=== PATIENT | female | born 1955 | race Caucasian/White ===

== ENCOUNTER → 2024-02-10 | Outpatient (CLI) | payer MEDICARE, OTHER, SELFPAY ==
--- NOTE | 2024-02-10 14:13 | RAD_ITS ---
STUDY: X-RAY - LEFT HAND REASON FOR EXAM: Female, 68 years old. RHEUMATOID ARTHRITIS TECHNIQUE: 3 views of the left hand. COMPARISON: None. FINDINGS: There is generalized osteopenia. There is mild radiocarpal arthrosis. Normal distal radioulnar joint. Normal visualized carpal bones. Normal carpal articulations There is severe degenerative arthrosis at the first carpometacarpal articulation of the thumb. Normal second through fifth carpometacarpal joints. Normal metacarpi. Normal metacarpophalangeal joint of the thumb. Normal interphalangeal joint of the thumb. Normal proximal and distal phalanges of the thumb. Normal metacarpophalangeal joints of the second through fifth fingers. Normal proximal interphalangeal joints of the second through fifth fingers. There is mild degenerative arthrosis of the second and third DIP joints. Normal phalanges of the second through fifth fingers. The soft tissue structures are unremarkable. RAD/Hand Min 3 Views IMPRESSION: Degenerative arthrosis at the radiocarpal joint, first CMC joint, as well as second and third DIP joints. Electronically Signed: Andrew Means MD at 14:32 EDT ,
--- NOTE | 2024-02-10 14:15 | RAD_ITS ---
STUDY: X-RAY - RIGHT HAND REASON FOR EXAM: Female, 68 years old. RHEUMATOID ARTHRITIS TECHNIQUE: 3 views of the right hand. COMPARISON: None. FINDINGS: There is degenerative arthrosis of the radiocarpal joint. Normal distal radioulnar joint. Normal visualized carpal bones. Normal carpal articulations There is degenerative arthrosis at the carpometacarpal articulation of the thumb. Normal second through fifth carpometacarpal joints. Normal metacarpi. Normal metacarpophalangeal joint of the thumb. Normal interphalangeal joint of the thumb. Normal proximal and distal phalanges of the thumb. Normal metacarpophalangeal joints of the second through fifth fingers. Normal proximal interphalangeal joints of the second through fifth fingers. There is minimal degenerative arthrosis of the second through fifth DIP joints. Normal phalanges of the second through fifth fingers. The soft tissue structures are unremarkable. RAD/Hand Min 3 Views IMPRESSION: Degenerative arthrosis of the radiocarpal joint, first CMC joint, and second through fifth DIP joints. Electronically Signed: Andrew Means MD at 14:37 EDT ,
[2024-02-10 18:08] LABS: Absolute Lymphocyte Count 2.66 X10^3/uL (0.83-4.51); Absolute Neutrophil Count 4.5 X10^3/uL (2.0-7.7); Basophil# 0.05 X10^3/uL; Basophil% 0.6 % (0-1); Eosinophil# 0.18 X10^3/uL; Eosinophils% 2.3 % (0-5); Hematocrit 40.7 % (37-47); Hemoglobin 13.1 g/dL (12.0-15.0); Lymphocyte # 2.66 X10^3/ul (0.83-4.51); Lymphocyte % 33.6 % (19-41); Mean Corp Hgb Conc 32.2 g/dL (32-36); Mean Corpuscular Hgb 29.6 pg (27.0-32.0); Mean Corpuscular Volume 91.9 fL (81-99); Mean Platelet Vol. 11.5 fl (6.2-12.0); Monocyte# 0.56 X10^3/uL; Monocyte% 7.1 % (0-10); NRBC Flagged by Analyzer 0 % (0-5); Neutrophil # 4.45 X10^3/uL (2.7-7.7); Neutrophil % 56.1 % (47-70); Platelet Count 237 K/mm3 (150-450); RBC Distribution Width CV 12.6 % (11.6-14.6); RBC Distribution Width SD 42.5 fl (35.1-43.9); Red Blood Count 4.43 M/mm3 (4.2-5.4); White Blood Count 7.9 K/mm3 (4.4-11.0)
[2024-02-10 18:43] LABS: ALB/GLOB Ratio 1.2 RATIO (0.9-2.4); AST(SGOT) 21 U/L (15-37); Alanine Aminotransfer ALT/SGPT 31 U/L (13-56); Albumin, Serum 3.8 g/dL (3.2-5.0); Alkaline Phosphatase 74 U/L (45-117); Anion Gap 7 (5-15); BUN 20 mg/dL (7-18); BUN/Creat Ratio 22.5 RATIO (10-20); CRP < 2.90 mg/L (0.0-3.0); Calcium,Total 9.2 mg/dL (8.5-10.1); Chloride 108 mmol/L (98-107); Creatinine, Serum 0.89 mg/dL (0.55-1.02); EST Glomerular Filtration Rate 67 mL/min (>60); Est Glom Filt Rate - Afr Amer 81 mL/min (>60); Globulin 3.3 g/dL (2.2-4.2); Glucose 104 mg/dL (74-106); Protein, Total 7.1 g/dL (6.4-8.2); Sodium Level 141 mmol/L (136-145)
[2024-02-10 18:57] LABS: Erythrocyte Sedimentation Rate 11 mm/hr (0-30)
[2024-02-10 19:09] LABS: Hepatitis B Surface Antibody Non-Reactive; Hepatitis B Surface Antigen Non-Reactive (Nonreactive); Hepatitis C Antibody Non-Reactive (Nonreactive)
[2024-02-12 11:09] LABS: ANTINUCLEAR ANTIBODIES DIRECT Negative (Negative)
[2024-02-12 14:11] LABS: CCP IgG Antibodies 3 units (0-19)
== END | disposition home or self-care (01) ==
PROVIDERS: PCP Physician Assistant; Referring Provider Internal Medicine Rheumatology; Visit Provider Internal Medicine Rheumatology
DX: M05.79 Rheumatoid arthritis with rheumatoid factor of multiple sites without organ or systems involvement (principal); M79.7 Fibromyalgia
CPT/HCPCS: 36415; 73130; 80053; 85025; 85652; 86038; 86140; 86200; 86431; 86706; 86803; 87340

== ENCOUNTER → 2025-08-16 | Outpatient (CLI) | payer MEDICARE, OTHER, SELFPAY ==
--- OUTSIDE RECORDS SUMMARY | 2025-08-16 19:50 | XMS RPT_ITS | CCD ---
Author Organization [facility] Care Team Providers Care Cyber Security Engineer Name Role Phone Letha Cates Unavailable Unavailable Letha Cates M Unavailable Unavailable [facility] Unavailable Unavailable Letha Cates M Unavailable Unavailable Letha Cates M Unavailable Unavailable Letha Cates M Unavailable Unavailable [facility] Unavailable Unavailable [facility] Unavailable Unavailable Garrett Webb Unavailable Unavailable [facility] Unavailable Unavailable WebbGarrett leon Unavailable Unavailable WebbGrarett leon Unavailable Unavailable [facility] Unavailable Unavailable WebbGarrett leon Unavailable Unavailable WebbGarrett leon Unavailable Unavailable WebbGarrett leon Unavailable Unavailable [facility] Unavailable Unavailable Stentz, Arnold Unavailable Unavailable Unavailable Free, Text Entry Unavailable Unavailable Stentz, Arnold Unavailable Rudy Godoy Unavailable Unavailable Ms. Rudy Godoy Attending Nuzhatvaisabel cosby Stentz, Arnold Primary Care Unavailable Stentz, Arnold Attending Unavailable Stentz, Arnold Referring Unavailable Stentz, Arnold Primary Care Unavailable Stentz, Mr. Arnold Referring Unavailable Stentz, Mr. Arnold Primary Care Unavailable Stentz, Mr. Arnold Attending Unavailable Stentz, Mr. Arnold Referring Unavailable Stentz, Mr. Arnold Primary Care Unavailable Stentz, Mr. Arnold Attending Unavailable Stentz, Mr. Arnold Referring Unavailable Stentz, Mr. Arnold Primary Care Unavailable Stentz, Mr. Arnold Attending Unavailable Stentz, Mr. Arnold Primary Care Unavailable Stentz, Mr. Arnold Attending Unavailable Stentz, Mr. Arnold Referring Unavailable Stentz PA-C, Arnold Primary Care Provider Stentz PA-C, Arnold Unavailable Stentz, Arnold Primary Care Unavailable Steph Castorena Referring Unavailable Steph Castorena Attending Unavailable STENTZ, ARNOLD Primary Care Unavailable STENTZ, ARNOLD Primary Care Unavailable STENTZ, ARNOLD Primary Care Unavailable STENTZ, ARNOLD Primary Care Unavailable STENTZ, ARNOLD Primary Care Unavailable Stentz PA-C, Arnold Primary Care Provider Stentz PA-C, Arnold Unavailable [phone] STENTZ, ARNOLD Referring Unavailable STENTZ, ARNOLD Primary Care Unavailable STENTZ, ARNOLD Primary Care Unavailable JONELLE VIERA Attending Unavailable STENTZ, ARNOLD Primary Care Unavailable JONELLE VIERA Attending Unavailable Stentz PA-C, Arnold Primary Care Provider Stentz PA-C, Arnold Unavailable STENTZ, ARNOLD Attending Unavailable STENTZ, ARNOLD Primary Care Unavailable STENTZ, ARNOLD Attending Unavailable STENTZ, ARNOLD Referring Unavailable STENTZ, ARNOLD Primary Care Unavailable Allergies Allergy Classification Reported Allergen(s) Allergy Type Date of Onset Reaction(s) Facility (20 sources) Cortisone; Translations: [cortisone] Drug Allergy 3 Hives [facility] (16 sources) DULoxetine; Translations: [DULOXETINE] Drug Allergy 0 Nausea/vomiting [facility] (17 sources) FLUoxetine; Translations: [FLUOXETINE] Drug Allergy 1 [facility] Work Phone: (8 sources) Pneumococcal vaccine; Translations: [PNEUMOCOCCAL VACCINE] Drug Allergy 8 [facility] Work Phone: (17 sources) Sertraline; Translations: [SERTRALINE] Drug Allergy 1 [facility] Work Phone: Medications Current Medications Medication Drug Class(es) Dates Sig (Normalized) Sig (Original) acyclovir 400 mg oral tablet (20 sources) Herpesvirus Nucleoside Analog DNA Polymerase Inhibitor, Herpes Simplex Virus Nucleoside Analog DNA Polymerase Inhibitor, Herpes Zoster Virus Nucleoside Analog DNA Polymerase Inhibitor Start: 04-01-2025 take 1 tablet by mouth twice daily acyclovir (Zovirax) 400 mg tablet Indications: Herpes simplex viral infection Take 1 tablet (400 mg) by mouth 2 times a day. 180 tablet 3 04/01/2025 Active Start: 02-27-2024 take 1 tablet by yohannes twice daily acyclovir (Zovirax) 400 mg tablet Indications: Herpes simplex viral infection Take 1 tablet (400 mg) by mouth 2 times a day. 180 tablet 3 02/27/2024 Active Start: 03-07-2023 End: 03-07-2023 take 1 tablet by mouth twice daily acyclovir (Zovirax) 400 mg tablet Indications: Herpes simplex viral infection Take 1 tablet (400 mg) by mouth 2 times a day. 180 tablet 3 03/07/2023 Active [id number] 200 actuat albuterol 0.09 mg/actuat metered dose inhaler (3 sources) beta2-Adrenergic Agonist Start: 10-17-2023 End: 10-16-2024 take 2 puff(s) by inhalation every six hours for wheezing albuterol 90 mcg/actuation inhaler Indications: Influenza B , Acute bronchitis, unspecified organism Inhale 2 puffs every 6 hours if needed for wheezing. 18 g 10/17/2023 03/09/2024 Discontinued (Med List Cleanup) amoxicillin 875 mg / clavulanate 125 mg oral tablet (2 sources) Penicillin-class Antibacterial Start: 09-14-2024 End: 09-24-2024 take 1 tablet by mouth twice daily amoxicillin-pot clavulanate (Augmentin) 875-125 mg tablet Indications: acute bacterial sinusitis Take 1 tablet by mouth 2 times a day for 10 days. 20 tablet 09/14/2024 09/24/2024 Active Start: 05-27-2023 End: 06-03-2023 take 1 tablet by mouth twice daily amoxicillin-pot clavulanate (Augmentin) 875-125 mg tablet Indications: Acute non-recurrent maxillary sinusitis Take 1 tablet (875 mg) by mouth 2 times a day for 7 days. 14 tablet 0 05/27/2023 06/03/2023 Active atorvastatin 20 mg oral tablet (4 sources) HMG-CoA Reductase Inhibitor Start: 12-11-2024 End: 12-11-2025 take 1 tablet by mouth once daily atorvastatin (Lipitor) 20 mg tablet Indications: Mixed hyperlipidemia Take 1 tablet (20 mg) by mouth once daily. 90 tablet 3 12/11/2024 12/11/2025 Active azithromycin 250 mg oral tablet (3 sources) Macrolide Antimicrobial Start: 10-17-2023 End: 10-22-2023 azithromycin (Zithromax Z-Matthew) 250 mg tablet Indications: Influenza B , Acute bronchitis, unspecified organism Take 2 tablets (500 mg) on Day 1, followed by 1 tablet (250 mg) once daily on Days 2 through 5. 6 tablet 0 10/17/2023 10/22/2023 Active Start: 08-14-2022 take 2 tablets by mo ut once, then take 1 tablet by mouth once daily azithromycin 250 mg oral tablet ; Take 2 tabs (500mg) x 1 days, then 1 tab (250mg) once daily x 4 days Quantity: 6 Refills: 0 Ordered: 14-Aug-2022 Rudy Godoy Start: 14-Aug-2022 Generic Substitution Allowed Comments: Do not take dairy products, antacids, or iron preparations within one hour of this medication.Finish all this medication unless otherwise directed by prescriber. Comment on above: Do not take dairy pr oducts, antacids, or iron preparations within one hour of this medication.Finish all this medication unless otherwise directed by prescriber. bacitracin zinc 0.5 unt/mg topical ointment (2 sources) Start: 2024 End: 2024 bacitracin 500 unit/gram ointment Indications: Dog bite, initial encounter Apply topically 2 times a day. 14 g 09/14/2024 12/11/2024 Discontinued (Med List Cleanup) brompheniramine maleate 0.4 mg/ml / dextromethorphan hydrobromide 2 mg/ml / pseudoephedrine hydrochloride 6 mg/ml oral solution (2 sources) alpha-Adrenergic Agonist, Uncompetitive A-vwoydm-Z-aspartate Receptor Antagonist, Sigma-1 Agonist Start: 2022 End: 2022 take 5 mL by mouth four times daily as needed for congestion brompheniramine-ps eudoeph-DM 2-30-10 mg/5 mL syrup Indications: Acute recurrent maxillary sinusitis Take 5 mL by mouth 4 times a day as needed for congestion for up to 10 days. 120 mL 0 06/20/2023 06/30/2023 Active Start: 12-17-2022 End: 12-27-2022 take 5 mL by mouth four times daily as needed for congestion qucqfdjkhagvlsg-viakxqada-PB 2-30-10 mg/ 5 mL syrup Indications: Acute recurrent maxillary sinusitis Take 5 mL by mouth 4 times a day as needed for congestion for up to 10 days. 120 mL 0 12/17/2022 12/27/2022 Active clindamycin 150 mg oral capsule (2 sources) Lincosamide Antibacterial Start: 07-09-2023 End: 07-19-2023 take 2 capsules by mouth four times daily clindamycin (Cleocin) 150 mg capsule Indications: Chronic maxillary sinusitis Take 2 capsules (300 mg) by mouth 4 times a day for 10 days. 80 capsule 0 07/09/2023 07/19/2023 Active diclofenac sodium 50 mg delayed release oral tablet (11 sources) Nonsteroidal Anti-inflammatory Drug Start: 03-09-2024 End: 03-09-2025 take 1 tablet by mouth twice daily diclofenac (Voltaren) 50 mg EC tablet Indications: Arthritis Take 1 tablet (50 mg) by mouth 2 times a day. Do not crush, chew, or split. 180 tablet 3 03/09/2024 03/09/2025 Active Start: 11-01-2022 End: 09-19-2024 take 1 tablet by mouth three times daily diclofenac (Voltaren) 50 mg EC tablet Indications: Arthritis Take 1 tablet (50 mg) by mouth 3 times a day. Do not crush, chew, or split. 270 tablet 1 09/20/2023 03/09/2024 Discontinued (Reorder) Start: 10-11-2022 take 1 tablet by yohannes three times daily Diclofenac Sodium 50 MG Oral Tablet Delayed Release TAKE 1 TABLET 3 times daily Quantity: 90 Refills: 1 Ordered: 11-Oct-2022 Arnold Hernandes PA-C Start : 11-Oct-2022 Active DULoxetine 60 mg delayed release oral capsule (5 sources) Serotonin and Norepinephrine Reuptake Inhibitor take 1 capsule by mouth once daily DULoxetine (Cymbalta) [address] capsule Take 1 capsule (60 mg) by mouth once daily. Do not crush or chew. Active take 1 capsule by mouth once latrell ly DULoxetine (Cymbalta) [address] capsule Take 1 capsule (30 mg) by mouth once daily. Do not crush or chew. Active erythromycin 0.005 mg/mg ophthalmic ointment (1 source) Macrolide, Macrolide Antimicrobial Start: 05-05-2025 End: 05-12-2025 erythromycin (Romycin) 5 mg/gram (0.5 %) ophthalmic ointment Indications: Left eye pain Apply to left eye 3 times a day for [address] a 1/2 inch ribbon of ointment into the lower eyelid. 3.5 g 05/05/2025 05/12/2025 Active 24 hr etodolac 500 mg extended release oral tablet (2 sources) Nonsteroidal Anti-inflammatory Drug Start: 03-07-2023 End: 03-06-2024 take 1 tablet by mouth once daily etodolac XL (Lodine XL) 500 mg 24 hr tablet Indications: Primary osteoarthritis involving multiple joints Take 1 tablet (500 mg) by mouth once daily. 90 tablet 3 03/25/2023 05/27/2023 Discontinued (Ineffective) fluticasone propionate 0.05 mg/actuat metered dose nasal spray (20 sources) Corticosteroid Start: 06-14-2025 take 1 spray(s) nasal route twice daily fluticasone (Flonase) 50 mcg/actuation nasal spray Indications: Seasonal allergies Administer 1 spray into each nostril 2 times a day. 16 g 3 06/14/2025 Active Start: 03-09-2024 End: 06-14-2025 take 1 spray(s) nasal route twice daily fluticasone (Flonase) 50 mcg/actuation nasal spray Indications: Seasonal allergies Administer 1 spray into each nostril 2 times a day. 16 g 3 03/09/2024 06/14/2025 Discontinued (Reorder) Start: 06-07-2022 End: 03-09-2024 take 1 spray(s) nasal route twice daily fluticasone (Flonase) 50 mcg/actuation nasal spray Administer 1 spray into affected nostril(s) 2 times a day. 06/07/2022 03/09/2024 Discontinued (Reorder) Start: 06-07-2022 take 1 spray(s) nasa l route twice daily EQL Fluticasone Propionate 50 MCG/ACT SUSP USE 1 SPRAY IN EACH NOSTRIL TWICE DAILY. Quantity: 3 Refills: 3 Ordered: 12-Jun-2022 Anna MONTANO Arnold Start : 07-Jun-2022 Active folic acid 1 mg oral tablet (7 sources) Start: 03-03-2024 take 1 tablet by mouth in the morning folic acid (Folvite) 1 mg tablet Take 2 tablets (2 mg) by mouth early in the morning.. 03/03/2024 Active hydroxychloroquine sulfate 200 mg oral tablet (1 source) Antimalarial, Antirheumatic Agent Start: 02-24-2025 take 1.5 tablets by mouth in the morning hydroxychloroquine (Plaquenil) 200 mg tablet Take 1.5 tablets (300 mg) by mouth early in the morning.. 02/24/2025 Active levoFLOXacin 500 mg oral tablet (2 sources) Quinolone Antimicrobial Start: 06-11-2023 End: 06-18-2023 take 1 tablet by mouth once daily levoFLOXacin (Levaquin) 500 mg tablet Indications: Acute recurrent maxillary sinusitis Take 1 tablet (500 mg) by mouth once daily for 7 days. 7 tablet 0 06/11/2023 06/18/2023 Active Start: 12-17-2022 End: 12-27-2022 take 1 tablet by mouth once daily levoFLOXacin (Levaquin) 500 mg tablet Indications: Acute recurrent maxillary sinusitis Take 1 tablet (500 mg) by mouth once daily for 10 days. 10 tablet 0 12/17/2022 12/27/2022 Active loratadine 10 mg oral tablet (20 sources) take 1 tablet by yohannes th once daily loratadine (Claritin) 10 mg tablet Take 1 tablet (10 mg) by mouth once daily. Active Loratadine 10 MG Oral Tablet Quantity: 0 Refills: 0 Ordered: 05-Mar-2022 DO Active methotrexate 2.5 mg oral tablet (9 sources) Folate Analog Metabolic Inhibitor Start: 03-03-2024 End: 12-11-2024 take 5 tablets by mouth every week methotrexate (Trexall) 2.5 mg tablet Take 5 tablets (12.5 mg total) by mouth 1 (one) time per week. 03/03/2024 12/11/2024 Discontinued (Med List Cleanup) methotrexate, PF , 7.5 mg/0.3 mL syringe Inject under the skin. Active montelukast 10 mg oral tablet (20 sources) Leukotriene Receptor Antagonist Start: 04-06-2025 End: 04-06-2026 take 1 tablet by mouth once daily at bedtime montelukast (Singulair) 10 mg tablet Indications: Seasonal allergies Take 1 tablet (10 mg) by mouth once daily at bedtime. 90 tablet 3 04/06/2025 04/06/2026 Active Start: 06-07-2022 End: 03-09-2025 take 1 tablet by mouth once daily at bedtime montelukast (Singulair) 10 mg tablet Indications: Seasonal allergies Take 1 tablet (10 mg) by mouth once daily at bedtime. 90 tablet 3 03/09/2024 03/09/2025 Active omeprazole 40 mg delayed release oral capsule (20 sources) Proton Pump Inhibitor Start: 09-09-2023 End: 08-31-2025 take 1 capsule by mouth once daily omeprazole (PriLOSEC) [address] capsule Indications: Gastroesophageal reflux disease, unspecified whether esophagitis present Take 1 capsule (40 mg) by mouth once daily. 90 capsule 3 08/31/2024 08/31/2025 Active Start: 03-07-2023 End: 03-06-2024 take 1 capsule by mouth once daily omeprazole (PriLOSEC) [address] capsule Indications: Gastroesophageal reflux disease, unspecified whether esophagitis present Take 1 capsule (20 mg) by mouth once daily. 90 capsule 3 03/07/2023 09/09/2023 Discontinued (Reorder) take 2 capsules by m outh once daily before breakfast Omeprazole 20 MG Oral Capsule Delayed Release TAKE 2 CAPSULES DAILY EVERY MORNING BEFORE BREAKFAST. Quantity: 180 Refills: 3 Ordered: 05-Apr-2022 Arnold Hernandes PA-C Active ondansetron 4 mg oral tablet (20 sources) Serotonin-3 Receptor Antagonist Start: 06-07-2022 End: 03-09-2025 take 1 tablet by mouth every six hours for nausea and nausea ondansetron (Zofran) 4 mg tablet Indications: Nausea Take 1 tablet (4 mg) by mouth every 6 hours. 40 tablet 3 03/09/2024 03/09/2025 Active pregabalin 300 mg oral capsule (20 sources) Start: 06-10-2025 End: 07-11-2025 take 1 capsule by mouth once daily in the evening pregabalin (Lyrica) 300 mg capsule Indications: Polyarthritis with positive rheumatoid factor (Multi) , Primary osteoarthritis involving multiple joints , Rheumatoid arthritis with positive rheumatoid factor, involving unspecified site (Multi) Take 1 capsule (300 mg) by mouth once daily. 30 capsule 06/11/2025 1:03 PM EDT 06/10/2025 07/11/2025 Active Start: 04-08-2025 End: 05-12-2025 take 1 capsule by mouth once daily in the evening pregabalin (Lyrica) 300 mg capsule Indications: Polyarthritis with positive rheumatoid factor (Multi) , Primary osteoarthritis involving multiple joints , Rheumatoid arthritis with positive rheumatoid factor, involving unspecified site (Multi) Take 1 capsule (300 mg) by mouth once daily. 30 capsule 04/12/2025 6:10 PM EDT 04/08/2025 05/12/2025 Active Start: 02-08-2025 take 1 capsule by mo [facility] once daily pregabalin (Lyrica) 225 mg capsule Indications: Controlled type 2 diabetes with neuropathy Take 1 capsule (225 mg) by mouth once daily. 30 capsule 02/08/2025 Active Start: 12-11-2024 End: 01-10-2025 take 1 capsule by mouth once daily pregabalin (Lyrica) 300 mg capsule Indications: Controlled type 2 diabetes with neuropathy Take 1 capsule (300 mg) by mouth once daily. 30 capsule 12/11/2024 01/10/2025 Active Start: 11-05-2024 End: 12-11-2024 take 1 capsule by mouth once daily pregabalin (Lyrica) 225 mg capsule Indications: Controlled type 2 diabetes with neuropathy Take 1 capsule (225 mg) by mouth once daily. 30 capsule 11/05/2024 12/11/2024 Discontinued (Reorder) Start: 09-11-2024 End: 10-11-2024 take 1 capsule by mouth once daily pregabalin (Lyrica) 225 mg capsule Indications: Controlled type 2 diabetes with neuropathy Take 1 capsule (225 mg) by mouth once daily. 30 capsule 09/11/2024 10/11/2024 Active Start: 06-11-2024 End: 07-11-2024 take 1 capsule by mouth once daily pregabalin (Lyrica) 225 mg capsule Indications: Controlled type 2 diabetes with neuropathy Take 1 capsule (225 mg) by mouth once daily. 30 capsule 06/11/2024 07/11/2024 Active Start: 03-09-2024 End: 04-08-2024 take 1 capsule by mouth once daily pregabalin (Lyrica) 225 mg capsule Indications: Controlled type 2 diabetes with neuropathy (Multi) Take 1 capsule (225 mg) by mouth once daily. 30 capsule 03/09/2024 04/08/2024 Active Start: 02-11-2024 End: 03-09-2024 take 1 capsule by mouth once daily pregabalin (Lyrica) 300 mg capsule Indications: Controlled type 2 diabetes with neuropathy (Multi) Take 1 capsule (300 mg) by mouth once daily. 30 capsule 02/11/2024 03/09/2024 Discontinued (Reorder) Start: 10-14-2023 End: 01-09-2024 take 1 capsule by mouth once daily pregabalin (Lyrica) 300 mg capsule Indications: Controlled type 2 diabetes with neuropathy (Multi) Take 1 capsule (300 mg) by mouth once daily. 30 capsule 12/10/2023 01/09/2024 Active Start: 08-15-2023 End: 10-09-2023 take 1 capsule by mouth once daily pregabalin (Lyrica) 300 mg capsule Indications: Controlled type 2 diabetes with neuropathy (CMS/HCC) Take 1 capsule (300 mg) by mouth once daily. 30 capsule 0 09/09/2023 10/09/2023 Active Start: 05-14-2023 End: 07-11-2023 take 1 capsule by mouth once daily pregabalin (Lyrica) 300 mg capsule Indications: Controlled type 2 diabetes with neuropathy (CMS/HCC) Take 1 capsule (300 mg) by mouth once daily. 30 capsule 0 06/11/2023 07/11/2023 Active Start: 02-15-2023 End: 03-17-2023 take 1 capsule by mouth once daily pregabalin (Lyrica) 300 mg capsule Indications: Controlled type 2 diabetes with neuropathy (CMS/HCC) Take 1 capsule (300 mg) by mouth once daily. 30 capsule 0 02/15/2023 03/17/2023 Active Start: 12-07-2022 End: 01-06-2023 take 1 capsule by mouth once daily pregabalin (Lyrica) 300 mg capsule Indications: Controlled type 2 diabetes with neuropathy (CMS/HCC) Take 1 capsule (300 mg) by mouth once daily. 30 capsule 0 12/07/2022 01/06/2023 Active take 1 capsule by [facility] once daily Pregabalin 300 MG Oral Capsule TAKE 1 CAPSULE Daily Quantity: 30 Refills: 0 Ordered: 08-Oct-2022 Stentchetna PA-C Arnold Active take 1 capsule by [facility] twice daily Pregabalin 300 MG Oral Capsule Take 1 capsule twice daily Quantity: 60 Refills: 0 Ordered: 05-Jun-2022 Stentchetna COSME-C, Arnold Active take [address] [facility] at bedtime Pregabalin 300 MG Oral Capsule TAKE 2 CAPSULE Bedtime Quantity: 60 Refills: 0 Ordered: 05-Apr-2022 Anna MONTANO Arnold Active propranolol hydrochloride 80 mg oral tablet (20 sources) beta-Adrenergic Kris Start: 06-11-2023 End: 06-14-2026 take 1 tablet by mouth once daily propranolol (Inderal) 80 mg tablet Indications: Migraine without status migrainosus, not intractable, unspecified migraine type Take 1 tablet (80 mg) by mouth once daily. 90 tablet 3 06/14/2025 06/14/2026 Active Start: 06-07-2022 take 1 capsule by [facility] once daily Propranolol HCl ER 80 MG Oral Capsule Extended Release 24 Hour TAKE 1 CAPSULE Daily Quantity: 90 Refills: 3 Ordered: 12-Jun-2022 Stentchetna PA-C Arnold Start : 07-Jun-2022 Active take 1 tablet by [facility] once daily Propranolol HCl - 80 MG Oral Tablet Take 1 tablet daily Quantity: 90 Refills: 3 Ordered: 05-Apr-2022 Stentchetna COSME-C Arnold Active rosuvastatin calcium 10 mg oral tablet (20 sources) HMG-CoA Reductase Inhibitor Start: 03-07-2023 End: 03-09-2025 take 1 tablet by mouth once daily at bedtime rosuvastatin (Crestor) 10 mg tablet Indications: Hyperlipidemia, unspecified hyperlipidemia type Take 1 tablet (10 mg) by mouth once daily at bedtime. 90 tablet 3 03/09/2024 12/11/2024 Discontinued (Med List Cleanup) semaglutide (OZEMPIC) 1 mg/dose (4 mg/3 mL) pen injector (2 sources) Start: 05-31-2024 End: 06-30-2024 inject 1 mg by subcutaneous injection every week semaglutide (OZEMPIC) 1 mg/dose (4 mg/3 mL) pen injector Indications: Controlled type 2 diabetes with neuropathy Inject 1 mg under the skin 1 (one) time per week. 3 mL 05/31/2024 06/30/2024 Active Start: 03-15-2024 End: 04-14-2024 inject 1 mg by subcutaneous injection every week semaglutide (OZEMPIC) 1 mg/dose (4 mg/3 mL) pen injector Indications: Controlled type 2 diabetes with neuropathy (Multi) Inject 1 mg under the skin 1 (one) time per week. 3 mL 03/15/2024 04/14/2024 Active semaglutide (Ozempic) 2 mg/d ose (8 mg/3 mL) pen injector (2 sources) Start: 06-30-2024 End: 12-11-2024 semaglutide (Ozempic) 2 mg/d ose (8 mg/3 mL) pen injector Indications: Controlled type 2 diabetes with neuropathy Inject 2 mg under the skin every 7 days. 9 mL 3 06/30/2024 12/11/2024 Discontinued (Side effects) Start: 06-30-2024 semaglutide (O zempic) 2 mg/dose (8 mg/3 mL) pen injector Indications: Controlled type 2 diabetes with neuropathy Inject 2 mg under the skin every 7 days. 9 mL 3 06/30/2024 Active semaglutide 0.25 mg or 0.5 mg (2 mg/3 mL) pen injector (2 sources) Start: 03-15-2024 inject 0.25 mg by subcutaneous injection every week, then inject 0.5 mg by subcutaneous injection every week semaglutide 0.25 mg or 0.5 mg (2 mg/3 mL) pen injector Indications: Controlled type 2 diabetes with neuropathy Inject 0.25 mg under the skin 1 (one) time per week for 30 days, THEN 0.5 mg 1 (one) time per week. 6 mL 03/15/2024 Active Start: 03-15-2024 End: 05-14-2024 inject 0.25 mg by subcutaneous injection every week, then inject 0.5 mg by subcutaneous injection every week semaglutide 0.25 mg or 0.5 mg (2 mg/3 mL) pen injector Indications: Controlled type 2 diabetes with neuropathy (Multi) Inject 0.25 mg under the skin 1 (one) time per week for 30 days, THEN 0.5 mg 1 (one) time per week. 6 mL 03/15/2024 05/14/2024 Active tetracaine hydrochloride 5 mg/ml ophthalmic solution (2 sources) [facility] Start: 05-05-2025 tetracaine (Altacaine) 0.5 % ophthalmic solution 1 drop tirzepatide (Mounjaro) 10 mg/0.5 mL pen injector (2 sources) Start: 05-10-2025 inject 10 mg by subcutaneous injection every week tirzepatide (Mounjaro) 10 mg/0.5 mL pen injector Indications: Controlled type 2 diabetes with neuropathy (Multi) Inject 10 mg under the skin 1 (one) time per week. 2 mL 1 05/10/2025 Active Start: 03-11-2025 inject 10 mg by subc utaneous injection every week tirzepatide (Mounjaro) 10 mg/0.5 mL pen injector Indications: Controlled type 2 diabetes with neuropathy Inject 10 mg under the skin 1 (one) time per week. 2 mL 1 03/11/2025 Active tirzepatide (Mounjaro) 5 mg/0.5 mL pen injector (2 sources) Start: 12-11-2024 End: 03-11-2025 inject 5 mg by subcutaneous injection every week tirzepatide (Mounjaro) 5 mg/0.5 mL pen injector Indications: Controlled type 2 diabetes with neuropathy Inject 5 mg under the skin 1 (one) time per week. 6 mL 12/11/2024 03/11/2025 Active Completed/Discontinued Medications Medication Drug Class(es) Dates Sig (Normalized) Sig (Original) celecoxib 100 mg oral capsule (15 sources) Nonsteroidal Anti-inflammatory Drug take 1 capsule by mouth once daily in the morning, then take 2 capsules by mouth once daily in the evening Celecoxib 100 MG Oral Capsule TAKE 1 CAPSULE EVERY MORNING, AND TAKE 2 CAPSULES EVERY EVENING. Quantity: 270 Refills: 3 Ordered: 02-Aug-2022 Arnold Hernandes PA-C Active take 2 capsules by mouth once da rosa isela Celecoxib 100 MG Oral Capsule TAKE 2 CAPSULE Daily Quantity: 180 Refills: 3 Ordered: 10-Apr-2022 Arnold Hernandes PA-C Active meloxicam 15 mg oral tablet (2 sources) Nonsteroidal Anti-inflammatory Drug Start: 10-01-2022 take 1 tablet by mouth once daily Meloxicam 15 MG Oral Tablet Take 1 tablet daily Quantity: 30 Refills: 2 Ordered: 01-Oct-2022 Arnold Hernandes PA-C Start : 01-Oct-2022 Active methylPREDNISolone (3 sources) Corticosteroid Start: 10-17-2023 End: 12-10-2023 methylPREDNISolone (Medrol Dospak) 4 mg tablets Indications: Influenza B , Acute bronchitis, unspecified organism Take as directed on package. 21 tablet 10/17/2023 12/10/2023 Discontinued (Med List Cleanup) Start: 10-17-2023 methylPREDNISo lone (Medrol Dospak) 4 mg tablets Indications: Influenza B , Acute bronchitis, unspecified organism Take as directed on package. 21 tablet 0 10/17/2023 Active Start: 06-11-2023 End: 06-18-2023 methylPREDNISolone (Medrol D ospak) 4 mg tablets Indications: Acute recurrent maxillary sinusitis Take as directed on package. 21 tablet 0 06/11/2023 06/18/2023 Active potassium 99 mg extended rel ease oral tablet (18 sources) Potassium 99 MG Oral Tablet Quantity: 0 Refills: 0 Ordered: 05-Mar-2022 DO Active Womens Daily Formula TABS (13 sources) Womens Daily For bernie TABS Quantity: 0 Refills: 0 Ordered: 05-Mar-2022 DO Active Problems Active Problems Problem Classification Problem Date Documented Da te Episodic/Chronic Abdominal pain (1 source) Epigastric pain; Translations: [Epigastric pain] 08-29-2023 Episodic Acute bronchitis (1 source) Acute bronchitis; Translations: [Acute bronchitis, unspecified] 10-17-2023 Episodic Diabetes mellitus with complications (20 sources) Diabetes mellitus; Translations: [Diabetes with neurological manifestations, type II or unspecified type, not stated as uncontrolled] Onset: 3 03-07-2023 Chronic Disorders of lipid metabolism (20 sources) Hyperlipidemia; Translations: [Other and unspecified hyperlipidemia] Onset: 3 03-07-2023 Chronic Esophageal disorders (20 sources) Gastroesophageal reflux disease; Translations: [Esophageal reflux] Onset: 3 03-07-2023 Chronic Headache; including migraine (20 sources) Migraine; Translations: [Migraine, unspecified, without mention of intractable migraine without mention of status migrainosus] Onset: 4 06-11-2024 Chronic Headache; including migraine (4 sources) Headache; including migraine; Translations: [Headache, unspecified] Onset: 2 08-14-2022 Comment on above: HEADACHE EAR PAIN Influenza (1 source) Influenza due to Influenza B virus; Translations: [Influenza due to other identified influenza virus with other respiratory manifestations] 10-17-2023 Episodic Malaise and fatigue (2 sources) Other malaise; Translations: [Other malaise] Onset: 2 Episodic Osteoarthritis (20 sources) Arthritis; Translations: [Arthropathy, unspecified, site unspecified] Onset: 3 03-07-2023 Chronic Other aftercare (18 sources) H/O: high risk medication; Translations: [Long-term (current) use of other medications] 09-09-2023 Episodic Other bone disease and musculoskeletal deformities (2 sources) Degenerative joint disease involving multiple joints; 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, multiple sites] Onset: 3 03-07-2023 Chronic Other connective tissue disease (18 sources) Cramp in lower limb; Translations: [Cramp of limb] Episodic Other connective tissue disease (1 source) Myalgia, unspecified site; Translations: [Myalgia, unspecified site] Onset: 2 Episodic Other eye disorders (1 source) Pain of left eye; Translations: [Ocular pain, left eye] 05-05-2025 Episodic Other eye disorders (2 sources) Ocular pain, left eye; Translations: [Ocular pain, left eye] Onset: 5 Episodic Other gastrointestinal disorders (1 source) Flatulence symptom ; Translations: [Flatulence] 08-29-2023 Episodic Other gastrointestinal disorders (1 source) Constipation; Translations: [Constipation, unspecified] 08-29-2023 Episodic Other non-traumatic joint disorders (4 sources) Joint pain; Translations: [Pain in joint, site unspecified] 12-10-2023 Episodic Other nutritional; endocrine; and metabolic disorders (16 sources) Obesity; Translations: [Obesity, unspecified] Chronic Other screening for suspected conditions (not mental disorders or infectious disease) (20 sources) Patient encounter status; Translations: [Other screening mammogram] Onset: 3 Episodic Other upper respiratory disease (20 sources) Seasonal allergy; Translations: [Allergic rhinitis, cause unspecified] Onset: 3 03-07-2023 Chronic Other upper respiratory disease (2 sources) Other seasonal allergic rhinitis; Translations: [Other seasonal allergic rhinitis] Onset: 3 Chronic Other upper respiratory infections (3 sources) Chronic maxillary sinusitis; Translations: [Chronic maxillary sinusitis] 06-28-2023 Chronic Other upper respiratory infections (8 sources) Acute pharyngitis; Translations: [Acute pharyngitis] Onset: 2 08-14-2022 Episodic Residual codes; unclassified (3 sources) Postmenopausal state; Translations: [Asymptomatic menopausal state] 09-09-2023 Episodic Rheumatoid arthritis and related disease (16 sources) Polyarthropathy; Translations: [Other rheumatoid arthritis with rheumatoid factor of unspecified site] Onset: 4 Resolved: 5 12-10-2023 Chronic Unclassified (1 source) 3 MONTHS 06-07-2022 Comment on above: 3 MONTHS Unclassified (1 source) ENCOUNTER FOR SCREENING MAMMOGRAM FOR BREAST CANCER - (Z12.31) 03-05-2022 Comment on above: ENCOUNTER FOR SCREEN ING MAMMOGRAM FOR BREAST CANCER - (Z12.31) Unclassified (1 source) Contact with and (suspected) exposure to COVID-19; Translations: [Contact with and (suspected) exposure to COVID-19] Onset: 2 Unclassified (2 sources) Patient encounter status 12-11-2024 Past or Other Problems Problem Classification Problem Date Documented Da te Episodic/Chronic E Codes: Natural/environment (3 sources) Dog bite - wound; Translations: [Bitten by dog, initial encounter] Onset: 09-14-2024 09-14-2024 Episodic Nausea and vomiting (20 sources) Nausea; Translations: [Nausea alone] Onset: 03-07-2023 03-07-2023 Episodic Other aftercare (4 sources) Other terminal operations supervisor (current) drug therapy; Translations: [Other assisted (current) drug therapy] Onset: 04-24-2024 Episodic Other connective tissue disease (2 sources) Fibromyalgia; Translations: [Fibromyalgia] Onset: 04-24-2024 Episodic Unclassified (20 sources) Onset: 12-17-2022 Resolved: 06-14-2025 12-17-2022 Viral infection (20 sources) Herpes simplex; Translations: [Herpes simplex without mention of complication] Onset: 03-07-2023 03-07-2023 Episodic Results Test Name Value Interpretation Reference Range Facility ALBUMIN, RANDOM URINE W/CREA TININEon 06-09-2025 ALBUMIN, URINE 0.4 mg/dL Normal See Note: [facility] Comment on above: Result Comment: Refe rence Range: Reference Range Not established Performed By: #### 7 600, 73756, 6517, 68362, 1759 #### [facility] [address], [address] [place] [address] Archivist Military History: George Coello MD ALBUMIN/CREATININE RATIO, RANDOM URINE 3 mg/g creat Normal <30 [facility] Comment on above: Result Comment: The ADA defines abnormalities in albumin excretion as follows: Albuminuria Category Result (mg/g creatinine) Normal to Mildly increased <30 Moderately increased 30-299 Severely increased > OR = 300 The ADA recommends that at least two of three specimens collected within a 3-6 month period be abnormal before considering a patient to be within a diagnostic category. Performed By: #### 7 600, 89995, 6517, 61183, 1759 #### [facility] [address], [address] [place] [address] Archivist Military History: George Coello MD Creatinine (U) [Mass/Vol] 117 mg/dL Normal 20-275 [facility] Comment on above: Performed By: #### 7 600, 48503, 6517, 02718, 1759 #### [facility] [address], [address] [place] [address] Archivist Military History: George Coello MD CBC (H/H, RBC, INDICES, WBC, PLT)on 06-09-2025 Erythrocyte distribution width (RBC) [Ratio] 12.9 % Normal 11.0-15.0 [facility] Comment on above: Performed By: #### 3 61, 19385, 175, 73782, 7600 #### [facility] of [address], [address] [place] [address] Archivist Military History: George Coello MD Hematocrit (Bld) [Volume fraction] 42.1 % Normal 35.0-45.0 [facility] Comment on above: Performed By: #### 3 61, 83562, 175, 89796, 7600 #### [facility] of [place] [address] Archivist Military History: George Coello MD Hemoglobin (Bld) [Mass/Vol] 14.0 g/dL Normal 11.7-15.5 [facility] Comment on above: Performed By: #### 3 61, , 175, 66015, 7600 #### [facility] of [address], [address] [place] [address] Archivist Military History: George Coello MD MCH (RBC) [Entitic mass] 32.6 pg Normal 27.0-33.0 [facility] Comment on above: Performed By: #### 3 61, 00405, 175, 24881, 7600 #### [facility] [place] [address] Archivist Military History: George Coello MD MCHC (RBC) [Mass/Vol] 33.3 g/dL Normal 32.0-36.[address] [facility] Comment on above: Result Comment: For adults, a slight decrease in the calculated MCHC value (in the range of 30 to 32 g/dL) is most likely not clinically significant; however, it should be interpreted with caution in correlation with other red cell parameters and the patient's clinical condition. Performed By: #### 3 61, 62653, 175, 34142, 7600 #### [facility] [place] [address] Archivist Military History: George Coello MD MCV (RBC) [Entitic vol] 97.9 fL Normal 80.0-100.0 [facility] Comment on above: Performed By: #### 3 6127, 48978, 1759, 19092, 7600 #### [facility] of [place] [address] Archivist Military History: George Coello MD Platelet mean volume (Bld) [Entitic vol] 10.4 fL Normal 7.5-12.5 [facility] Comment on above: Performed By: #### 3 61, 25957, 175, 68773, 7600 #### [facility] of [place] [address] Archivist Military History: George Coello MD Platelets (Bld) [#/Vol] 257 10*3/uL Normal 140-400 [facility] Comment on above: Performed By: #### 3 61, 96982, 175, 67825, 7600 #### [facility] of [place] [address] Archivist Military History: George Coello MD RBC (Bld) [#/Vol] 4.30 10*6/uL Normal 3.80-5.10 [facility] Comment on above: Performed By: #### 3 61, 43187, 175, 71076, 7600 #### [facility] of [place] [address] Archivist Military History: George Coello MD WBC (Bld) [#/Vol] 5.8 10*3/uL Normal 3.8-10.8 [facility] Comment on above: Performed By: #### 3 61, 23125, 1759, 55807, 7600 #### [facility] of [place] [address] Archivist Military History: George Coello MD COMPREHENSIVE METABOLIC PANE L W/ANION GAPon 06-09-2025 Albumin [Mass/Vol] 3.9 g/dL Normal 3.6-5.1 [facility] Comment on above: Performed By: #### 7 600, 52224, 6517, 43594, 1759 #### [facility] of [place] [address] Archivist Military History: George Coello MD ALP [Catalytic activity/Vol] 44 U/L Normal 37-153 [facility] Comment on above: Performed By: #### 7 600, 99003, 6517, 94771, 1759 #### [facility] of [place] [address] Archivist Military History: George Coello MD ALT [Catalytic activity/Vol] 19 U/L Normal 6-29 [facility] Comment on above: Performed By: #### 7 600, 69535, 6517, 51083, 175 #### [facility] [place] [address] Archivist Military History: George Coello MD AST [Catalytic activity/Vol] 22 U/L Normal 10-35 [facility] Comment on above: Performed By: #### 7 600, 65108, 6517, 27129, 175 #### [facility] [place] [address] Archivist Military History: George Coello MD Bilirubin [Mass/Vol] 0.6 mg/dL Normal 0.2-1.2 [facility] Comment on above: Performed By: #### 7 600, 23847, 6517, 54839, 175 #### [facility] of [place] [address] Archivist Military History: George Coello MD Calcium [Mass/Vol] 9.3 mg/dL Normal 8.6-10.4 [facility] Comment on above: Performed By: #### 7 600, 76069, 6517, 94472, 1759 #### [facility] of [place] [address] Archivist Military History: George Coello MD Chloride [Moles/Vol] 105 mmol/L Normal 98-110 [facility] Comment on above: Performed By: #### 7 600, 28908, 6517, 32076, 1759 #### [facility] [place] [address] Archivist Military History: George Coello MD CO2 [Moles/Vol] 32 mmol/L Normal 20-32 [facility] Comment on above: Performed By: #### 7 600, 48376, 6517, 72274, 1759 #### [facility] [place] [address] Archivist Military History: George Coello MD Creatinine [Mass/Vol] 0.69 mg/dL Normal 0.50-1.[address] [facility] Comment on above: Performed By: #### 7 600, 78950, 6517, 08459, 1759 #### [facility] [place] [address] Archivist Military History: George Coello MD ELECTROLYTE BALANCE 7 mmol/L (calc) Normal 7-17 [facility] Comment on above: Performed By: #### 7 600, 83324, 6517, 95120, 1759 #### [facility] [place] [address] Archivist Military History: George Coello MD GFR/1.73 sq M.predicted among non-blacks MDRD (S/P/Bld) [Vol rate/Area] 94 mL/min/{1.73_m2} Normal > OR = 60 [facility] Comment on above: Performed By: #### 7 600, 24488, 6517, 80863, 1759 #### [facility] of [address], [address] [place] [address] Archivist Military History: George Coello MD Glucose [Mass/Vol] 102 mg/dL High 65-99 [facility] Comment on above: Result Comment: Fasting reference interval For someone without known diabetes, a glucose value between 100 and 125 mg/dL is consistent with prediabetes and should be confirmed with a follow-up test. Performed By: #### 7 600, 45241, 6517, 55059, 1759 #### [facility] of [address], [address] [place] [address] Archivist Military History: George Coello MD Potassium [Moles/Vol] 4.1 mmol/L Normal 3.5-5.[address] [facility] Comment on above: Performed By: #### 7 600, 28735, 6517, 02231, 1759 #### [facility] of [address], [address] [place] [address] Archivist Military History: George Coello MD Protein [Mass/Vol] 5.8 g/dL Low 6.1-8.1 [facility] Comment on above: Performed By: #### 7 600, 27634, 6517, 25794, 1759 #### [facility] of [address], [address] [place] [address] Archivist Military History: George Coello MD Sodium [Moles/Vol] 144 mmol/L Normal 135-146 [facility] Comment on above: Performed By: #### 7 600, 64945, 6517, 15170, 1759 #### [facility] [address], [address] [place] [address] Archivist Military History: George Coello MD Urea nitrogen [Mass/Vol] 15 mg/dL Normal 7-25 [facility] Comment on above: Performed By: #### 7 600, 39314, 6517, 17612, 1759 #### [facility] of [place] [address] Archivist Military History: George Coello MD HEMOGLOBIN A1c WITH eAGon eAG (mmol/L) 6.0 mmol/L Normal [facility] Comment on above: Performed By: #### 3 6127, 33047, 1759, 61076, 7600 #### [facility] of [address], [address] [place] [address] Archivist Military History: George Coello MD HbA1c (Bld) [Mass fraction] 5.4 % Normal <5.7 [facility] Comment on above: Result Comment: For the purpose of screening for the presence of diabetes: <5.7% Consistent with the absence of diabetes 5.7-6.4% Consistent with increased risk for diabetes (prediabetes) > or =6.5% Consistent with diabetes This assay result is consistent with a decreased risk of diabetes. Currently, no consensus exists regarding use of hemoglobin A1c for diagnosis of diabetes in children. According to [place] Diabetes Association (ADA) guidelines, hemoglobin A1c <7.0% represents optimal control in non- diabetic patients. Different metrics may apply to specific patient populations. Standards of Medical Care in Diabetes(ADA). Performed By: #### 3 6127, 70156, 1759, 90130, 7600 #### [facility] [address], [address] [place] [address] Archivist Military History: George Coello MD Magnesium [Mass/Vol] 108 mg/dL Normal [facility] Comment on above: Performed By: #### 3 6127, 73246, 1759, 09506, 7600 #### [facility] [address], [address] [place] [address] Archivist Military History: George Coello MD LIPID PANEL, [place] [address] Cholesterol [Mass/Vol] 152 mg/dL Normal <200 [facility] Comment on above: Order Comment: FASTI NG:YES FASTING: YES Performed By: #### 7 600, 60603, 6517, 91102, 1759 #### [facility] [address], [address] [place] [address] Archivist Military History: George Coello MD Cholesterol in HDL [Mass/Vol] 49 mg/dL Low > OR = 50 [facility] Comment on above: Order Comment: FASTI NG:YES FASTING: YES Performed By: #### 7 600, 01307, 6517, 18113, 1759 #### [facility] [place] [address] Archivist Military History: George Coello MD Cholesterol in LDL [Mass/Vol] 81 mg/dL Normal [facility] Comment on above: Order Comment: FASTI NG:YES FASTING: YES Result Comment: Refe rence range: <100 Desirable range <100 mg/dL for primary prevention; <70 mg/dL for patients with CHD or diabetic patients with > or = 2 CHD risk factors. LDL-C is now calculated using the Patito calculation, which is a validated novel method providing better accuracy than the Friedewald equation in the estimation of LDL-C. Luciano DAVIS et al. ISABEL. 2013;310(19): 4671-6207 (http://education.FasterPants.Slanissue/faq/EGG797) Performed By: #### 7 600, 37262, 6517, 70766, 1759 #### [facility] [address], [address] [place] [address] Archivist Military History: George Coello MD Cholesterol.total/Elsie sterol in HDL [Mass ratio] 3.1 {ratio} Normal <5.0 [facility] Comment on above: Order Comment: FASTI NG:YES FASTING: YES Performed By: #### 7 600, 87633, 6517, 35352, 1759 #### [facility] [address], [address] [place] [address] Archivist Military History: George Coello MD NON HDL CHOLESTEROL 103 mg/dL (calc) Normal <130 [facility] Comment on above: Order Comment: FASTI NG:YES FASTING: YES Result Comment: For patients with diabetes plus 1 major ASCVD risk factor, treating to a non-HDL-C goal of <100 mg/dL (LDL-C of <70 mg/dL) is considered a therapeutic option. Performed By: #### 7 600, 83638, 6517, 76683, 1759 #### [facility] [address], [address] [place] [address] Archivist Military History: George Coello MD Triglyceride [Mass/Vol] 123 mg/dL Normal <150 [facility] Comment on above: Order Comment: FASTI NG:YES FASTING: YES Performed By: #### 7 600, 74509, 6517, 09388, 1759 #### [facility] [address], [address] [place] [address] Archivist Military History: George Coello MD CBC (INCLUDES DIFF/PLT)on Basophils (Bld) [#/Vol] 0.03 10*3/uL Normal 0-200 [facility] Comment on above: Performed By: #### 1 0231, 6399 #### [facility] of [place] [address] Archivist Military History: George Coello MD Basophils/100 WBC (Bld) 0.4 % Normal [facility] Comment on above: Performed By: #### 1 0231, 6399 #### [facility] of [place] [address] Archivist Military History: George Coello MD Eosinophils (Bld) [#/Vol] 0.192 10*3/uL Normal 15-500 [facility] Comment on above: Performed By: #### 1 023, 6399 #### [facility] of [place] [address] Archivist Military History: George Coello MD Eosinophils/100 WBC (Bld) 2.6 % Normal [facility] Comment on above: Performed By: #### 1 023, 6399 #### [facility] [place] [address] Archivist Military History: George Coello MD Erythrocyte distribution width (RBC) [Ratio] 13.1 % Normal 11.0-15.0 [facility] Comment on above: Performed By: #### 1 0231, 6399 #### [facility] of [place] [address] Archivist Military History: George Coello MD Hematocrit (Bld) [Volume fraction] 44.0 % Normal 35.0-45.0 [facility] Comment on above: Performed By: #### 1 0231, 6399 #### [facility] [place] [address] Archivist Military History: George Coello MD Hemoglobin (Bld) [Mass/Vol] 14.4 g/dL Normal 11.7-15.5 [facility] Comment on above: Performed By: #### 1 0231, 6399 #### [facility] of [address], [address] [place] [address] Archivist Military History: George Coello MD Lymphocytes (Bld) [#/Vol] 2.398 10*3/uL Normal 850-3900 [facility] Comment on above: Performed By: #### 1 230, 6399 #### [facility] of [address], [address] [place] [address] Archivist Military History: George Coello MD Lymphocytes/100 WBC (Bld) 32.4 % Normal [facility] Comment on above: Performed By: #### 1 023, 6399 #### [facility] of [address], [address] [place] [address] Archivist Military History: George Coello MD MCH (RBC) [Entitic mass] 32.4 pg Normal 27.0-33.0 [facility] Comment on above: Performed By: #### 1 230, 6399 #### [facility] of [address], [address] [place] [address] Archivist Military History: George Coello MD MCHC (RBC) [Mass/Vol] 32.7 g/dL Normal 32.0-36.[address] [facility] Comment on above: Result Comment: For adults, a slight decrease in the calculated MCHC value (in the range of 30 to 32 g/dL) is most likely not clinically significant; however, it should be interpreted with caution in correlation with other red cell parameters and the patient's clinical condition. Performed By: #### 1 023, 6399 #### [facility] of [address], [address] [place] [address] Archivist Military History: George Coello MD MCV (RBC) [Entitic vol] 99.1 fL Normal 80.0-100.0 [facility] Comment on above: Performed By: #### 1 023, 6399 #### [facility] of [address], [address] [place] [address] Archivist Military History: George Coello MD Monocytes (Bld) [#/Vol] 0.57 10*3/uL Normal 200-950 [facility] Comment on above: Performed By: #### 1 0231, 6399 #### [facility] of [place] [address] Archivist Military History: George Coello MD Monocytes/100 WBC (Bld) 7.7 % Normal [facility] Comment on above: Performed By: #### 1 0231, 6399 #### [facility] [place] [address] Archivist Military History: George Coello MD Neutrophils (Bld) [#/Vol] 4.211 10*3/uL Normal 5153-0042 [facility] Comment on above: Performed By: #### 1 0231, 6399 #### [facility] [place] [address] Archivist Military History: George Coello MD Neutrophils/100 WBC (Bld) 56.9 % Normal [facility] Comment on above: Performed By: #### 1 0231, 6399 #### [facility] [place] [address] Archivist Military History: George Coello MD Platelet mean volume (Bld) [Entitic vol] 11.1 fL Normal 7.5-12.5 [facility] Comment on above: Performed By: #### 1 023, 6399 #### [facility] [place] [address] Archivist Military History: George Coello MD Platelets (Bld) [#/Vol] 292 10*3/uL Normal 140-400 [facility] Comment on above: Performed By: #### 1 0231, 6399 #### [facility] [place] [address] Archivist Military History: George Coello MD RBC (Bld) [#/Vol] 4.44 10*6/uL Normal 3.80-5.10 [facility] Comment on above: Performed By: #### 1 0231, 6399 #### [facility] of [address], [address] [place] [address] Archivist Military History: George Coello MD WBC (Bld) [#/Vol] 7.4 10*3/uL Normal 3.8-10.8 [facility] Comment on above: Performed By: #### 1 0231, 6399 #### [facility] of [address], [address] [place] [address] Archivist Military History: George Coello MD [facility] METABOLIC PANE [facility] 05-13-2025 Albumin [Mass/Vol] 4.3 g/dL Normal 3.6-5.1 [facility] Comment on above: Performed By: #### 1 0231, 6399 #### [facility] of [address], [address] [place] [address] Archivist Military History: George Coello MD Albumin/Globulin [Mass ratio] 2.5 {ratio} Normal 1.0-2.5 [facility] Comment on above: Performed By: #### 1 0231, 6399 #### [facility] of [address], [address] [place] [address] Archivist Military History: George Coello MD ALP [Catalytic activity/Vol] 48 U/L Normal 37-153 [facility] Comment on above: Performed By: #### 1 0231, 6399 #### [facility] of [address], [address] [place] [address] Archivist Military History: George Coello MD ALT [Catalytic activity/Vol] 13 U/L Normal 6-29 [facility] Comment on above: Performed By: #### 1 0231, 6399 #### [facility] of [address], [address] [place] [address] Archivist Military History: George Coello MD AST [Catalytic activity/Vol] 16 U/L Normal 10-35 [facility] Comment on above: Performed By: #### 1 0231, 6399 #### [facility] of [address], [address] [place] [address] Archivist Military History: George Coello MD Bilirubin [Mass/Vol] 0.5 mg/dL Normal 0.2-1.2 [facility] Comment on above: Performed By: #### 1 0231, 6399 #### [facility] [place] [address] Archivist Military History: George Coello MD BUN/CREATININE RATIO SEE NOTE: Normal 6-22 [facility] Comment on above: Result Comment: Not Reported: BUN and Creatinine are within reference range. Performed By: #### 1 0231, 6399 #### [facility] [address], [address] [place] [address] Archivist Military History: George Coello MD Calcium [Mass/Vol] 9.5 mg/dL Normal 8.6-10.4 [facility] Comment on above: Performed By: #### 1 0231, 6399 #### [facility] [place] [address] Archivist Military History: George Coello MD Chloride [Moles/Vol] 106 mmol/L Normal 98-110 [facility] Comment on above: Performed By: #### 1 0231, 6399 #### [facility] [place] [address] Archivist Military History: George Coello MD CO2 [Moles/Vol] 29 mmol/L Normal 20-32 [facility] Comment on above: Performed By: #### 1 0231, 6399 #### [facility] [place] [address] Archivist Military History: George Coello MD Creatinine [Mass/Vol] 0.71 mg/dL Normal 0.50-1.[address] [facility] Comment on above: Performed By: #### 1 0231, 6399 #### [facility] [place] [address] Archivist Military History: George Coello MD GFR/1.73 sq M.predicted among non-blacks MDRD (S/P/Bld) [Vol rate/Area] 93 mL/min/{1.73_m2} Normal > OR = 60 [facility] Comment on above: Performed By: #### 1 0231, 6399 #### [facility] of [place] [address] Archivist Military History: George Coello MD Globulin (S) [Mass/Vol] 1.7 g/dL Low 1.9-3.7 [facility] Comment on above: Performed By: #### 1 0231, 6399 #### [facility] of [address], [address] [place] [address] Archivist Military History: George Coello MD Glucose [Mass/Vol] 86 mg/dL Normal 65-99 [facility] Comment on above: Result Comment: Fasting reference interval Performed By: #### 1 0231, 6399 #### [facility] of [place] [address] Archivist Military History: George Coello MD Potassium [Moles/Vol] 4.6 mmol/L Normal 3.5-5.[address] [facility] Comment on above: Performed By: #### 1 0231, 6399 #### [facility] of [place] [address] Archivist Military History: George Coello MD Protein [Mass/Vol] 6.0 g/dL Low 6.1-8.1 [facility] Comment on above: Performed By: #### 1 0231, 6399 #### [facility] of [place] [address] Archivist Military History: George Coello MD Sodium [Moles/Vol] 143 mmol/L Normal 135-146 [facility] Comment on above: Performed By: #### 1 0231, 6399 #### [facility] of [place] [address] Archivist Military History: George Coello MD Urea nitrogen [Mass/Vol] 14 mg/dL Normal 7-25 [facility] Comment on above: Performed By: #### 1 0231, 6399 #### [facility] of [address] [place] [address] Archivist Military History: George Coello MD CBC (INCLUDES DIFF/PLT)on Basophils (Bld) [#/Vol] 0.036 10*3/uL Normal 0-200 [facility] Comment on above: Performed By: #### 3 6127, 19290, 1759, 45289, 7600 #### [facility] of [address], [address] [place] [address] Archivist Military History: George Coello MD Basophils/100 WBC (Bld) 0.4 % Normal [facility] Comment on above: Performed By: #### 3 6127, 35840, 1759, 08374, 7600 #### [facility] of [place] [address] Archivist Military History: George Coello MD Eosinophils (Bld) [#/Vol] 0.146 10*3/uL Normal 15-500 [facility] Comment on above: Performed By: #### 3 6127, 67739, 1759, 54531, 7600 #### [facility] of [address], [address] [place] [address] Archivist Military History: George Coello MD Eosinophils/100 WBC (Bld) 1.6 % Normal [facility] Comment on above: Performed By: #### 3 6127, 80161, 1759, 76830, 7600 #### [facility] of [place] [address] Archivist Military History: George Coello MD Erythrocyte distribution width (RBC) [Ratio] 13.3 % Normal 11.0-15.0 [facility] Comment on above: Performed By: #### 3 6127, 89664, 1759, 91134, 7600 #### [facility] of [place] [address] Archivist Military History: George Coello MD Hematocrit (Bld) [Volume fraction] 44.9 % Normal 35.0-45.0 [facility] Comment on above: Performed By: #### 3 61, 61269, 175, 23772, 7600 #### [facility] [place] [address] Archivist Military History: George Coello MD Hemoglobin (Bld) [Mass/Vol] 14.2 g/dL Normal 11.7-15.5 [facility] Comment on above: Performed By: #### 3 61, 79465, 175, 02121, 7600 #### [facility] of [place] [address] Archivist Military History: George Coello MD Lymphocytes (Bld) [#/Vol] 2.557 10*3/uL Normal 850-3900 [facility] Comment on above: Performed By: #### 3 61, 47160, 175, 93689, 7600 #### [facility] of [place] [address] Archivist Military History: George Coello MD Lymphocytes/100 WBC (Bld) 28.1 % Normal [facility] Comment on above: Performed By: #### 3 61, 85214, 175, 98286, 7600 #### [facility] of [place] [address] Archivist Military History: George Coello MD MCH (RBC) [Entitic mass] 31.3 pg Normal 27.0-33.0 [facility] Comment on above: Performed By: #### 3 61, 08110, 175, 14669, 7600 #### [facility] of [place] [address] Archivist Military History: George Coello MD MCHC (RBC) [Mass/Vol] 31.6 g/dL Low 32.0-36.[address] [facility] Comment on above: Result Comment: For adults, a slight decrease in the calculated MCHC value (in the range of 30 to 32 g/dL) is most likely not clinically significant; however, it should be interpreted with caution in correlation with other red cell parameters and the patient's clinical condition. Performed By: #### 3 61, 92782, 175, 51199, 7600 #### [facility] of [place] [address] Archivist Military History: George Coello MD MCV (RBC) [Entitic vol] 98.9 fL Normal 80.0-100.0 [facility] Comment on above: Performed By: #### 3 6127, 82816, 175, 25328, 7600 #### [facility] of [place] [address] Archivist Military History: George Coello MD Monocytes (Bld) [#/Vol] 0.655 10*3/uL Normal 200-950 [facility] Comment on above: Performed By: #### 3 6127, 96257, 175, 61954, 7600 #### [facility] of [place] [address] Archivist Military History: George Coello MD Monocytes/100 WBC (Bld) 7.2 % Normal [facility] Comment on above: Performed By: #### 3 6127, 49834, 175, 45579, 7600 #### [facility] of [place] [address] Archivist Military History: George Coello MD Neutrophils (Bld) [#/Vol] 5.706 10*3/uL Normal 6054-5699 [facility] Comment on above: Performed By: #### 3 6127, 55954, 175, 53436, 7600 #### [facility] of [place] [address] Archivist Military History: George Coello MD Neutrophils/100 WBC (Bld) 62.7 % Normal [facility] Comment on above: Performed By: #### 3 6127, 53737, 175, 91049, 7600 #### [facility] of [place] [address] Archivist Military History: George Coello MD Platelet mean volume (Bld) [Entitic vol] 10.6 fL Normal 7.5-12.5 [facility] Comment on above: Performed By: #### 3 6127, 88855, 1759, 29267, 7600 #### [facility] of [place] [address] Archivist Military History: George Coello MD Platelets (Bld) [#/Vol] 287 10*3/uL Normal 140-400 [facility] Comment on above: Performed By: #### 3 6127, 93893, 1759, 76386, 7600 #### [facility] of [address], [address] [place] [address] Archivist Military History: George Coello MD RBC (Bld) [#/Vol] 4.54 10*6/uL Normal 3.80-5.10 [facility] Comment on above: Performed By: #### 3 6127, 15236, 1759, 73625, 7600 #### [facility] of [place] [address] Archivist Military History: George Coello MD WBC (Bld) [#/Vol] 9.1 10*3/uL Normal 3.8-10.8 [facility] Comment on above: Performed By: #### 3 6127, 04003, 175, 13308, 7600 #### [facility] [place] [address] Archivist Military History: George Coello MD [facility] 02-19-2025 Albumin [Mass/Vol] 4.2 g/dL Normal 3.6-5.1 [facility] Comment on above: Performed By: #### 3 6127, 28786, 1759, 85878, 7600 #### [facility] of [place] [address] Archivist Military History: George Coello MD Albumin/Globulin [Mass ratio] 2.1 {ratio} Normal 1.0-2.5 [facility] Comment on above: Performed By: #### 3 6127, 86904, 1759, 02444, 7600 #### [facility] of [address], [address] [place] [address] Archivist Military History: George Coello MD ALP [Catalytic activity/Vol] 60 U/L Normal 37-153 [facility] Comment on above: Performed By: #### 3 6127, 28757, 175, 24012, 7600 #### [facility] of [address], [address] [place] [address] Archivist Military History: George Coello MD ALT [Catalytic activity/Vol] 15 U/L Normal 6-29 [facility] Comment on above: Performed By: #### 3 6127, 70311, 175, 46578, 7600 #### [facility] of [address], [address] [place] [address] Archivist Military History: George Coello MD AST [Catalytic activity/Vol] 17 U/L Normal 10-35 [facility] Comment on above: Performed By: #### 3 6127, 36819, 175, 93363, 7600 #### [facility] of [address], [address] [place] [address] Archivist Military History: George Coello MD Bilirubin [Mass/Vol] 0.7 mg/dL Normal 0.2-1.2 [facility] Comment on above: Performed By: #### 3 6127, 39942, 175, 84607, 7600 #### [facility] of [place] [address] Archivist Military History: George Coello MD BUN/CREATININE RATIO SEE NOTE: Normal 6-22 [facility] Comment on above: Result Comment: Not Reported: BUN and Creatinine are within reference range. Performed By: #### 3 6127, 91789, 175, 21254, 7600 #### [facility] of [address], [address] [place] [address] Archivist Military History: George Coello MD Calcium [Mass/Vol] 9.8 mg/dL Normal 8.6-10.4 [facility] Comment on above: Performed By: #### 3 6127, 51769, 1759, 67749, 7600 #### [facility] of [address], [address] [place] [address] Archivist Military History: George Coello MD Chloride [Moles/Vol] 105 mmol/L Normal 98-110 [facility] Comment on above: Performed By: #### 3 61, 41908, 175, 20568, 7600 #### [facility] of [address], [address] [place] [address] Archivist Military History: George Coello MD CO2 [Moles/Vol] 31 mmol/L Normal 20-32 [facility] Comment on above: Performed By: #### 3 61, , 1758, 07598, 7600 #### [facility] of [place] [address] Archivist Military History: Geogre Coello MD Creatinine [Mass/Vol] 0.74 mg/dL Normal 0.50-1.[address] [facility] Comment on above: Performed By: #### 3 61, 16463, 175, 21719, 7600 #### [facility] of [place] [address] Archivist Military History: George Coello MD GFR/1.73 sq M.predicted among non-blacks MDRD (S/P/Bld) [Vol rate/Area] 88 mL/min/{1.73_m2} Normal > OR = 60 [facility] Comment on above: Performed By: #### 3 61, 55881, 175, 28413, 7600 #### [facility] of [address], [address] [place] [address] Archivist Military History: George Coello MD Globulin (S) [Mass/Vol] 2.0 g/dL Normal 1.9-3.7 [facility] Comment on above: Performed By: #### 3 61, 52332, 175, 78413, 7600 #### [facility] of [place] [address] Archivist Military History: George Coello MD Glucose [Mass/Vol] 76 mg/dL Normal 65-99 [facility] Comment on above: Result Comment: Fasting reference interval Performed By: #### 3 6127, 08292, 1759, 69804, 7600 #### [facility] [address], [address] [place] [address] Archivist Military History: George Coello MD Potassium [Moles/Vol] 4.3 mmol/L Normal 3.5-5.[address] [facility] Comment on above: Performed By: #### 3 61, 58982, 175, 66103, 7600 #### [facility] [place] [address] Archivist Military History: George Coello MD Protein [Mass/Vol] 6.2 g/dL Normal 6.1-8.1 [facility] Comment on above: Performed By: #### 3 61, 69405, 175, 32688, 7600 #### [facility] [address], [address] [place] [address] Archivist Military History: George Coello MD Sodium [Moles/Vol] 143 mmol/L Normal 135-146 [facility] Comment on above: Performed By: #### 3 61, 09606, 1759, 31018, 7600 #### [facility] [place] [address] Archivist Military History: George Coello MD Urea nitrogen [Mass/Vol] 15 mg/dL Normal 7-25 [facility] Comment on above: Performed By: #### 3 6127, 78446, 1759, 16540, 7600 #### [facility] of [place] [address] Archivist Military History: George Coello MD BI MAMMO BILATERAL SCREENING TOMOSYNTHESISon 12-14-2024 BI MAMMO BILATERAL SCREENING TOMOSYNTHESIS Interpreted By: Miguelangel Rivas, STUDY: BI MAMMO BILATERAL SCREENING TOMOSYNTHESIS; 12/14/2024 3:07 pm ACCESSION NUMBER(S): [id number] ORDERING CLINICIAN: ARNOLD HERNANDES INDICATION: Screening. COMPARISON: Digital mammograms dated 09/12/2023 FINDINGS: CC and MLO 2D digital mammograms and digital breast tomosynthesis images were obtained of the bilateral breasts. 3-D volume images were reconstructed in 4 views at an independent workstation as 1 mm slices through the breasts in both the CC and MLO projections. Density: The breasts are almost entirely fatty. No discrete mass or focal asymmetry is identified. No suspicious microcalcifications or foci of architectural distortion are seen. There has been no significant change. This study was interpreted with CAD. IMPRESSION: No mammographic evidence of malignancy. BI-RADS CATEGORY: BI-RADS Category: 1 Negative. Recommendation: Annual Screening. Recommended Date: 1 Year. Laterality: Bilateral. MACRO: None Signed by: Miguelangel Rivas 12/15/2024 10:05 AM Dictation workstation: [id number] [facility] DRUG MONITOR, BENZO, QN, URI NEon 12-13-2024 Alphahydroxyalprazolam Negative Normal <25 [facility] Comment on above: Performed By: #### 3 6127, 37869, 1759, 75592, 7600 #### [facility] [place] [address] [place] [address] Archivist Military History: George Coello MD Alphahydroxymidazolam Negative Normal <[address] [facility] Comment on above: Performed By: #### 3 6127, 78844, 1759, 43826, 7600 #### [facility] [place] [address] [place] [address] Archivist Military History: George Coello MD Alphahydroxytriazolam Negative Normal <[address] [facility] Comment on above: Performed By: #### 3 6127, 41005, 1759, 52648, 7600 #### [facility] [place] [address] [place] [address] Archivist Military History: George Coello MD Aminoclonazepam Negative Normal <25 [facility] Comment on above: Performed By: #### 3 6127, 21599, 1759, 83292, 7600 #### [facility] of [address], [address] [place] [address] Archivist Military History: George Coello MD Benzodiazepines Comments Normal [facility] Comment on above: Result Comment: See LDT Notes Performed By: #### 3 6127, 66354, 1759, 72406, 7600 #### [facility] of [place] [address] Archivist Military History: George Coello MD Hydroxyethylflurazepam Negative Normal <50 [facility] Comment on above: Performed By: #### 3 6127, 88862, 1759, 70981, 7600 #### [facility] of [place] [address] Archivist Military History: George Coello MD Lorazepam Negative Normal <50 [facility] Comment on above: Performed By: #### 3 6127, 48881, 175, 47229, 7600 #### [facility] of [place] [address] Archivist Military History: George Coello MD Nordiazepam Negative Normal <50 [facility] Comment on above: Performed By: #### 3 6127, 72273, 1759, 44005, 7600 #### [facility] of [place] [address] Archivist Military History: George Coello MD Oxazepam Negative Normal <50 [facility] Comment on above: Performed By: #### 3 6127, 24243, 1759, 87063, 7600 #### [facility] of [place] [address] Archivist Military History: George Coello MD Temazepam Negative Normal <50 [facility] Comment on above: Performed By: #### 3 6127, 91175, 1759, 96052, 7600 #### [facility] of [place] [address] Archivist Military History: George Coello MD DRUG MONITOR, COCAINE METAB, W/CONF, URINEon 12-13-2024 Cocaine Metabolite Negative Normal <150 [facility] Comment on above: Performed By: #### 3 6127, 47485, 1759, 60972, 7600 #### [facility] of [place] [address] Archivist Military History: George Coello MD DRUG MONITOR, FENTANYL, QN, URINEon 12-13-2024 Fentanyl Negative Normal <0.5 [facility] Comment on above: Performed By: #### 3 6127, 98664, 1759, 07420, 7600 #### [facility] of [place] [address] Archivist Military History: George Coello MD Fentanyl Comments Normal [facility] Comment on above: Result Comment: See LDT Notes Performed By: #### 3 6127, 01039, 1759, 24665, 7600 #### [facility] of [place] [address] Archivist Military History: George Coello MD Norfentanyl Negative Normal <0.5 [facility] Comment on above: Performed By: #### 3 6127, 71186, 1759, 89263, 7600 #### [facility] [place] [address] Archivist Military History: George Coello MD DRUG MONITOR, HEROIN METAB, QN, URINEon 12-13-2024 6 Acetylmorphine Negative Normal <10 [facility] Comment on above: Performed By: #### 3 6127, 02919, 1759, 18545, 7600 #### [facility] of [place] [address] Archivist Military History: George Coello MD Heroin Metab Comments Normal [facility] Comment on above: Result Comment: See LDT Notes Performed By: #### 3 6127, 31331, 1759, 83436, 7600 #### [facility] of [place] [address] Archivist Military History: George Coello MD DRUG MONITOR, MARIJUANA META B, W/CONF, URINEon 12-13-2024 Marijuana Metabolite Negative Normal <20 [facility] Comment on above: Performed By: #### 3 6127, 11222, 1759, 42865, 7600 #### [facility] of [address], [address] [place] [address] Archivist Military History: George Coello MD DRUG MONITOR, METHADONE META B, QN, URINEon 12-13-2024 EDDP Negative Normal <100 [facility] Comment on above: Performed By: #### 3 6127, 06747, 1759, 43097, 7600 #### [facility] of [address], [address] [place] [address] Archivist Military History: George Coello MD Methadone Negative Normal <100 [facility] Comment on above: Performed By: #### 3 6127, 62716, 1759, 37433, 7600 #### [facility] of [address], [address] [place] [address] Archivist Military History: George Coello MD Methadone Comments Normal [facility] Comment on above: Result Comment: See LDT Notes Performed By: #### 3 6127, 88223, 1759, 79602, 7600 #### [facility] of [place] [address] Archivist Military History: George Coello MD DRUG MONITOR, OPIATES EXPAND ED, QN, URINEon 12-13-2024 Codeine Negative Normal <50 [facility] Comment on above: Performed By: #### 3 6127, 60223, 1759, 77238, 7600 #### [facility] of [address], [address] [place] [address] Archivist Military History: George Coello MD Hydrocodone Negative Normal <50 [facility] Comment on above: Performed By: #### 3 6127, 74709, 1759, 45224, 7600 #### [facility] of [address], [address] [place] [address] Archivist Military History: George Coello MD Hydromorphone Negative Normal <50 [facility] Comment on above: Performed By: #### 3 6127, 68059, 1759, 57629, 7600 #### [facility] of [place] [address] [place] , [address] [place] [address] Archivist Military History: George Coello MD Morphine Negative Normal <50 [facility] Comment on above: Performed By: #### 3 6127, 06195, 1759, 02221, 7600 #### [facility] of [place] [address] [place] , [address] [place] [address] Archivist Military History: George Coello MD Norhydrocodone Negative Normal <50 [facility] Comment on above: Performed By: #### 3 6127, 46851, 1759, 45048, 7600 #### [facility] of [place] [address] [place] , [address] [place] [address] Archivist Military History: George Coello MD Noroxycodone Negative Normal <50 [facility] Comment on above: Performed By: #### 3 6127, 20738, 1759, 31276, 7600 #### [facility] of [address] , [address] [place] [address] Archivist Military History: George Coello MD Opiates Comments Normal [facility] Comment on above: Result Comment: See LDT Notes Performed By: #### 3 6127, 92819, 1759, 01543, 7600 #### [facility] of [place] [address] [place] , [address] [place] [address] Archivist Military History: George Coello MD Oxycodone Negative Normal <50 [facility] Comment on above: Performed By: #### 3 6127, 34797, 1759, 62177, 7600 #### [facility] of [place] [address] [place] , [address] [place] [address] Archivist Military History: George Coello MD Oxycodone Comments Normal [facility] Comment on above: Result Comment: See LDT Notes Performed By: #### 3 6127, 42286, 1759, 71085, 7600 #### [facility] of [place] [address] [place] , [address] [place] [address] Archivist Military History: George Coello MD Oxymorphone Negative Normal <50 [facility] Comment on above: Performed By: #### 3 6127, 26748, 1759, 75357, 7600 #### [facility] of [address], [address] [place] [address] Archivist Military History: George Coello MD DRUG MONITOR, PCP, W/CONF, U RINEon 12-13-2024 Phencyclidine Negative Normal <25 [facility] Comment on above: Performed By: #### 3 6127, 57181, 1759, 96904, 7600 #### [facility] of [address], [address] [place] [address] Archivist Military History: George Coello MD DRUG MONITOR, TRAMADOL, QN, URINEon 12-13-2024 Desmethyltramadol Negative Normal <100 [facility] Comment on above: Performed By: #### 3 6127, 02891, 1759, 95451, 7600 #### [facility] of [address], [address] [place] [address] Archivist Military History: George Coello MD Tramadol Negative Normal <100 [facility] Comment on above: Performed By: #### 3 6127, 02657, 1759, 49037, 7600 #### [facility] of [address], [address] [place] [address] Archivist Military History: George Coello MD Tramadol Comments Normal [facility] Comment on above: Result Comment: See LDT Notes Performed By: #### 3 6127, 86206, 1759, 36120, 7600 #### [facility] of [address], [address] [place] [address] Archivist Military History: George Coello MD DRUG MONITOR, ZOLPIDEM, QN, URINEon 12-13-2024 Zolpidem Negative Normal <5 [facility] Comment on above: Performed By: #### 3 6127, 18398, 1759, 51311, 7600 #### [facility] of [address], [address] [place] [address] Archivist Military History: George Coello MD Zolpidem Comments Normal [facility] Comment on above: Result Comment: See LDT Notes Performed By: #### 3 6127, 40189, 1759, 78646, 7600 #### [facility] of [address], [address] [place] [address] Archivist Military History: George Coello MD Zolpidem Metabolite Negative Normal <5 [facility] Comment on above: Performed By: #### 3 6127, 73563, 1759, 74171, 7600 #### [facility] of [address], [address] [place] [address] Archivist Military History: George Coello MD DRUG MONITOR,AMPHETAMINE, W/ CONF, URINEon 12-13-2024 Amphetamines Negative Normal <500 [facility] Comment on above: Performed By: #### 3 6127, 65513, 1759, 56481, 7600 #### [facility] of [address], [address] [place] [address] Archivist Military History: George Coello MD DRUG MONITOR,BARBITURATE, W/ CONF, URINEon 12-13-2024 Barbiturates Negative Normal <300 [facility] Comment on above: Performed By: #### 3 6127, 89382, 1759, 36935, 7600 #### [facility] of [address], [address] [place] [address] Archivist Military History: George Coello MD DRUG MONITORING TEMPLATEon 0 12-13-2024 Notes and Comments Normal [facility] Comment on above: Result Comment: This drug testing is for medical treatment only. Analysis was performed as non-forensic testing and these results should be used only by healthcare providers to render diagnosis or treatment, or to monitor progress of medical conditions. LDT Notes: Confirmation tests were developed and their analytical performance characteristics have been determined by [employer]. It has not been cleared or approved by the FDA. This assay has been validated pursuant to the CLIA regulations and is used for clinical purposes. Healthcare Providers needing Interpretation assistance, please contact us at [phone] ( ) M-F, 8am to 10pm EST Performed By: #### 3 61, 73636, 175, 87438, 7600 #### [facility] of [address], [address] [place] [address] Archivist Military History: George Coello MD SPECIMEN VALIDITY TEST PANEL on 12-13-2024 Creatinine [Mass/Vol] 105.2 mg/dL Normal > or = 20.0 [facility] Comment on above: Performed By: #### 3 61, 21019, 175, 47191, 7600 #### [facility] of [place] [address] Archivist Military History: George Coello MD Oxidant Negative Normal <200 [facility] Comment on above: Performed By: #### 3 61, 37078, 1758, 77951, 7600 #### [facility] [place] [address] Archivist Military History: George Coello MD pH (Bld) 5.2 [pH] Normal 4.5-9.0 [facility] Comment on above: Performed By: #### 3 61, 97106, 175, 03876, 7600 #### [facility] [place] [address] Archivist Military History: George Coello MD CBC (H/H, RBC, INDICES, WBC, PLT)on 12-08-2024 Erythrocyte distribution width (RBC) [Ratio] 13.2 % Normal 11.0-15.0 [facility] Comment on above: Performed By: #### 3 61, 99318, 175, 10329, 7600 #### [facility] of [place] [address] Archivist Military History: George Coello MD Hematocrit (Bld) [Volume fraction] 42.3 % Normal 35.0-45.0 [facility] Comment on above: Performed By: #### 3 61, 62382, 175, 10537, 7600 #### [facility] [place] [address] Archivist Military History: George Coello MD Hemoglobin (Bld) [Mass/Vol] 13.9 g/dL Normal 11.7-15.5 [facility] Comment on above: Performed By: #### 3 6126, 46600, 175, 58989, 7600 #### [facility] [place] [address] Archivist Military History: George Coello MD MCH (RBC) [Entitic mass] 31.7 pg Normal 27.0-33.0 [facility] Comment on above: Performed By: #### 3 61, 62553, 175, 64014, 7600 #### [facility] [place] [address] Archivist Military History: George Coello MD MCHC (RBC) [Mass/Vol] 32.9 g/dL Normal 32.0-36.[address] [facility] Comment on above: Result Comment: For adults, a slight decrease in the calculated MCHC value (in the range of 30 to 32 g/dL) is most likely not clinically significant; however, it should be interpreted with caution in correlation with other red cell parameters and the patient's clinical condition. Performed By: #### 3 61, 81593, 175, 48693, 7600 #### [facility] [place] [address] Archivist Military History: George Coello MD MCV (RBC) [Entitic vol] 96.6 fL Normal 80.0-100.0 [facility] Comment on above: Performed By: #### 3 61, 90438, 175, 61682, 7600 #### [facility] [place] [address] Archivist Military History: George Coello MD Platelet mean volume (Bld) [Entitic vol] 10.2 fL Normal 7.5-12.5 [facility] Comment on above: Performed By: #### 3 6126, 70208, 1759, 51611, 7600 #### [facility] of [place] [address] Archivist Military History: George Coello MD Platelets (Bld) [#/Vol] 254 10*3/uL Normal 140-400 [facility] Comment on above: Performed By: #### 3 6127, 98864, 1759, 76174, 7600 #### [facility] of [place] [address] Archivist Military History: George Coello MD RBC (Bld) [#/Vol] 4.38 10*6/uL Normal 3.80-5.10 [facility] Comment on above: Performed By: #### 3 6127, 99730, 1759, 58165, 7600 #### [facility] of [place] [address] Archivist Military History: George Coello MD WBC (Bld) [#/Vol] 8.3 10*3/uL Normal 3.8-10.8 [facility] Comment on above: Performed By: #### 3 6127, 23008, 1759, 95377, 7600 #### [facility] of [place] [address] Archivist Military History: George Coello MD COMPREHENSIVE METABOLIC PANE L W/ANION GAPon 12-08-2024 Albumin [Mass/Vol] 4.0 g/dL Normal 3.6-5.1 [facility] Comment on above: Performed By: #### 3 6127, 45749, 1759, 12846, 7600 #### [facility] of [place] [address] Archivist Military History: George Coello MD ALP [Catalytic activity/Vol] 53 U/L Normal 37-153 [facility] Comment on above: Performed By: #### 3 6127, 76886, 1759, 94481, 7600 #### [facility] of [place] [address] Archivist Military History: George Coello MD ALT [Catalytic activity/Vol] 12 U/L Normal 6-29 [facility] Comment on above: Performed By: #### 3 6127, 88939, 175, 14693, 7600 #### [facility] of [address], [address] [place] [address] Archivist Military History: George Coello MD AST [Catalytic activity/Vol] 12 U/L Normal 10-35 [facility] Comment on above: Performed By: #### 3 6127, 27202, 175, 45055, 7600 #### [facility] of [address], [address] [place] [address] Archivist Military History: George Coello MD Bilirubin [Mass/Vol] 0.6 mg/dL Normal 0.2-1.2 [facility] Comment on above: Performed By: #### 3 61, , 1758, , 7600 #### [facility] of [place] [address] Archivist Military History: George Coello MD Calcium [Mass/Vol] 9.4 mg/dL Normal 8.6-10.4 [facility] Comment on above: Performed By: #### 3 61, 27946, 175, 61862, 7600 #### [facility] of [place] [address] Archivist Military History: George Coello MD Chloride [Moles/Vol] 105 mmol/L Normal 98-110 [facility] Comment on above: Performed By: #### 3 61, 01130, 175, 07444, 7600 #### [facility] of [place] [address] Archivist Military History: George Coello MD CO2 [Moles/Vol] 35 mmol/L High 20-32 [facility] Comment on above: Performed By: #### 3 61, 60347, 175, 58948, 7600 #### [facility] of [address], [address] [place] [address] Archivist Military History: George Coello MD Creatinine [Mass/Vol] 0.65 mg/dL Normal 0.50-1.[address] [facility] Comment on above: Performed By: #### 3 61, 36609, 175, 97962, 7600 #### [facility] [address], [address] [place] [address] Archivist Military History: George Coello MD ELECTROLYTE BALANCE 4 mmol/L (calc) Low 7-17 [facility] Comment on above: Performed By: #### 3 61, 78234, 175, 41734, 7600 #### [facility] [address], [address] [place] [address] Archivist Military History: George Coello MD GFR/1.73 sq M.predicted among non-blacks MDRD (S/P/Bld) [Vol rate/Area] 96 mL/min/{1.73_m2} Normal > OR = 60 [facility] Comment on above: Performed By: #### 3 61, 11099, 175, 38618, 7600 #### [facility] [address], [address] [place] [address] Archivist Military History: George Coello MD Glucose [Mass/Vol] 113 mg/dL High 65-99 [facility] Comment on above: Result Comment: Fasting reference interval For someone without known diabetes, a glucose value between 100 and 125 mg/dL is consistent with prediabetes and should be confirmed with a follow-up test. Performed By: #### 3 61, 56159, 175, 82867, 7600 #### [facility] [address], [address] [place] [address] Archivist Military History: George Coello MD Potassium [Moles/Vol] 4.3 mmol/L Normal 3.5-5.[address] [facility] Comment on above: Performed By: #### 3 61, 15050, 175, 58686, 7600 #### [facility] [address], [address] [place] [address] Archivist Military History: George Coello MD Protein [Mass/Vol] 5.7 g/dL Low 6.1-8.1 [facility] Comment on above: Performed By: #### 3 6127, 65120, 175, 57569, 7600 #### [facility] [place] [address] Archivist Military History: George Coello MD Sodium [Moles/Vol] 144 mmol/L Normal 135-146 [facility] Comment on above: Performed By: #### 3 6127, 77364, 175, 52172, 7600 #### [facility] [place] [address] Archivist Military History: George Coello MD Urea nitrogen [Mass/Vol] 15 mg/dL Normal 7-25 [facility] Comment on above: Performed By: #### 3 61, 89810, 175, 25034, 7600 #### [facility] [place] [address] Archivist Military History: George Coello MD HEMOGLOBIN A1c WITH eAGon eAG (mmol/L) 7.0 mmol/L Normal [facility] Comment on above: Performed By: #### 3 6127, 88244, 175, 00675, 7600 #### [facility] [place] [address] Archivist Military History: George Coello MD HbA1c (Bld) [Mass fraction] 6.0 % High <5.7 [facility] Comment on above: Result Comment: For someone without known diabetes, a hemoglobin A1c value between 5.7% and 6.4% is consistent with prediabetes and should be confirmed with a follow-up test. For someone with known diabetes, a value <7% indicates that their diabetes is well controlled. A1c targets should be individualized based on duration of diabetes, age, comorbid conditions, and other considerations. This assay result is consistent with an increased risk of diabetes. Currently, no consensus exists regarding use of hemoglobin A1c for diagnosis of diabetes for children. Performed By: #### 3 61, 92713, 1759, 79328, 7600 #### [facility] [address], [address] [place] [address] Archivist Military History: George Coello MD Magnesium [Mass/Vol] 126 mg/dL Normal [facility] Comment on above: Performed By: #### 3 6127, 31340, 1759, 23533, 7600 #### [facility] [address], [address] [place] [address] Archivist Military History: George Coello MD LIPID PANEL, [facility] 11-18 Cholesterol [Mass/Vol] 179 mg/dL Normal <200 [facility] Comment on above: Order Comment: FASTI NG:YES FASTING: YES Performed By: #### 3 6127, 82489, 175, 55180, 7600 #### [facility] [address], [address] [place] [address] Archivist Military History: George Coello MD Cholesterol in HDL [Mass/Vol] 43 mg/dL Low > OR = 50 [facility] Comment on above: Order Comment: FASTI NG:YES FASTING: YES Performed By: #### 3 6127, 71877, 1759, 35668, 7600 #### [facility] [place] [address] Archivist Military History: George Coello MD Cholesterol in LDL [Mass/Vol] 108 mg/dL High [facility] Comment on above: Order Comment: FASTI NG:YES FASTING: YES Result Comment: Refe rence range: <100 Desirable range <100 mg/dL for primary prevention; <70 mg/dL for patients with CHD or diabetic patients with > or = 2 CHD risk factors. LDL-C is now calculated using the Patito calculation, which is a validated novel method providing better accuracy than the Friedewald equation in the estimation of LDL-C. Luciano DAVIS et al. ISABEL. 2013;310(19): 2015-3408 (http://education.FasterPants.Slanissue/faq/EHR140) Performed By: #### 3 6127, 80625, 1759, 44109, 7600 #### [facility] [place] [address] Archivist Military History: George Coello MD Cholesterol.total/Elsie sterol in HDL [Mass ratio] 4.2 {ratio} Normal <5.0 [facility] Comment on above: Order Comment: FASTI NG:YES FASTING: YES Performed By: #### 3 6127, 70019, 1759, 46023, 7600 #### [facility] [place] [address] Archivist Military History: George Coello MD NON HDL CHOLESTEROL 136 mg/dL (calc) High <130 [facility] Comment on above: Order Comment: FASTI NG:YES FASTING: YES Result Comment: For patients with diabetes plus 1 major ASCVD risk factor, treating to a non-HDL-C goal of <100 mg/dL (LDL-C of <70 mg/dL) is considered a therapeutic option. Performed By: #### 3 6127, 89080, 175, 40855, 7600 #### [facility] [place] [address] Archivist Military History: George Coello MD Triglyceride [Mass/Vol] 162 mg/dL High <150 [facility] Comment on above: Order Comment: FASTI NG:YES FASTING: YES Performed By: #### 3 6127, 36842, 175, 65874, 7600 #### [facility] [place] [address] Archivist Military History: George Coello MD TSH W/REFLEX TO FT4on 2024 TSH W/REFLEX TO FT4 0.54 mIU/L Normal 0.40-4.50 [facility] Comment on above: Performed By: #### 3 6127, 91281, 175, 87258, 7600 #### [facility] [place] [address] Archivist Military History: George Coello MD CBC (INCLUDES DIFF/PLT)on Basophils (Bld) [#/Vol] 0.017 10*3/uL Normal 0-200 [facility] Comment on above: Performed By: #### 3 6127, 28394, 1759, 92006, 7600 #### [facility] of [place] [address] Archivist Military History: George Coello MD Basophils/100 WBC (Bld) 0.2 % Normal [facility] Comment on above: Performed By: #### 3 6127, 60467, 175, 39206, 7600 #### [facility] of [address], [address] [place] [address] Archivist Military History: Geroge Coello MD Eosinophils (Bld) [#/Vol] 0.108 10*3/uL Normal 15-500 [facility] Comment on above: Performed By: #### 3 61, 29084, 175, 58640, 7600 #### [facility] [place] [address] Archivist Military History: George Coello MD Eosinophils/100 WBC (Bld) 1.3 % Normal [facility] Comment on above: Performed By: #### 3 61, 36825, 175, 00670, 7600 #### [facility] [place] [address] Archivist Military History: George Coello MD Erythrocyte distribution width (RBC) [Ratio] 13.2 % Normal 11.0-15.0 [facility] Comment on above: Performed By: #### 3 61, 38390, 175, 47304, 7600 #### [facility] of [place] [address] Archivist Military History: George Coello MD Hematocrit (Bld) [Volume fraction] 42.8 % Normal 35.0-45.0 [facility] Comment on above: Performed By: #### 3 61, 12073, 175, 05240, 7600 #### [facility] [place] [address] Archivist Military History: George Coello MD Hemoglobin (Bld) [Mass/Vol] 14.2 g/dL Normal 11.7-15.5 [facility] Comment on above: Performed By: #### 3 61, 61854, 175, 64165, 7600 #### [facility] of [place] [address] Archivist Military History: George Coello MD Lymphocytes (Bld) [#/Vol] 2.307 10*3/uL Normal 850-3900 [facility] Comment on above: Performed By: #### 3 61, 61869, 175, 02781, 7600 #### [facility] of [place] [address] Archivist Military History: George Coello MD Lymphocytes/100 WBC (Bld) 27.8 % Normal [facility] Comment on above: Performed By: #### 3 61, , 1758, 22097, 7600 #### [facility] [place] [address] Archivist Military History: George Coello MD MCH (RBC) [Entitic mass] 32.1 pg Normal 27.0-33.0 [facility] Comment on above: Performed By: #### 3 61, 77844, 1758, 98735, 7600 #### [facility] [place] [address] Archivist Military History: George Coello MD MCHC (RBC) [Mass/Vol] 33.2 g/dL Normal 32.0-36.[address] [facility] Comment on above: Result Comment: For adults, a slight decrease in the calculated MCHC value (in the range of 30 to 32 g/dL) is most likely not clinically significant; however, it should be interpreted with caution in correlation with other red cell parameters and the patient's clinical condition. Performed By: #### 3 61, 97265, 175, 02836, 7600 #### [facility] [place] [address] Archivist Military History: George Coello MD MCV (RBC) [Entitic vol] 96.8 fL Normal 80.0-100.0 [facility] Comment on above: Performed By: #### 3 6127, 94733, 1759, 40225, 7600 #### [facility] of [address], [address] [place] [address] Archivist Military History: George Coello MD Monocytes (Bld) [#/Vol] 0.647 10*3/uL Normal 200-950 [facility] Comment on above: Performed By: #### 3 6127, 06067, 1759, 76891, 7600 #### [facility] of [address], [address] [place] [address] Archivist Military History: George Coello MD Monocytes/100 WBC (Bld) 7.8 % Normal [facility] Comment on above: Performed By: #### 3 6127, 85777, 175, 29770, 7600 #### [facility] of [address], [address] [place] [address] Archivist Military History: George Coello MD Neutrophils (Bld) [#/Vol] 5.221 10*3/uL Normal 0956-5013 [facility] Comment on above: Performed By: #### 3 6127, 64282, 175, 39211, 7600 #### [facility] [place] [address] Archivist Military History: George Coello MD Neutrophils/100 WBC (Bld) 62.9 % Normal [facility] Comment on above: Performed By: #### 3 6127, 29804, 1759, 72202, 7600 #### [facility] of [address], [address] [place] [address] Archivist Military History: George Coello MD Platelet mean volume (Bld) [Entitic vol] 10.8 fL Normal 7.5-12.5 [facility] Comment on above: Performed By: #### 3 6127, 77777, 1759, 36906, 7600 #### [facility] of [address], [address] [place], [place] [address] Archivist Military History: George Coello MD Platelets (Bld) [#/Vol] 265 10*3/uL Normal 140-400 [facility] Comment on above: Performed By: #### 3 6127, 97949, 1759, 89677, 7600 #### [facility] [place] [address] Archivist Military History: George Colelo MD RBC (Bld) [#/Vol] 4.42 10*6/uL Normal 3.80-5.10 [facility] Comment on above: Performed By: #### 3 6127, 10255, 1759, 55368, 7600 #### [facility] [place] [address] Archivist Military History: George Coello MD WBC (Bld) [#/Vol] 8.3 10*3/uL Normal 3.8-10.8 [facility] Comment on above: Performed By: #### 3 61, 66132, 1759, 51024, 7600 #### [facility] [place] [address] Archivist Military History: George Coello MD [facility] METABOLIC PANE [facility] 11-28-2024 Albumin [Mass/Vol] 4.3 g/dL Normal 3.6-5.1 [facility] Comment on above: Performed By: #### 3 61, 66314, 175, 56556, 7600 #### [facility] [place] [address] Archivist Military History: George Coello MD Albumin/Globulin [Mass ratio] 2.3 {ratio} Normal 1.0-2.5 [facility] Comment on above: Performed By: #### 3 6127, 68388, 1759, 60167, 7600 #### [facility] [place] [address] Archivist Military History: George Coello MD ALP [Catalytic activity/Vol] 57 U/L Normal 37-153 [facility] Comment on above: Performed By: #### 3 6127, 67483, 175, 12468, 7600 #### [facility] [place] [address] Archivist Military History: George Coello MD ALT [Catalytic activity/Vol] 16 U/L Normal 6-29 [facility] Comment on above: Performed By: #### 3 6127, 29234, 175, 03232, 7600 #### [facility] of [address], [address] [place] [address] Archivist Military History: George Coello MD AST [Catalytic activity/Vol] 17 U/L Normal 10-35 [facility] Comment on above: Performed By: #### 3 6127, 74512, 1758, , 7600 #### [facility] [place] [address] Archivist Military History: George Coello MD Bilirubin [Mass/Vol] 0.5 mg/dL Normal 0.2-1.2 [facility] Comment on above: Performed By: #### 3 6127, 83410, 1758, 12067, 7600 #### [facility] [place] [address] Archivist Military History: George Coello MD BUN/CREATININE RATIO SEE NOTE: Normal 6-22 [facility] Comment on above: Result Comment: Not Reported: BUN and Creatinine are within reference range. Performed By: #### 3 6127, 61704, 175, 43635, 7600 #### [facility] of [address], [address] [place] [address] Archivist Military History: George Coello MD Calcium [Mass/Vol] 9.6 mg/dL Normal 8.6-10.4 [facility] Comment on above: Performed By: #### 3 6127, 58623, 175, 31350, 7600 #### [facility] [place] [address] Archivist Military History: George Coello MD Chloride [Moles/Vol] 105 mmol/L Normal 98-110 [facility] Comment on above: Performed By: #### 3 6127, 15117, 175, 02335, 7600 #### [facility] [place] [address] Archivist Military History: George Coello MD CO2 [Moles/Vol] 31 mmol/L Normal 20-32 [facility] Comment on above: Performed By: #### 3 6127, 70124, 175, 38966, 7600 #### [facility] [place] [address] Archivist Military History: George Coello MD Creatinine [Mass/Vol] 0.73 mg/dL Normal 0.50-1.[address] [facility] Comment on above: Performed By: #### 3 61, 52140, 175, 55297, 7600 #### [facility] [place] [address] Archivist Military History: George Coello MD GFR/1.73 sq M.predicted among non-blacks MDRD (S/P/Bld) [Vol rate/Area] 90 mL/min/{1.73_m2} Normal > OR = 60 [facility] Comment on above: Performed By: #### 3 61, 02363, 175, 24147, 7600 #### [facility] [place] [address] Archivist Military History: George Coello MD Globulin (S) [Mass/Vol] 1.9 g/dL Normal 1.9-3.7 [facility] Comment on above: Performed By: #### 3 61, 87237, 175, 20348, 7600 #### [facility] [place] [address] Archivist Military History: George Coello MD Glucose [Mass/Vol] 79 mg/dL Normal 65-99 [facility] Comment on above: Result Comment: Fasting reference interval Performed By: #### 3 61, 91653, 175, 33300, 7600 #### [facility] of [address], [address] [place] [address] Archivist Military History: George Coello MD Potassium [Moles/Vol] 4.1 mmol/L Normal 3.5-5.[address] [facility] Comment on above: Performed By: #### 3 6127, 74826, 1759, 71918, 7600 #### [facility] of [address], [address] [place] [address] Archivist Military History: George Coello MD Protein [Mass/Vol] 6.2 g/dL Normal 6.1-8.1 [facility] Comment on above: Performed By: #### 3 6127, 02015, 1759, 21281, 7600 #### [facility] of [address], [address] [place] [address] Archivist Military History: George Coello MD Sodium [Moles/Vol] 144 mmol/L Normal 135-146 [facility] Comment on above: Performed By: #### 3 6127, 56148, 1759, 18269, 7600 #### [facility] of [address], [address] [place] [address] Archivist Military History: George Coello MD Urea nitrogen [Mass/Vol] 15 mg/dL Normal 7-25 [facility] Comment on above: Performed By: #### 3 6127, 81872, 1759, 79166, 7600 #### [facility] [place] [address] Archivist Military History: George Coello MD CBC W Auto Differential pane l (Bld)on 08-25-2024 Basophils (Bld) [#/Vol] 0.03 x10*3/uL Normal 0.00-0.10 [facility] Comment on above: Performed By: #### 5 7021-8 #### HURST MIKE ([id number]) [facility] ([facility]) [address] [place] [address] Basophils/100 WBC (Bld) 0.4 % Normal 0.0-2.0 [facility] Comment on above: Performed By: #### 5 7021-8 #### ARIS MCKEON ([id number]) [facility] ([facility]) [address] [place] [address] 37316 Eosinophils (Bld) [#/Vol] 0.19 x10*3/uL Normal 0.00-0.70 [facility] Comment on above: Performed By: #### 7021-8 #### ARIS MCKEON ([id number]) [facility] ([facility]) [address] [place] [address] 26386 Eosinophils/100 WBC (Bld) 2.4 % Normal 0.0-6.0 [facility] Comment on above: Performed By: #### 70-8 #### ARIS MCKEON ([id number]) [facility] ([facility]) [address] [place] [address] 95117 Erythrocyte distribution width (RBC) [Ratio] 13.6 % Normal 11.5-14.5 [facility] Comment on above: Performed By: #### 7021-8 #### ARIS MCKEON ([id number]) [facility] ([facility]) [address] [place] [address] 18425 Hematocrit (Bld) [Volume fraction] 41.8 % Normal 36.0-46.0 [facility] Comment on above: Performed By: #### 5 7021-8 #### ARIS MCKEON ([id number]) [facility] ([facility]) [address] [place] [address] 51900 Hemoglobin (Bld) [Mass/Vol] 13.6 g/dL Normal 12.0-16.0 [facility] Comment on above: Performed By: #### 5 7021-8 #### ARIS MCKEON ([id number]) [facility] ([facility]) [address] [place] [address] 04338 Immature granulocytes (Bld) [#/Vol] 0.02 x10*3/uL Normal 0.00-0.70 [facility] Comment on above: Performed By: #### 5 7021-8 #### ARIS MCKEON ([id number]) [facility] ([facility]) [address] [place] [address] 31263 Immature granulocytes/100 WBC (Bld) 0.3 % Normal 0.0-0.9 [facility] Comment on above: Result Comment: Daily ture Granulocyte Count (IG) includes promyelocytes, myelocytes and metamyelocytes but does not include bands. Percent differential counts (%) should be interpreted in the context of the absolute cell counts (cells/UL). Performed By: #### 5 7021-8 #### ARIS MCKEON ([id number]) [facility] ([facility]) [address] [place] [address] 11314 Lymphocytes (Bld) [#/Vol] 2.23 x10*3/uL Normal 1.20-4.80 [facility] Comment on above: Performed By: #### 5 7021-8 #### ARIS MCKEON ([id number]) [facility] ([facility]) [address] [place] [address] 11767 Lymphocytes/100 WBC (Bld) 28.1 % Normal 13.0-44.0 [facility] Comment on above: Performed By: #### 5 7021-8 #### ARIS MCKEON ([id number]) [facility] ([facility]) [address] [place] [address] 32692 MCH (RBC) [Entitic mass] 31.9 pg Normal 26.0-34.0 [facility] Comment on above: Performed By: #### 5 7021-8 #### ARIS MCKEON ([id number]) [facility] ([facility]) [address] [place] [address] 97131 MCHC (RBC) [Mass/Vol] 32.5 g/dL Normal 32.0-36.0 [facility] Comment on above: Performed By: #### 5 7021-8 #### ARIS MCKEON ([id number]) [facility] ([facility]) [address] [place] [address] 50412 MCV (RBC) [Entitic vol] 98 fL Normal 80-100 [facility] Comment on above: Performed By: #### 5 7021-8 #### ARIS MCKEON ([id number]) [facility] ([facility]) [facility] [place] [address] Monocytes (Bld) [#/Vol] 0.41 x10*3/uL Normal 0.10-1.00 [facility] Comment on above: Performed By: #### 5 7021-8 #### ARIS MCKEON ([id number]) [facility] ([facility]) [address] [place] [address] 46902 Monocytes/100 WBC (Bld) 5.2 % Normal 2.0-10.0 [facility] Comment on above: Performed By: #### 5 7021-8 #### ARIS MCKEON ([id number]) [facility] ([facility]) [address] [place] [address] 38289 Neutrophils (Bld) [#/Vol] 5.06 x10*3/uL Normal 1.20-7.70 [facility] Comment on above: Result Comment: Perc ent differential counts (%) should be interpreted in the context of the absolute cell counts (cells/uL). Performed By: #### 5 7021-8 #### ARIS MCKEON ([id number]) [facility] ([facility]) [address] [place] [address] 44233 Neutrophils/100 WBC (Bld) 63.6 % Normal 40.0-80.0 [facility] Comment on above: Performed By: #### 5 7021-8 #### ARIS MCKEON ([id number]) [facility] ([facility]) [address] [place] [address] 72248 Nucleated RBC/100 WBC (Bld) [Ratio] 0.0 /100 WBCs Normal 0.0-0.0 [facility] Comment on above: Performed By: #### 5 7021-8 #### ARIS MCKEON ([id number]) [facility] ([facility]) [address] [place] [address] 73417 Platelets (Bld) [#/Vol] 261 x10*3/uL Normal 150-450 [facility] Comment on above: Performed By: #### 5 7021-8 #### ARIS MCKEON ([id number]) [facility] ([facility]) [address] [place] [address] 64177 RBC (Bld) [#/Vol] 4.27 x10*6/uL Normal 4.00-5.20 [facility] Comment on above: Performed By: #### 5 7021-8 #### ARIS MCKEON ([id number]) [facility] ([facility]) [address] [place] [address] WBC (Bld) [#/Vol] 7.9 x10*3/uL Normal 4.4-11.3 [facility] Comment on above: Performed By: #### 5 7021-8 #### ARIS MCKEON ([id number]) [facility] ([facility]) [address] [place] [address] Comprehensive metabolic 2000 panelon 08-25-2024 Albumin BCP dye [Mass/Vol] 4.2 g/dL Normal 3.4-5.0 [facility] Comment on above: Performed By: #### 2 4323-8 #### ARIS MCKEON ([id number]) [facility] ([facility]) [address] [place] [address] 64826 ALP [Catalytic activity/Vol] 49 U/L Normal 33-136 [facility] Comment on above: Performed By: #### 2 4323-8 #### ARIS MCKEON ([id number]) [facility] ([facility]) [address] [place] [address] 68806 ALT With P-5'-P [Catalytic activity/Vol] 15 U/L Normal 7-45 [facility] Comment on above: Result Comment: Mae ents treated with Sulfasalazine may generate falsely decreased results for ALT. Performed By: #### 2 4323-8 #### ARIS MCKEON ([id number]) [facility] ([facility]) [address] [place] [address] 93579 Anion gap [Moles/Vol] 10 mmol/L Normal 10-20 [facility] Comment on above: Performed By: #### 2 4323-8 #### ARIS MCKEON ([id number]) [facility] ([facility]) [address] [place] [address] AST With P-5'-P [Catalytic activity/Vol] 18 U/L Normal 9-39 [facility] Comment on above: Performed By: #### 2 432-8 #### ARIS MCKEON ([id number]) [facility] ([facility]) [address] [place] [address] Bilirubin [Mass/Vol] 0.7 mg/dL Normal 0.0-1.2 [facility] Comment on above: Performed By: #### 2 4322-8 #### ARIS MCKEON ([id number]) [facility] ([facility]) [address] [place] [address] 55513 Calcium [Mass/Vol] 9.4 mg/dL Normal 8.6-10.3 [facility] Comment on above: Performed By: #### 2 4322-8 #### ARIS MCKEON ([id number]) [facility] ([facility]) [address] [place] [address] 02937 Chloride [Moles/Vol] 108 mmol/L High 98-107 [facility] Comment on above: Performed By: #### 2 4322-8 #### ARIS MCKEON ([id number]) [facility] ([facility]) [address] [place] [address] 51209 CO2 [Moles/Vol] 28 mmol/L Normal 21-32 [facility] Comment on above: Performed By: #### 2 3-8 #### ARIS MCKEON ([id number]) [facility] ([facility]) [address] [place] [address] 48421 Creatinine [Mass/Vol] 0.66 mg/dL Normal 0.50-1.05 [facility] Comment on above: Performed By: #### 2 4322-8 #### ARIS MCKEON ([id number]) [facility] ([facility]) [address] [place] [address] 43618 GFR/1.73 sq M.predicted MDRD (S/P/Bld) [Vol rate/Area] mL/min/{1.73_m2} Normal >60 [facility] Comment on above: Result Comment: Calc ulations of estimated GFR are performed using the 2020 CKD-EPI Study Refit equation without the race variable for the IDMS-Traceable creatinine methods. https://jasn.asnjournals.org/content/early/ASN.2020 817215 Performed By: #### 2 4323-8 #### ARIS MCKEON ([id number]) [facility] ([facility]) [address] [place] [address] 82709 Glucose [Mass/Vol] 123 mg/dL High 74-99 [facility] Comment on above: Performed By: #### 2 4323-8 #### ARIS MCKEON ([id number]) [facility] ([facility]) [address] [place] [address] 18815 Potassium [Moles/Vol] 4.0 mmol/L Normal 3.5-5.3 [facility] Comment on above: Performed By: #### 2 4323-8 #### ARIS MCKEON ([id number]) [facility] ([facility]) [address] [place] [address] 77896 Protein [Mass/Vol] 5.7 g/dL Low 6.4-8.2 [facility] Comment on above: Performed By: #### 2 4323-8 #### ARIS MCKEON ([id number]) [facility] ([facility]) [address] [place] [address] 94866 Sodium [Moles/Vol] 142 mmol/L Normal 136-145 [facility] Comment on above: Performed By: #### 2 4323-8 #### ARIS MCKEON ([id number]) [facility] ([facility]) [address] [place] [address] 03358 Urea nitrogen [Mass/Vol] 11 mg/dL Normal 6-23 [facility] Comment on above: Performed By: #### 2 4323-8 #### ARIS MCKEON ([id number]) [facility] ([facility]) [address] [place] [address] 32918 CBC W Auto Differential pane l (Bld)on 06-18-2024 Basophils (Bld) [#/Vol] 0.04 x10*3/uL Normal 0.00-0.10 [facility] Comment on above: Performed By: #### 5 7021-8 #### ARIS MCKEON ([id number]) [facility] ([facility]) [address] [place] [address] 28679 Basophils/100 WBC (Bld) 0.5 % Normal 0.0-2.0 [facility] Comment on above: Performed By: #### 5 7021-8 #### ARIS MCKEON ([id number]) [facility] ([facility]) [address] [place] [address] 49944 Eosinophils (Bld) [#/Vol] 0.28 x10*3/uL Normal 0.00-0.70 [facility] Comment on above: Performed By: #### 5 7021-8 #### ARIS MCKEON ([id number]) [facility] ([facility]) [address] [place] [address] 81273 Eosinophils/100 WBC (Bld) 3.7 % Normal 0.0-6.0 [facility] Comment on above: Performed By: #### 5 7021-8 #### ARIS MCKEON ([id number]) [facility] ([facility]) [address] [place] [address] 55942 Erythrocyte distribution width (RBC) [Ratio] 14.1 % Normal 11.5-14.5 [facility] Comment on above: Performed By: #### 5 7021-8 #### ARIS MCKEON ([id number]) [facility] ([facility]) [address] [place] [address] 38210 Hematocrit (Bld) [Volume fraction] 41.5 % Normal 36.0-46.0 [facility] Comment on above: Performed By: #### 5 7021-8 #### ARIS MCKEON ([id number]) [facility] ([facility]) [address] [place] [address] 60573 Hemoglobin (Bld) [Mass/Vol] 13.2 g/dL Normal 12.0-16.0 [facility] Comment on above: Performed By: #### 5 7021-8 #### ARIS MCKEON ([id number]) [facility] ([facility]) [address] [place] [address] 89263 Immature granulocytes (Bld) [#/Vol] 0.02 x10*3/uL Normal 0.00-0.70 [facility] Comment on above: Performed By: #### 5 7021-8 #### ARIS MCKEON ([id number]) [facility] ([facility]) [address] [place] [address] 74779 Immature granulocytes/100 WBC (Bld) 0.3 % Normal 0.0-0.9 [facility] Comment on above: Result Comment: Daily ture Granulocyte Count (IG) includes promyelocytes, myelocytes and metamyelocytes but does not include bands. Percent differential counts (%) should be interpreted in the context of the absolute cell counts (cells/UL). Performed By: #### 5 7021-8 #### ARIS MCKEON ([id number]) [facility] ([facility]) [address] [place] [address] 14427 Lymphocytes (Bld) [#/Vol] 2.12 x10*3/uL Normal 1.20-4.80 [facility] Comment on above: Performed By: #### 5 7021-8 #### ARIS MCKEON ([id number]) [facility] ([facility]) [address] [place] [address] 62221 Lymphocytes/100 WBC (Bld) 28.2 % Normal 13.0-44.0 [facility] Comment on above: Performed By: #### 5 7021-8 #### ARIS MCKEON ([id number]) [facility] ([facility]) [address] [place] [address] 76008 MCH (RBC) [Entitic mass] 31.3 pg Normal 26.0-34.0 [facility] Comment on above: Performed By: #### 5 7021-8 #### ARIS MCKEON ([id number]) [facility] ([facility]) [address] [place] [address] 93011 MCHC (RBC) [Mass/Vol] 31.8 g/dL Low 32.0-36.0 [facility] Comment on above: Performed By: #### 5 7021-8 #### ARIS MCKEON ([id number]) [facility] ([facility]) [address] [place] [address] 19583 MCV (RBC) [Entitic vol] 98 fL Normal 80-100 U [facility] Comment on above: Performed By: #### 5 7021-8 #### ARIS MCKEON ([id number]) [facility] ([facility]) [address] [place] [address] 69772 Monocytes (Bld) [#/Vol] 0.64 x10*3/uL Normal 0.10-1.00 [facility] Comment on above: Performed By: #### 5 7021-8 #### ARIS MCKEON ([id number]) [facility] ([facility]) [address] [place] [address] 21579 Monocytes/100 WBC (Bld) 8.5 % Normal 2.0-10.0 [facility] Comment on above: Performed By: #### 5 7021-8 #### ARIS MCKEON ([id number]) [facility] ([facility]) [address] [place] [address] 46524 Neutrophils (Bld) [#/Vol] 4.42 x10*3/uL Normal 1.20-7.70 [facility] Comment on above: Result Comment: Perc ent differential counts (%) should be interpreted in the context of the absolute cell counts (cells/uL). Performed By: #### 5 7021-8 #### ARIS MCKEON ([id number]) [facility] ([facility]) [address] [place] [address] 83965 Neutrophils/100 WBC (Bld) 58.8 % Normal 40.0-80.0 [facility] Comment on above: Performed By: #### 5 7021-8 #### ARIS MCKEON ([id number]) [facility] ([facility]) [address] [place] [address] 05151 Nucleated RBC/100 WBC (Bld) [Ratio] 0.0 /100 WBCs Normal 0.0-0.0 [facility] Comment on above: Performed By: #### 5 7021-8 #### ARIS MCKEON ([id number]) [facility] ([facility]) [address] [place] [address] 93056 Platelets (Bld) [#/Vol] 251 x10*3/uL Normal 150-450 [facility] Comment on above: Performed By: #### 5 7021-8 #### ARIS MCKEON ([id number]) [facility] ([facility]) [address] [place] [address] RBC (Bld) [#/Vol] 4.22 x10*6/uL Normal 4.00-5.20 [facility] Comment on above: Performed By: #### 5 7021-8 #### ARIS MCKEON ([id number]) [facility] ([facility]) [address] [place] [address] WBC (Bld) [#/Vol] 7.5 x10*3/uL Normal 4.4-11.3 [facility] Comment on above: Performed By: #### 5 7021-8 #### ARIS MCKEON ([id number]) [facility] ([facility]) [address] [place] [address] Comprehensive metabolic 2000 panelon 06-18-2024 Albumin BCP dye [Mass/Vol] 4.2 g/dL Normal 3.4-5.0 [facility] Comment on above: Performed By: #### 2 4323-8 #### ARIS MCKEON ([id number]) [facility] ([facility]) [address] [place], [place] [id number] ALP [Catalytic activity/Vol] 56 U/L Normal 33-136 [facility] Comment on above: Performed By: #### 2 4323-8 #### ARIS MCKEON ([id number]) [facility] ([facility]) [address] [place] [address] ALT With P-5'-P [Catalytic activity/Vol] 15 U/L Normal 7-45 [facility] Comment on above: Result Comment: Mae ents treated with Sulfasalazine may generate falsely decreased results for ALT. Performed By: #### 2 4323-8 #### ARIS MCKEON ([id number]) [facility] ([facility]) [facility] [place] [address] Anion gap [Moles/Vol] 11 mmol/L Normal 10-20 [facility] Comment on above: Performed By: #### 2 4323-8 #### ARIS MCKEON ([id number]) [facility] ([facility]) [address] [place] [address] 55361 AST With P-5'-P [Catalytic activity/Vol] 15 U/L Normal 9-39 [facility] Comment on above: Performed By: #### 2 4323-8 #### ARIS MCKEON ([id number]) [facility] ([facility]) [address] [place] [address] 84902 Bilirubin [Mass/Vol] 0.7 mg/dL Normal 0.0-1.2 [facility] Comment on above: Performed By: #### 2 432-8 #### ARIS MCKEON ([id number]) [facility] ([facility]) [address] [place] [address] 53518 Calcium [Mass/Vol] 9.9 mg/dL Normal 8.6-10.3 [facility] Comment on above: Performed By: #### 2 432-8 #### ARIS MCKEON ([id number]) [facility] ([facility]) [address] [place] [address] 27726 Chloride [Moles/Vol] 105 mmol/L Normal 98-107 [facility] Comment on above: Performed By: #### 2 4323-8 #### ARIS MCKEON ([id number]) [facility] ([facility]) [address] [place] [address] 22768 CO2 [Moles/Vol] 31 mmol/L Normal 21-32 [facility] Comment on above: Performed By: #### 2 4323-8 #### ARIS MCKEON ([id number]) [facility] ([facility]) [address] [place] [address] 66869 Creatinine [Mass/Vol] 0.82 mg/dL Normal 0.50-1.05 [facility] Comment on above: Performed By: #### 2 4323-8 #### ARIS MCKEON ([id number]) [facility] ([facility]) [address] [place] [address] 84348 Glomerular filtration rate/1.73 sq M.predicted 79 mL/min/1.73m*2 Normal >60 [facility] Comment on above: Result Comment: Calc ulations of estimated GFR are performed using the 2020 CKD-EPI Study Refit equation without the race variable for the IDMS-Traceable creatinine methods. https://jasn.asnjournals.org/content/early/ASN.2020 675118 Performed By: #### 2 4322-8 #### ARIS MCKEON ([id number]) [facility] ([facility]) [address] [place] [address] 40138 Glucose [Mass/Vol] 108 mg/dL High 74-99 [facility] Comment on above: Performed By: #### 2 4322-8 #### ARIS MCKEON ([id number]) [facility] ([facility]) [address] [place] [address] 51539 Potassium [Moles/Vol] 4.8 mmol/L Normal 3.5-5.3 [facility] Comment on above: Performed By: #### 2 3-8 #### ARIS MCKEON ([id number]) [facility] ([facility]) [address] [place] [address] 16462 Protein [Mass/Vol] 5.8 g/dL Low 6.4-8.2 [facility] Comment on above: Performed By: #### 2 4323-8 #### ARIS MCKEON ([id number]) [facility] ([facility]) [address] [place] [address] 96907 Sodium [Moles/Vol] 142 mmol/L Normal 136-145 [facility] Comment on above: Performed By: #### 2 4323-8 #### ARIS MCKEON ([id number]) [facility] ([facility]) [address] [place] [address] Urea nitrogen [Mass/Vol] 17 mg/dL Normal 6-23 [facility] Comment on above: Performed By: #### 2 4323-8 #### ARIS MCKEON ([id number]) [facility] ([facility]) [facility] [place] [address] HbA1c (Bld) [Mass fraction]o n 05-29-2024 Average glucose Estimated from glycated hemoglobin (Bld) [Mass/Vol] 143 mg/dL Normal Not Established [facility] Comment on above: Order Comment: Diagn osis of Diabetes-Adults Non-Diabetic: < or = 5.6% Increased risk for developing diabetes: 5.7-6.4% Diagnostic of diabetes: > or = 6.5% Performed By: #### 4 548-4 #### KHUSHI Vincent ([id number]) [facility] ([facility]) [address] [place] [address] Hemoglobin A1c/Hemoglobin.to adilia 05-29-2024 HbA1c (Bld) [Mass fraction] 6.6 % High See comment [facility] Comment on above: Order Comment: Diagn osis of Diabetes-Adults Non-Diabetic: < or = 5.6% Increased risk for developing diabetes: 5.7-6.4% Diagnostic of diabetes: > or = 6.5% Performed By: #### 4 548-4 #### KHUSHI Vincent ([id number]) [facility] ([facility]) [address] [place] [address] CBC W Auto Differential pane l (Bld)on 04-24-2024 Basophils (Bld) [#/Vol] 0.04 x10*3/uL Normal 0.00-0.10 [facility] Comment on above: Performed By: #### 5 7021-8 #### ARIS MCKEON ([id number]) [facility] ([facility]) [address] [place] [address] 84514 Basophils/100 WBC (Bld) 0.5 % [facility] on above: Performed By: #### 5 7021-8 #### ARIS MCKEON ([id number]) [facility] ([facility]) [address] [place] [address] 53164 Eosinophils (Bld) [#/Vol] 0.27 x10*3/uL Normal 0.00-0.70 [facility] Comment on above: Performed By: #### 5 7021-8 #### ARIS MCKEON ([id number]) [facility] ([facility]) [address] [place] [address] 22033 Eosinophils/100 WBC (Bld) 3.4 % Normal 0.0-6.0 [facility] Comment on above: Performed By: #### 7021-8 #### ARIS MCKEON ([id number]) [facility] ([facility]) [address] [place] [address] 32437 Erythrocyte distribution width (RBC) [Ratio] 14.4 % Normal 11.5-14.5 [facility] Comment on above: Performed By: #### 5 7021-8 #### ARIS MCKEON ([id number]) [facility] ([facility]) [address] [place] [address] 85834 Hematocrit (Bld) [Volume fraction] 40.6 % Normal 36.0-46.0 [facility] Comment on above: Performed By: #### 5 7021-8 #### ARIS MCKEON ([id number]) [facility] ([facility]) [address] [place] [address] 71385 Hemoglobin (Bld) [Mass/Vol] 12.6 g/dL Normal 12.0-16.0 [facility] Comment on above: Performed By: #### 5 7021-8 #### ARIS MCKEON ([id number]) [facility] ([facility]) [address] [place] [address] 85121 Immature granulocytes (Bld) [#/Vol] 0.03 x10*3/uL Normal 0.00-0.70 [facility] Comment on above: Performed By: #### 5 7021-8 #### ARIS MCKEON ([id number]) [facility] ([facility]) [address] [place] [address] 33453 Immature granulocytes/100 WBC (Bld) 0.4 % Normal 0.0-0.9 [facility] Comment on above: Result Comment: Daily ture Granulocyte Count (IG) includes promyelocytes, myelocytes and metamyelocytes but does not include bands. Percent differential counts (%) should be interpreted in the context of the absolute cell counts (cells/UL). Performed By: #### 5 7021-8 #### ARIS MCKEON ([id number]) [facility] ([facility]) [address] [place] [address] Lymphocytes (Bld) [#/Vol] 2.77 x10*3/uL Normal 1.20-4.80 [facility] Comment on above: Performed By: #### 5 7021-8 #### ARIS MCKEON ([id number]) [facility] ([facility]) [address] [place] [address] Lymphocytes/100 WBC (Bld) 34.6 % Normal 13.0-44.0 [facility] Comment on above: Performed By: #### 5 7021-8 #### ARIS MCKEON ([id number]) [facility] ([facility]) [address] [place] [address] [id number] MCH (RBC) [Entitic mass] 30.1 pg Normal 26.0-34.0 [facility] Comment on above: Performed By: #### 5 7021-8 #### ARIS MCKEON ([id number]) [facility] ([facility]) [address] [place] [address] [id number] MCHC (RBC) [Mass/Vol] 31.0 g/dL Low 32.0-36.0 [facility] Comment on above: Performed By: #### 5 7021-8 #### ARIS MCKEON ([id number]) [facility] ([facility]) [address] [place] [address] [phone] MCV (RBC) [Entitic vol] 97 fL Normal 80-100 [facility] Comment on above: Performed By: #### 5 7021-8 #### ARIS MCKEON ([id number]) [facility] ([facility]) [address] [place] [address] [id number] Monocytes (Bld) [#/Vol] 0.58 x10*3/uL Normal 0.10-1.00 [facility] Comment on above: Performed By: #### 5 7021-8 #### ARIS MCKEON ([id number]) [facility] ([facility]) [address] [place] [address] 18428 Monocytes/100 WBC (Bld) 7.2 % Normal 2.0-10.0 [facility] Comment on above: Performed By: #### 5 7021-8 #### ARIS MCKEON ([id number]) [facility] ([facility]) [address] [place] [address] 41613 Neutrophils (Bld) [#/Vol] 4.32 x10*3/uL Normal 1.20-7.70 [facility] Comment on above: Result Comment: Perc ent differential counts (%) should be interpreted in the context of the absolute cell counts (cells/uL). Performed By: #### 5 7021-8 #### ARIS MCKEON ([id number]) [facility] ([facility]) [address] [place] [address] 85482 Neutrophils/100 WBC (Bld) 53.9 % Normal 40.0-80.0 [facility] Comment on above: Performed By: #### 5 7021-8 #### ARIS MCKEON ([id number]) [facility] ([facility]) [address] [place] [address] 07589 Nucleated RBC/100 WBC (Bld) [Ratio] 0.0 /100 WBCs Normal 0.0-0.0 [facility] Comment on above: Performed By: #### 5 7021-8 #### ARIS MCKEON ([id number]) [facility] ([facility]) [address] [place] [address] 14450 Platelets (Bld) [#/Vol] 250 x10*3/uL Normal 150-450 [facility] Comment on above: Performed By: #### 5 7021-8 #### ARIS MCKEON ([id number]) [facility] ([facility]) [address] [place] [address] 20951 RBC (Bld) [#/Vol] 4.18 x10*6/uL Normal 4.00-5.20 [facility] Comment on above: Performed By: #### 5 7021-8 #### ARIS MCKEON ([id number]) [facility] ([facility]) [address] [place] [address] WBC (Bld) [#/Vol] 8.0 x10*3/uL Normal 4.4-11.3 [facility] Comment on above: Performed By: #### 5 7021-8 #### ARIS MCKEON ([id number]) [facility] ([facility]) [address] [place] [address] Comprehensive metabolic 2000 panelon 04-24-2024 Albumin BCP dye [Mass/Vol] 4.1 g/dL Normal 3.4-5.0 [facility] Comment on above: Performed By: #### 2 4323-8 #### ARIS MCKEON ([id number]) [facility] ([facility]) [address] [place] [address] ALP [Catalytic activity/Vol] 59 U/L Normal 33-136 [facility] Comment on above: Performed By: #### 2 4323-8 #### ARIS MCKEON ([id number]) [facility] ([facility]) [address] [place] [address] ALT With P-5'-P [Catalytic activity/Vol] 19 U/L Normal 7-45 [facility] Comment on above: Result Comment: Mae ents treated with Sulfasalazine may generate falsely decreased results for ALT. Performed By: #### 2 4323-8 #### ARIS MCKEON ([id number]) [facility] ([facility]) [address] [place] [address] 66696 Anion gap [Moles/Vol] 11 mmol/L Normal 10-20 [facility] Comment on above: Performed By: #### 2 4323-8 #### ARIS MCKEON ([id number]) [facility] ([facility]) [address] [place] [address] AST With P-5'-P [Catalytic activity/Vol] 13 U/L Normal 9-39 [facility] Comment on above: Performed By: #### 2 4323-8 #### ARIS MCKEON ([id number]) [facility] ([facility]) [address] [place] [address] Bilirubin [Mass/Vol] 0.5 mg/dL Normal 0.0-1.2 [facility] Comment on above: Performed By: #### 2 4323-8 #### ARIS MCKEON ([id number]) [facility] ([facility]) [address] [place] [address] 79293 Calcium [Mass/Vol] 9.0 mg/dL Normal 8.6-10.3 [facility] Comment on above: Performed By: #### 2 4323-8 #### ARIS MCKEON ([id number]) [facility] ([facility]) [address] [place] [address] 84438 Chloride [Moles/Vol] 107 mmol/L Normal 98-107 [facility] Comment on above: Performed By: #### 2 4323-8 #### ARIS MCKEON ([id number]) [facility] ([facility]) [address] [place] [address] 69569 CO2 [Moles/Vol] 29 mmol/L Normal 21-32 [facility] Comment on above: Performed By: #### 2 4323-8 #### ARIS MCKEON ([id number]) [facility] ([facility]) [address] [place] [address] 56199 Creatinine [Mass/Vol] 0.86 mg/dL Normal 0.50-1.05 [facility] Comment on above: Performed By: #### 2 4323-8 #### ARIS MCKEON ([id number]) [facility] ([facility]) [address] [place] [address] 05011 Glomerular filtration rate/1.73 sq M.predicted 74 mL/min/1.73m*2 Normal >60 [facility] Comment on above: Result Comment: Calc ulations of estimated GFR are performed using the 2020 CKD-EPI Study Refit equation without the race variable for the IDMS-Traceable creatinine methods. https://jasn.asnjournals.org/content/ASN 050164 Performed By: #### 2 4323-8 #### ARIS MCKEON ([id number]) [facility] ([facility]) [address] [place] [address] 69138 Glucose [Mass/Vol] 149 mg/dL High 74-99 [facility] Comment on above: Performed By: #### 2 4323-8 #### ARIS MCKEON ([id number]) [facility] ([facility]) [address] [place] [address] 75036 Potassium [Moles/Vol] 4.4 mmol/L Normal 3.5-5.3 [facility] Comment on above: Performed By: #### 2 4323-8 #### ARIS MCKEON ([id number]) [facility] ([facility]) [address] [place] [address] 14073 Protein [Mass/Vol] 5.8 g/dL Low 6.4-8.2 [facility] Comment on above: Performed By: #### 2 4323-8 #### ARIS MCKEON ([id number]) [facility] ([facility]) [address] [place] [address] 96212 Sodium [Moles/Vol] 143 mmol/L Normal 136-145 [facility] Comment on above: Performed By: #### 2 4323-8 #### ARIS MCKEON ([id number]) [facility] ([facility]) [address] [place] [address] 23662 Urea nitrogen [Mass/Vol] 16 mg/dL Normal 6-23 [facility] Comment on above: Result Comment: Ted ected result: Previously reported as 6 mg/dL (reference range: 6-23 mg/dL) on 04/24/2024 at 1430 EDT. Performed By: #### 2 4323-8 #### ARIS MCKEON ([id number]) [facility] ([facility]) [address] [place] [address] 42501 Comprehensive metabolic 2000 panelon 02-24-2024 Albumin BCP dye [Mass/Vol] 4.1 g/dL Normal 3.4-5.0 [facility] Comment on above: Performed By: #### 2 4323-8 #### ARIS MCKEON ([id number]) [facility] ([facility]) [address] [place] [address] ALP [Catalytic activity/Vol] 61 U/L Normal 33-136 [facility] Comment on above: Performed By: #### 2 4323-8 #### ARIS MCKEON ([id number]) [facility] ([facility]) [address] [place] [address] ALT With P-5'-P [Catalytic activity/Vol] 17 U/L Normal 7-45 [facility] Comment on above: Result Comment: Mae ents treated with Sulfasalazine may generate falsely decreased results for ALT. Performed By: #### 2 4323-8 #### ARIS MCKEON ([id number]) [facility] ([facility]) [address] [place] [address] Anion gap [Moles/Vol] 10 mmol/L Normal 10-20 [facility] Comment on above: Performed By: #### 2 4323-8 #### ARIS MCKEON ([id number]) [facility] ([facility]) [address] [place] [address] AST With P-5'-P [Catalytic activity/Vol] 13 U/L Normal 9-39 [facility] Comment on above: Performed By: #### 2 4323-8 #### ARIS MCKEON ([id number]) [facility] ([facility]) [address] [place] [address] Bilirubin [Mass/Vol] 0.6 mg/dL Normal 0.0-1.2 [facility] Comment on above: Performed By: #### 2 4323-8 #### ARIS MCKEON ([id number]) [facility] ([facility]) [address] [place] [address] Calcium [Mass/Vol] 9.2 mg/dL Normal 8.6-10.3 [facility] Comment on above: Performed By: #### 2 4323-8 #### ARIS MCKEON ([id number]) [facility] ([facility]) [facility] [place] [address] Chloride [Moles/Vol] 107 mmol/L Normal 98-107 [facility] Comment on above: Performed By: #### 2 4323-8 #### ARIS MCKEON ([id number]) [facility] ([facility]) [address] [place] [address] 71429 CO2 [Moles/Vol] 31 mmol/L Normal 21-32 [facility] Comment on above: Performed By: #### 2 4323-8 #### ARIS MCKEON ([id number]) [facility] ([facility]) [address] [place] [address] 69473 Creatinine [Mass/Vol] 0.72 mg/dL Normal 0.50-1.05 [facility] Comment on above: Performed By: #### 2 4323-8 #### ARIS MCKEON ([id number]) [facility] ([facility]) [address] [place] [address] 21569 GFR/1.73 sq M.predicted MDRD (S/P/Bld) [Vol rate/Area] mL/min/{1.73_m2} Normal >60 [facility] Comment on above: Result Comment: Calc ulations of estimated GFR are performed using the 2020 CKD-EPI Study Refit equation without the race variable for the IDMS-Traceable creatinine methods. https://jasn.asnjournals.org/content/early//ASN.2020 420617 Performed By: #### 2 4323-8 #### ARIS MCKEON ([id number]) [facility] ([facility]) [address] [place] [address] 16858 Glucose [Mass/Vol] 144 mg/dL High 74-99 [facility] Comment on above: Performed By: #### 2 4323-8 #### ARIS MCKEON ([id number]) [facility] ([facility]) [address] [place] [address] 15909 Potassium [Moles/Vol] 4.5 mmol/L Normal 3.5-5.3 [facility] Comment on above: Performed By: #### 2 4323-8 #### ARIS MCKEON ([id number]) [facility] ([facility]) [address] [place] [address] 45408 Protein [Mass/Vol] 5.7 g/dL Low 6.4-8.2 [facility] Comment on above: Performed By: #### 2 4323-8 #### ARIS MCKEON ([id number]) [facility] ([facility]) [address] [place] [address] 13597 Sodium [Moles/Vol] 143 mmol/L Normal 136-145 [facility] Comment on above: Performed By: #### 2 4323-8 #### ARIS MCKEON ([id number]) [facility] ([facility]) [address] [place] [address] 96129 Urea nitrogen [Mass/Vol] 22 mg/dL Normal 6-23 [facility] Comment on above: Performed By: #### 2 4323-8 #### ARIS MCKEON ([id number]) [facility] ([facility]) [address] [place] [address] 69699 HbA1c (Bld) [Mass fraction]o n 02-24-2024 Average glucose Estimated from glycated hemoglobin (Bld) [Mass/Vol] 163 mg/dL Normal Not Established [facility] Comment on above: Order Comment: Diagn osis of Diabetes-Adults Non-Diabetic: < or = 5.6% Increased risk for developing diabetes: 5.7-6.4% Diagnostic of diabetes: > or = 6.5% Performed By: #### 4 548-4 #### ARIS MCKEON ([id number]) [facility] ([facility]) [address] [place] [address] 62957 Hemoglobin A1c/Hemoglobin.to adilia 02-24-2024 HbA1c (Bld) [Mass fraction] 7.3 % High see below [facility] Comment on above: Order Comment: Diagn osis of Diabetes-Adults Non-Diabetic: < or = 5.6% Increased risk for developing diabetes: 5.7-6.4% Diagnostic of diabetes: > or = 6.5% Performed By: #### 4 548-4 #### ARIS MCKEON ([id number]) [facility] ([facility]) [address] [place] [address] ANTINUCLEAR ANTIBODIES DIREC Ton 02-12-2024 LES,DIRECT Negative Normal Negative [facility] Comment on above: Result Comment: Perf ormed at: [address] [id number] Cage Operator: Edson Weiner PhD, Phone: [phone] Performed By: #### L 4600.0100, L500.4050, L100.0100, L3890.6200, L3100.5475, L3890.6300, L101.9900, L3890.6100, L505.7010, L501.6710 ####[facility] [address] [place], [address] CCP IgG Antibodieson 024 CCP IgG Ab. 3 units Normal 0-19 [facility] Comment on above: Result Comment: Nega tive <20 Weak positive 20 - 39 Moderate positive 40 - 59 Strong positive >59 Performed at: [address] [id number] Cage Operator: Edson Weiner PhD, Phone: [phone] Performed By: #### L 4600.0100, L500.4050, L100.0100, L3890.6200, L3100.5475, L3890.6300, L101.9900, L3890.6100, L505.7010, L501.6710 ####[facility] [address] [place], [address] CBC W/Diff, Automatedon 01-18 Absolute Lymph 2.66 X10 3/uL Normal 0.83-4.51 [facility] Comment on above: Performed By: #### L 4600.0100, L500.4050, L100.0100, L3890.6200, L3100.5475, L3890.6300, L101.9900, L3890.6100, L505.7010, L501.6710 #### [facility] [address] [place], [address] Absolute Neut 4.5 X10 3/uL Normal 2.0-7.7 [facility] Comment on above: Performed By: #### L 4600.0100, L500.4050, L100.0100, L3890.6200, L3100.5475, L3890.6300, L101.9900, L3890.6100, L505.7010, L501.6710 #### [facility] [address] [facility] [place], [address] Basophils/100 WBC (Bld) 0.6 % Normal 0-1 [facility] Comment on above: Performed By: #### L 4600.0100, L500.4050, L100.0100, L3890.6200, L3100.5475, L3890.6300, L101.9900, L3890.6100, L505.7010, L501.6710 #### [facility] [address] [facility] [place], [address] Eosinophils/100 WBC (Bld) 2.3 % Normal 0-5 [facility] Comment on above: Performed By: #### L 4600.0100, L500.4050, L100.0100, L3890.6200, L3100.5475, L3890.6300, L101.9900, L3890.6100, L505.7010, L501.6710 #### [facility] [address] [facility], [address] Erythrocyte distribution width (RBC) [Ratio] 12.6 % Normal 11.6-14.6 [facility] Comment on above: Performed By: #### L 4600.0100, L500.4050, L100.0100, L3890.6200, L3100.5475, L3890.6300, L101.9900, L3890.6100, L505.7010, L501.6710 #### [facility] [address] [place], [address] Hematocrit (Bld) [Volume fraction] 40.7 % Normal 37-47 [facility] Comment on above: Performed By: #### L 4600.0100, L500.4050, L100.0100, L3890.6200, L3100.5475, L3890.6300, L101.9900, L3890.6100, L505.7010, L501.6710 #### [facility] [address] [facility], [address] ( Hemoglobin (Bld) [Mass/Vol] 13.1 g/dL Normal 12.0-15.0 [facility] Comment on above: Performed By: #### L 4600.0100, L500.4050, L100.0100, L3890.6200, L3100.5475, L3890.6300, L101.9900, L3890.6100, L505.7010, L501.6710 #### [facility] [address] [place], [address] ( IG% 0.300 Normal 0.0-0.9 [facility] Comment on above: Result Comment: IG% - Immature Granulocytes (promyelocytes, myelocytes and metamyelocytes) > 1% indicates that a LEFT SHIFT is Present. Performed By: #### L 4600.0100, L500.4050, L100.0100, L3890.6200, L3100.5475, L3890.6300, L101.9900, L3890.6100, L505.7010, L501.6710 #### [facility] [address] [place], [address] Lymphocytes/100 WBC (Bld) 33.6 % Normal 19-41 [facility] Comment on above: Performed By: #### L 4600.0100, L500.4050, L100.0100, L3890.6200, L3100.5475, L3890.6300, L101.9900, L3890.6100, L505.7010, L501.6710 #### [facility] [address] [place], [address] (773) MCH (RBC) [Entitic mass] 29.6 pg Normal 27.0-32.0 [facility] Comment on above: Performed By: #### L 4600.0100, L500.4050, L100.0100, L3890.6200, L3100.5475, L3890.6300, L101.9900, L3890.6100, L505.7010, L501.6710 #### [facility] [address] [place], [address] MCHC (RBC) [Mass/Vol] 32.2 g/dL Normal 32-36 [facility] Comment on above: Performed By: #### L 4600.0100, L500.4050, L100.0100, L3890.6200, L3100.5475, L3890.6300, L101.9900, L3890.6100, L505.7010, L501.6710 #### [facility] [address] [place], [address] MCV (RBC) [Entitic vol] 91.9 fL Normal 81-99 [facility] Comment on above: Performed By: #### L 4600.0100, L500.4050, L100.0100, L3890.6200, L3100.5475, L3890.6300, L101.9900, L3890.6100, L505.7010, L501.6710 #### [facility] [address] [place], [address] (134) Monocytes/100 WBC (Bld) 7.1 % Normal 0-10 [facility] Comment on above: Performed By: #### L 4600.0100, L500.4050, L100.0100, L3890.6200, L3100.5475, L3890.6300, L101.9900, L3890.6100, L505.7010, L501.6710 #### [facility] [address] [place], [place], [phone] (616) Neutrophils/100 WBC (Bld) 56.1 % Normal 47-70 [facility] Comment on above: Performed By: #### L 4600.0100, L500.4050, L100.0100, L3890.6200, L3100.5475, L3890.6300, L101.9900, L3890.6100, L505.7010, L501.6710 #### [facility] [address] [facility] [place], [place], [phone] Nucleated RBC (Bld) [#/Vol] 0 10*3/uL Normal 0-5 [facility] Comment on above: Performed By: #### L 4600.0100, L500.4050, L100.0100, L3890.6200, L3100.5475, L3890.6300, L101.9900, L3890.6100, L505.7010, L501.6710 #### [facility] [address] [facility] [place], [place], [phone] Platelet mean volume (Bld) [Entitic vol] 11.5 fL Normal 6.2-12.0 [facility] Comment on above: Performed By: #### L 4600.0100, L500.4050, L100.0100, L3890.6200, L3100.5475, L3890.6300, L101.9900, L3890.6100, L505.7010, L501.6710 #### [facility] [address] [place], [address] Platelets (Bld) [#/Vol] 237 10*3/uL Normal 150-450 [facility] Comment on above: Performed By: #### L 4600.0100, L500.4050, L100.0100, L3890.6200, L3100.5475, L3890.6300, L101.9900, L3890.6100, L505.7010, L501.6710 #### [facility] [address] [place], [address] RBC (Bld) [#/Vol] 4.43 10*6/uL Normal 4.2-5.4 [facility] Comment on above: Performed By: #### L 4600.0100, L500.4050, L100.0100, L3890.6200, L3100.5475, L3890.6300, L101.9900, L3890.6100, L505.7010, L501.6710 #### [facility] [address] [place], [address] RDW SD 42.5 fl Normal 35.1-43.9 [facility] Comment on above: Performed By: #### L 4600.0100, L500.4050, L100.0100, L3890.6200, L3100.5475, L3890.6300, L101.9900, L3890.6100, L505.7010, L501.6710 #### [facility] [address] [place], [address] WBC (Bld) [#/Vol] 7.9 10*3/uL Normal 4.4-11.0 [facility] Comment on above: Performed By: #### L 4600.0100, L500.4050, L100.0100, L3890.6200, L3100.5475, L3890.6300, L101.9900, L3890.6100, L505.7010, L501.6710 #### [facility] [address] [place], [address] CRPon 02-10-2024 C-REACTIVE PROT < 2.90 Normal 0.0-3.0 [facility] Comment on above: Result Comment: C-Re active Protein (CRP) provides useful information for the diagnosis, therapy and monitoring of inflammatory processes and associated diseases. For the evaluation of Relative Risk for Cardiovascular Disease, a High Sensitivity CRP (HSCRP) should be ordered. Performed By: #### L 4600.0100, L500.4050, L100.0100, L3890.6200, L3100.5475, L3890.6300, L101.9900, L3890.6100, L505.7010, L501.6710 #### [facility] [address] [place], [address] Comprehensive Metabolic Prof ilon 02-10-2024 Albumin [Mass/Vol] 3.8 g/dL Normal 3.2-5.0 [facility] Comment on above: Performed By: #### L 4600.0100, L500.4050, L100.0100, L3890.6200, L3100.5475, L3890.6300, L101.9900, L3890.6100, L505.7010, L501.6710 #### [facility] [address] [place], [address] Albumin/Globulin [Mass ratio] 1.2 {ratio} Normal 0.9-2.4 [facility] Comment on above: Performed By: #### L 4600.0100, L500.4050, L100.0100, L3890.6200, L3100.5475, L3890.6300, L101.9900, L3890.6100, L505.7010, L501.6710 #### [facility] [address] [place], [address] ALK P 74 U/L Normal 45-117 [facility] Comment on above: Performed By: #### L 4600.0100, L500.4050, L100.0100, L3890.6200, L3100.5475, L3890.6300, L101.9900, L3890.6100, L505.7010, L501.6710 #### [facility] [address] [place], [address] ALT [Catalytic activity/Vol] 31 U/L Normal 13-56 [facility] Comment on above: Performed By: #### L 4600.0100, L500.4050, L100.0100, L3890.6200, L3100.5475, L3890.6300, L101.9900, L3890.6100, L505.7010, L501.6710 #### [facility] [address] [place], [place], [id number] AST [Catalytic activity/Vol] 21 U/L Normal 15-37 [facility] Comment on above: Performed By: #### L 4600.0100, L500.4050, L100.0100, L3890.6200, L3100.5475, L3890.6300, L101.9900, L3890.6100, L505.7010, L501.6710 #### [facility] [address] [place], [place], [id number] Bilirubin [Mass/Vol] 0.40 mg/dL Normal 0.20-1.00 [facility] Comment on above: Result Comment: For patients on eltrombopag therapy, use of Dimension [place] TBIL is not recommended. Performed By: #### L 4600.0100, L500.4050, L100.0100, L3890.6200, L3100.5475, L3890.6300, L101.9900, L3890.6100, L505.7010, L501.6710 #### [facility] [address] [place], [address] BUN/CRE 22.5 RATIO High 10-20 [facility] Comment on above: Performed By: #### L 4600.0100, L500.4050, L100.0100, L3890.6200, L3100.5475, L3890.6300, L101.9900, L3890.6100, L505.7010, L501.6710 #### [facility] [address] [place], [address] CA,Total 9.2 mg/dL Normal 8.5-10.1 [facility] Comment on above: Performed By: #### L 4600.0100, L500.4050, L100.0100, L3890.6200, L3100.5475, L3890.6300, L101.9900, L3890.6100, L505.7010, L501.6710 #### [facility] [address] [facility] [place], [address] Chloride [Moles/Vol] 108 mmol/L High 98-107 [facility] Comment on above: Performed By: #### L 4600.0100, L500.4050, L100.0100, L3890.6200, L3100.5475, L3890.6300, L101.9900, L3890.6100, L505.7010, L501.6710 #### [facility] [address] [place], [address] CO2 [Moles/Vol] 26.0 mmol/L Normal 21.0-32.0 [facility] Comment on above: Performed By: #### L 4600.0100, L500.4050, L100.0100, L3890.6200, L3100.5475, L3890.6300, L101.9900, L3890.6100, L505.7010, L501.6710 #### [facility] [address] [place], [place], [id number] Creatinine [Mass/Vol] 0.89 mg/dL Normal 0.55-1.02 [facility] Comment on above: Result Comment: The validity of the calculated GFR GFRAA in patients over 70 years has not been determined. Clinical correlation is essential. Performed By: #### L 4600.0100, L500.4050, L100.0100, L3890.6200, L3100.5475, L3890.6300, L101.9900, L3890.6100, L505.7010, L501.6710 #### [facility] [address] [place], [address] EST GFR - AA 81 mL/min Normal >60 [facility] Comment on above: Result Comment: Afri can Citizen Of [place] GFR Calc Performed By: #### L 4600.0100, L500.4050, L100.0100, L3890.6200, L3100.5475, L3890.6300, L101.9900, L3890.6100, L505.7010, L501.6710 #### [facility] [address] [place], [address] GAP 7 Normal 5-15 [facility] Comment on above: Performed By: #### L 4600.0100, L500.4050, L100.0100, L3890.6200, L3100.5475, L3890.6300, L101.9900, L3890.6100, L505.7010, L501.6710 #### [facility] [address] [place], [address] GFR/1.73 sq M.predicted among non-blacks MDRD (S/P/Bld) [Vol rate/Area] 67 mL/min/{1.73_m2} Normal >60 [facility] Comment on above: Result Comment: Non- GFR Calc Performed By: #### L 4600.0100, L500.4050, L100.0100, L3890.6200, L3100.5475, L3890.6300, L101.9900, L3890.6100, L505.7010, L501.6710 #### [facility] [address] [place], [address] Globulin (S) [Mass/Vol] 3.3 g/dL Normal 2.2-4.2 [facility] Comment on above: Performed By: #### L 4600.0100, L500.4050, L100.0100, L3890.6200, L3100.5475, L3890.6300, L101.9900, L3890.6100, L505.7010, L501.6710 #### [facility] [address] [place], [place], [phone] ([phone]) Glucose [Mass/Vol] 104 mg/dL Normal 74-106 [facility] Comment on above: Result Comment: Fast ing Glucose result from 100 to 125 mg/dL suggests IMPAIRED HOMEOSTASIS per A.D.A. criteria. Performed By: #### L 4600.0100, L500.4050, L100.0100, L3890.6200, L3100.5475, L3890.6300, L101.9900, L3890.6100, L505.7010, L501.6710 #### [facility] [address] [place], [place], [id number] ([phone]) Potassium [Moles/Vol] 4.0 mmol/L Normal 3.5-5.1 [facility] Comment on above: Performed By: #### L 4600.0100, L500.4050, L100.0100, L3890.6200, L3100.5475, L3890.6300, L101.9900, L3890.6100, L505.7010, L501.6710 #### [facility] [address] [place], [place], [id number] (331) Sodium [Moles/Vol] 141 mmol/L Normal 136-145 [facility] Comment on above: Performed By: #### L 4600.0100, L500.4050, L100.0100, L3890.6200, L3100.5475, L3890.6300, L101.9900, L3890.6100, L505.7010, L501.6710 #### [facility] [address] [place], [address] T PROT 7.1 g/dL Normal 6.4-8.2 [facility] Comment on above: Performed By: #### L 4600.0100, L500.4050, L100.0100, L3890.6200, L3100.5475, L3890.6300, L101.9900, L3890.6100, L505.7010, L501.6710 #### [facility] [address] [place], [place], [id number] Urea nitrogen [Mass/Vol] 20 mg/dL High 7-18 [facility] Comment on above: Performed By: #### L 4600.0100, L500.4050, L100.0100, L3890.6200, L3100.5475, L3890.6300, L101.9900, L3890.6100, L505.7010, L501.6710 #### [facility] [address] [place], [place], [address] Erythrocyte Sed Rateon 02-09 SED RATE 11 mm/hr Normal 0-30 [facility] Comment on above: Performed By: #### L 4600.0100, L500.4050, L100.0100, L3890.6200, L3100.5475, L3890.6300, L101.9900, L3890.6100, L505.7010, L501.6710 #### [facility] [address] [place], [address] Hand Min 3 Viewson 4 Hand Min 3 Views [facility] Imaging Services [address] [place], [place] [address] Hand Min 3 Views MR#: [id number] Acct: [id number] Name: FREDI PAREKH Rep #: [id number] : 1955 F 68 From: Andrew Means MD PCP: CARMELINA Boyce Status: REG CLI Study: Hand Min 3 Views Date of Exam: 02/10/24 Exam# [id number] Ordering Dr: [place] [id number] STUDY: X-RAY - RIGHT HAND REASON FOR EXAM: Female, 68 years old. RHEUMATOID ARTHRITIS TECHNIQUE: 3 views of the right hand. COMPARISON: None. FINDINGS: There is degenerative arthrosis of the radiocarpal joint. Normal distal radioulnar joint. Normal visualized carpal bones. Normal carpal articulations There is degenerative arthrosis at the carpometacarpal articulation of the thumb. Normal second through fifth carpometacarpal joints. Normal metacarpi. Normal metacarpophalangeal joint of the thumb. Normal interphalangeal joint of the thumb. Normal proximal and distal phalanges of the thumb. Normal metacarpophalangeal joints of the second through fifth fingers. Normal proximal interphalangeal joints of the second through fifth fingers. There is minimal degenerative arthrosis of the second through fifth DIP joints. Normal phalanges of the second through fifth fingers. The soft tissue structures are unremarkable. RAD/Hand Min 3 Views IMPRESSION: Degenerative arthrosis of the radiocarpal joint, first CMC joint, and second through fifth DIP joints. Electronically Signed: Andrew Means MD at 14:37 EDT Reading Location ID and State: [facility] / [place] , Service support , CC: Dr. Steph Castorena MD; CARMELINA Boyce Tenter: Signed Normal [facility] Hand Min 3 Views [facility] Imaging Services [address] [place], [place] [address] Hand Min 3 Views MR#: [id number] Acct: [id number] Name: FREDI PAREKH Rep #: [id number] : 1955 F 68 From: Andrew Means MD PCP: CARMELINA Boyce Status: REG CLI Study: Hand Min 3 Views Date of Exam: 02/10/24 Exam# [id number] Ordering Dr: [place] [id number] STUDY: X-RAY - LEFT HAND REASON FOR EXAM: Female, 68 years old. RHEUMATOID ARTHRITIS TECHNIQUE: 3 views of the left hand. COMPARISON: None. FINDINGS: There is generalized osteopenia. There is mild radiocarpal arthrosis. Normal distal radioulnar joint. Normal visualized carpal bones. Normal carpal articulations There is severe degenerative arthrosis at the first carpometacarpal articulation of the thumb. Normal second through fifth carpometacarpal joints. Normal metacarpi. Normal metacarpophalangeal joint of the thumb. Normal interphalangeal joint of the thumb. Normal proximal and distal phalanges of the thumb. Normal metacarpophalangeal joints of the second through fifth fingers. Normal proximal interphalangeal joints of the second through fifth fingers. There is mild degenerative arthrosis of the second and third DIP joints. Normal phalanges of the second through fifth fingers. The soft tissue structures are unremarkable. RAD/Hand Min 3 Views IMPRESSION: Degenerative arthrosis at the radiocarpal joint, first CMC joint, as well as second and third DIP joints. Electronically Signed: Andrew Means MD at 14:32 EDT Reading Location ID and State: [facility] / [place] , Service support , CC: Dr. Steph Castorena MD; CARMELINA Boyce Tenter: Signed Normal [facility] Hepatitis B Surface Antibody on 02-10-2024 HEP B Surf Ab Non-Reactive Normal [facility] Comment on above: Result Comment: Non Reactive: Inconsistent with immunity less than <10 mIU/mL Reactive: Consistent with immunity greater than or equal to 10 mIU/mL Performed By: #### L 4600.0100, L500.4050, L100.0100, L3890.6200, L3100.5475, L3890.6300, L101.9900, L3890.6100, L505.7010, L501.6710 #### [facility] [address] [place], [address] Hepatitis B Surface Antigeno n 02-10-2024 HEP B Surf Ag Non-Reactive Normal Nonreactive [facility] Comment on above: Performed By: #### L 4600.0100, L500.4050, L100.0100, L3890.6200, L3100.5475, L3890.6300, L101.9900, L3890.6100, L505.7010, L501.6710 #### [facility] [address] [place], [address] Hepatitis C Antibodyon 02-09 Hepatitis C AB Non-Reactive Normal Nonreactive [facility] Comment on above: Result Comment: Non Reactive: < 0.8 Equivocal: >/= 0.8 to < 1.0 Reactive: >/= 1.0 The CDC requires that a reactive/equivocal HCV antibody result be sent out for confirmation. HCV Quant by PCR testing. Performed By: #### L 4600.0100, L500.4050, L100.0100, L3890.6200, L3100.5475, L3890.6300, L101.9900, L3890.6100, L505.7010, L501.6710 #### [facility] [address] [place], [address] Rheumatoid Factoron 02-10-20 24 RHEUMATOID FAC 65.0 IU/mL High <15 [facility] Comment on above: Performed By: #### L 4600.0100, L500.4050, L100.0100, L3890.6200, L3100.5475, L3890.6300, L101.9900, L3890.6100, L505.7010, L501.6710 #### [facility] [address] [place], [address] No Panel Informationon [facility] Work Phone: POCT BD Veritor Triplex Agon 10-17-2023 Interpretation and review of laboratory results Abnormal [facility] Work Phone: POC Triplex Flu A-Ag Presumptive negativ e for Triplex FLU A (no antigen detected) Presumptive negative for Triplex FLU A (no antigen detected) [facility] Work Phone: POC Triplex Flu B-Ag Positive Abnormal Presump tive negative for Triplex FLU B (no antigen detected) [facility] Work Phone: SARS-CoV-2 (COVID-19) RNA ALEXIS+probe Ql (Unsp spec) Presumptive negative for Triplex SARS-CoV-2 (no antigen detected) Presumptive negative for Triplex SARS-CoV-2 (no antigen detected) [facility] Work Phone: POCT Group A Streptococcus, PCR manually resultedon 10-17-2023 S. pyogenes DNA ALEXIS+probe Ql (Throat) Not detected Not Detected [facility] Work Phone: DBT Breast - bilateralon No mammographic evidence of malignancy. BI-RADS CATEGORY: BI-RADS Category: 1 Negative. Recommendation: Routine Screening Mammogram in 1 Year. Recommended Date: 1 Year. Laterality: Bilateral. MACRO: None Signed by: Miguelangel Rivas 09/13/2023 9:16 AM Dictation workstation: [id number] [facility] Interpreted By: Miguelangel Rivas, STUDY: BI MAMMO BILATERAL SCREENING TOMOSYNTHESIS; 09/12/2023 2:01 pm ACCESSION NUMBER(S): [id number] ORDERING CLINICIAN: ARNOLD HERNANDES INDICATION: Screening. COMPARISON: Digital mammogram dated 03/23/2021 FINDINGS: CC and MLO 2D digital mammograms and digital breast tomosynthesis images were obtained of the bilateral breasts. 3-D volume images were reconstructed in 4 views at an independent workstation as 1 mm slices through the breasts in both the CC and MLO projections. Density: The breast tissue is almost entirely fatty. No discrete mass or focal asymmetry is identified. No suspicious microcalcifications or foci of architectural distortion are seen. There has been no significant change. This study was interpreted with CAD. [facility] Miguelangel Rivas MD - 09/13/2023 Interpreted By: Miguelangel Rivas, STUDY: BI MAMMO BILATERAL SCREENING TOMOSYNTHESIS; 09/12/2023 2:01 pm ACCESSION NUMBER(S): [id number] ORDERING CLINICIAN: ARNOLD HERNANDES INDICATION: Screening. COMPARISON: Digital mammogram dated 03/23/2021 FINDINGS: CC and MLO 2D digital mammograms and digital breast tomosynthesis images were obtained of the bilateral breasts. 3-D volume images were reconstructed in 4 views at an independent workstation as 1 mm slices through the breasts in both the CC and MLO projections. Density: The breast tissue is almost entirely fatty. No discrete mass or focal asymmetry is identified. No suspicious microcalcifications or foci of architectural distortion are seen. There has been no significant change. This study was interpreted with CAD. IMPRESSION: No mammographic evidence of malignancy. BI-RADS CATEGORY: BI-RADS Category: 1 Negative. Recommendation: Routine Screening Mammogram in 1 Year. Recommended Date: 1 Year. Laterality: Bilateral. MACRO: None Signed by: Miguelangel Rivas 09/13/2023 9:16 AM Dictation workstation: [id number] [facility] Work Phone: DBT Breast - bilateralOrdere d By: Miguelangel Rivas on 09-13-2023 [facility] Work Phone: DXA Skeletal system Views fo r bone densityon 09-13-2023 DEXA: According to World Health Organization criteria, classification is low bone mass (osteopenia) Followup recommended in two years or sooner as clinically warranted. VFA: NO VERTEBRAL FRACTURES WERE SEEN. All images and detailed analysis are available on the Radiology PACS. MACRO: None Signed by: Miguelangel Rivas 09/13/2023 12:07 PM Dictation workstation: [id number] [facility] Interpreted By: Miguelangel Rivas, STUDY: DEXA BONE DENSITY09/12/2023 2:29 pm INDICATION: Signs/Symptoms:tramainein ramez. The patient is a 67 y/o year old F. COMPARISON: None. ACCESSION NUMBER(S): [id number] ORDERING CLINICIAN: ARNOLD HERNANDES TECHNIQUE: DEXA BONE DENSITY FINDINGS: SPINE L1-L4 Bone Mineral Density: 1.199 T-Score 0.0 Z-Score 1.7 Bone Mineral Density change vs baseline: Not reported Bone Mineral Density change vs previous: Not reported LEFT FEMUR -TOTAL Bone Mineral Density: 0.997 T-Score -0.1 Z-Score 1.2 Bone Mineral Density change vs baseline: Not reported Bone Mineral Density change vs previous: Not reported LEFT FEMUR -NECK Bone Mineral Density: 0.852 T-Score -1.3 Z-Score 0.2 RIGHT FEMUR -TOTAL Bone Mineral Density: 0.990 T-Score -0.1 Z-Score 1.2 Bone Mineral Density change vs baseline: Not reported Bone Mineral Density change vs previous: Not reported RIGHT FEMUR -NECK Bone Mineral Density: 0.907 T-Score -0.9 Z-Score 0.6 World Health Organization (WHO) criteria for post-menopausal, Women: Normal: T-score at or above -1 SD Osteopenia: T-score between -1 and -2.5 SD Osteoporosis: T-score at or below -2.5 SD 10-year Fracture Risk: Major Osteoporotic Fracture 14.1 Hip Fracture 1.4 Note: If no FRAX score is reported, it is because: Some T-score for Spine Total or Hip Total or Femoral Neck at or below -2.5 Vertebral Deformity Assessment: Exam Date - 09/12/2023 2:29 pm Vertebral Level Impression T4 None T5 None T6 None T7 None T8 None T9 None T10 None T11 None T12 None L1 None L2 None L3 None L4 None A spine fracture indicates 5X risk for subsequent spine fracture and 2X risk for subsequent hip fracture. This exam was performed at [facility] on a [employer] Advanced Dexa Unit. [facility] Miguelangel Rivas MD - 09/13/2023 Interpreted By: Miguelangel Rivas, STUDY: DEXA BONE DENSITY09/12/2023 2:29 pm INDICATION: Signs/Symptoms:tramainein ramez. The patient is a 67 y/o year old F. COMPARISON: None. ACCESSION NUMBER(S): [id number] ORDERING CLINICIAN: ARNOLD HERNANDES TECHNIQUE: DEXA BONE DENSITY FINDINGS: SPINE L1-L4 Bone Mineral Density: 1.199 T-Score 0.0 Z-Score 1.7 Bone Mineral Density change vs baseline: Not reported Bone Mineral Density change vs previous: Not reported LEFT FEMUR -TOTAL Bone Mineral Density: 0.997 T-Score -0.1 Z-Score 1.2 Bone Mineral Density change vs baseline: Not reported Bone Mineral Density change vs previous: Not reported LEFT FEMUR -NECK Bone Mineral Density: 0.852 T-Score -1.3 Z-Score 0.2 RIGHT FEMUR -TOTAL Bone Mineral Density: 0.990 T-Score -0.1 Z-Score 1.2 Bone Mineral Density change vs baseline: Not reported Bone Mineral Density change vs previous: Not reported RIGHT FEMUR -NECK Bone Mineral Density: 0.907 T-Score -0.9 Z-Score 0.6 World Health Organization (WHO) criteria for post-menopausal, Women: Normal: T-score at or above -1 SD Osteopenia: T-score between -1 and -2.5 SD Osteoporosis: T-score at or below -2.5 SD 10-year Fracture Risk: Major Osteoporotic Fracture 14.1 Hip Fracture 1.4 Note: If no FRAX score is reported, it is because: Some T-score for Spine Total or Hip Total or Femoral Neck at or below -2.5 Vertebral Deformity Assessment: Exam Date - 09/12/2023 2:29 pm Vertebral Level Impression T4 None T5 None T6 None T7 None T8 None T9 None T10 None T11 None T12 None L1 None L2 None L3 None L4 None A spine fracture indicates 5X risk for subsequent spine fracture and 2X risk for subsequent hip fracture. This exam was performed at [facility] on a [employer] Advanced Dexa Unit. IMPRESSION: DEXA: According to World Health Organization criteria, classification is low bone mass (osteopenia) Followup recommended in two years or sooner as clinically warranted. VFA: NO VERTEBRAL FRACTURES WERE SEEN. All images and detailed analysis are available on the Radiology PACS. MACRO: None Signed by: Miguelangel Rivas 09/13/2023 12:07 PM Dictation workstation: [id number] [facility] Work Phone: DXA Skeletal system Views fo r bone densityOrdered By: Miguelangel Rivas on 09-13-2023 [facility] Work Phone: DBT Breast - bilateralon Radiology Study observation (narrative) [facility] Work Phone: DXA Skeletal system Views fo r bone densityon 09-12-2023 Radiology Study observation (narrative) [facility] Work Phone: CT Sinuses WO contraston The nasal septum deviates to the left. The maxillary sinuses have mild mucosal thickening inferiorly bilaterally. The anterior right and posterior left ethmoid air cells have small amounts of mucus. Signed by: Shashank Martinez 07/09/2023 2:27 PM Dictation workstation: [id number] [facility] Interpreted By: Shashank Martinez, STUDY: CT SINUS WO IV CONTRAST; 07/09/2023 10:00 am INDICATION: Signs/Symptoms:max sinus pressure for 2 months. COMPARISON: None. ACCESSION NUMBER(S): [id number] ORDERING CLINICIAN: ACACIA CAMPOS TECHNIQUE: Axial CT images of the paranasal sinuses were obtained and reconstructed in the coronal and sagittal plane. FINDINGS: Nasal cavity: The nasal septum deviates to the left. Bilateral middle turbinate jesusita bullosa are present, larger on the right at 7 mm. No bony dehiscences along the cribriform plates are noted. The olfactory fossae are 4 mm depth bilaterally. The uncinate processes insert on the middle turbinates bilaterally. Maxillary sinuses: Both maxillary sinuses have mucosal thickening inferiorly. The ostia and infundibula are normally aerated bilaterally. Frontal sinuses: Normally aerated. Ethmoid sinuses: The anterior right and posterior left ethmoid air cells have small amounts of mucus. No bony dehiscences along the lamina papyracea are noted. Air cells extend over the notches for the anterior ethmoid arteries bilaterally more so on the left. Sphenoid sinuses: The sphenoid sinuses are normally aerated. The septum deviates to the left posteriorly the left sinus extends partially into the anterior clinoid process. No bony dehiscences or onodi cells are noted. Mastoid air cells: The inferior right mastoid air cells have a small amount of fluid. The visualized mastoid air cells and middle ear cavities are otherwise normally aerated. [facility] Shashank Martinez MD - 07/09/2023 Interpreted By: Shashank Martinez, STUDY: CT SINUS WO IV CONTRAST; 07/09/2023 10:00 am INDICATION: Signs/Symptoms:max sinus pressure for 2 months. COMPARISON: None. ACCESSION NUMBER(S): [id number] ORDERING CLINICIAN: ACACIA CAMPOS TECHNIQUE: Axial CT images of the paranasal sinuses were obtained and reconstructed in the coronal and sagittal plane. FINDINGS: Nasal cavity: The nasal septum deviates to the left. Bilateral middle turbinate jesusita bullosa are present, larger on the right at 7 mm. No bony dehiscences along the cribriform plates are noted. The olfactory fossae are 4 mm depth bilaterally. The uncinate processes insert on the middle turbinates bilaterally. Maxillary sinuses: Both maxillary sinuses have mucosal thickening inferiorly. The ostia and infundibula are normally aerated bilaterally. Frontal sinuses: Normally aerated. Ethmoid sinuses: The anterior right and posterior left ethmoid air cells have small amounts of mucus. No bony dehiscences along the lamina papyracea are noted. Air cells extend over the notches for the anterior ethmoid arteries bilaterally more so on the left. Sphenoid sinuses: The sphenoid sinuses are normally aerated. The septum deviates to the left posteriorly the left sinus extends partially into the anterior clinoid process. No bony dehiscences or onodi cells are noted. Mastoid air cells: The inferior right mastoid air cells have a small amount of fluid. The visualized mastoid air cells and middle ear cavities are otherwise normally aerated. IMPRESSION: The nasal septum deviates to the left. The maxillary sinuses have mild mucosal thickening inferiorly bilaterally. The anterior right and posterior left ethmoid air cells have small amounts of mucus. Signed by: Shashank Martinez 07/09/2023 2:27 PM Dictation workstation: [id number] [facility] Work Phone: Radiology Study observation (narrative) [facility] Work Phone: CT Sinuses WO contrastOrdere d By: Shashank Martinez on 07-09-2023 [facility] Work Phone: LES-WITH REFLEX TO ENAon Nuclear Ab IF (S) [Titer] Negative Normal NEGATIVE [facility] Comment on above: Result Comment: The Antinuclear Antibody (LES) test was performed using indirect immunofluorescence assay with HEp-2 cells slide. Performed By: #### C RP #### [address] [address] C Reactive Protein, Serumon 10-02-2022 CRP [Mass/Vol] 0.19 mg/dL [facility] Work Phone: [phone] Comment on above: REF VALUE< 1.00 C-REACTIVE PROTEINon 023 C-REACTIVE PROTEIN 0.19 mg/dL Normal [facility] Comment on above: Result Comment: REF VALUE < 1.00 Performed By: #### C RP #### [address] [address] Laboratory - Serology - non- microon 10-02-2022 Nuclear Ab Hep2 substrate Ql (S) Negative NEGATIVE [facility] Work Phone: [phone] Comment on above: The Antinuclear Anti body (LES) test was performed using indirect immunofluorescence assay with HEp-2 cells slide. RHEUMATOID FACTORon 10-02-19 RHEUMATOID FACTOR 19 IU/mL High 0 - 15 [facility] [place] Comment on above: Performed By: #### R F #### [facility] [address] [place] [address] Rheumatoid Factor, Serum or Plasmaon 10-02-2022 Rheumatoid factor Nephelometry Qn (S) 19 {IU/mL} above high threshold 0 - 15 [facility] Work Phone: SEDIMENTATION RATE, ERYTHROC YTEon 10-02-2022 SEDIMENTATION RATE, ERYTHROCYTE 4 mm/h Normal 0 - 30 [facility] Comment on above: Performed By: #### C RP #### [address] [place] [address] Sedimentation Rate, Erythroc yteon 10-02-2022 ESR (Bld) [Velocity] 4 mm/h 0 - 30 [facility] Work Phone: Tobacco Screening.on 023 Adult depression screening assessment No -[facility] Work Phone: Fall risk assessment a) No falls within the last year [facility] Work Phone: Tobacco use status [facility] b) No M -[facility] Work Phone: Mamm - Screening Mammogram w / Tomosynthesison 08-29-2022 MG Breast Screening Please click on the link to view the study images Normal [facility] Work Phone: MG Breast Screening Normal [facility] Work Phone: Covid 19 Resultson 2 SARS-CoV-2 (COVID-19) RNA ALEXIS+probe Ql (Unsp spec) NEGATIVE COVID-19 Test Coronaviruses are common world-wide and are the cause of many common colds. SARS-COV2 is a new coronavirus that began circulating worldwide in 2019 so we are calling it COVID-19. It has been estimated that four out of five patients with COVID-19 will recover at home without the need for medical attention. Symptoms of COVID-19 may include cough, fever, shortness of breath, loss of taste or smell and other flu-like symptoms including chills, sore muscles, sore throat, and headache. Severe illness is more common in older people and people with other health problems such as high blood pressure, obesity, and immune system problems. If the test is positive, you have COVID-19. You will be contacted by the ordering physicians office and instructed to remain on home isolation, in accordance with CDC guidelines. You may also be contacted by the [facility] to see if any of your close contacts may have been exposed to the virus and need to quarantine. If the test is negative, you likely do not have COVID-19 at this time, but you still may have a different illness that can spread to other people (like Influenza, or the Flu) and could still be at risk for getting COVID-19. We recommend that you stay away from other people to limit the spread of illness until your symptoms are improving and you are fever-free for 24 hours without the use of fever lowering medications such as acetaminophen or ibuprofen. No test is 100% accurate so if you are still concerned you may have COVID-19, talk to your doctor about the need to continue to stay away from others. Medicines Unless your provider told you not to use the following: Acetaminophen (Tylenol and others) is generally safe. Anti-inflammatory medications, such as Ibuprofen (Advil or Motrin) or Naproxen (Aleve) can also be used. Oujs-ksn-aptwssy cough and cold medicines can be used according to the instructions on the package. Some juyb-una-nuetmno medicines also contain acetaminophen. Make sure you are not taking more than your recommended dose. For those not hospitalized, there is no specific treatment available for this illness. Antibiotics do not treat Coronaviruses. Follow-Up Follow up with your doctor by scheduling a virtual visit or consider follow-up at one of our urgent care fever clinics. If you are having difficulty breathing, or are very weak and having difficulty standing, this is a medical emergency. Call 911 or have someone take you to the nearest emergency room immediately. If possible, wear a facemask. Additional guidance from the CDC for patients who tested POSITIVE for COVID-19 How to isolate: Isolate yourself in a specific room at home and limit your contact with others. Use a separate bathroom from other members of the household, when possible. Leave home only to get essential medical care. Do not go to work, school or public areas. Avoid using public transportation, ride-sharing, or taxis. Restrict contact with pets and other animals. If you must care for your pet or be around animals while you are sick, wash your hands before and after your interaction and wear a facemask. Make sure that shared spaces in the home have good airflow, such as by an air conditioner or an opened window, weather permitting. Personal Hygiene Procedures: Wear a face mask when in the same room as other people or pets. If a face mask interferes with your breathing, others should wear a mask when sharing space with you. Frequent hand-washing: wash your hands with soap and water for at least 20 seconds. If soap and water are not available, use alcohol-based hand custodial laborer. Avoid touching your eyes, nose, and mouth with unwashed hands. Household Hygiene Procedures: Avoid sharing personal household items such as dishes, glassware, cups, eating utensils, towels or bedding with other people or pets in your home. After use, these items should be washed with soap and hot water. Disinfect all high-touch surfaces every day with antibacterial cleaning solutions such as Lysol wipes, bleach, cleansers, etc. High-touch surfaces include tabletops, doorknobs, bathroom fixtures, toilets, phones, keyboards, tablets and bedside tables. Immediately clean any surfaces that may have blood, poop or body fluids on them, using antibacterial cleaning solutions such as Lysol wipes, bleach, cleansers, etc. If clothing or bedding come into contact with blood, poop or body fluids, they should be washed immediately. Follow the directions on the laundry detergent and clothing labels but hot water is recommended when possible. Stopping home isolation precautions: If possible, consult your doctor before stopping home isolation precautions. According to the CDC, you can discontinue home isolation precautions when you have met both of these criteria: Your fever and respiratory symptoms have been gone for 24 pacheco (more content not included)... Normal [facility] INFLUENZA A/B, COVID 2019 PC R,SYMPTOMATICon 08-15-2022 INFLUENZA A, PCR Not detected Normal Not Detected [facility] Comment on above: Result Comment: Resp iratory virus testing is performed routinely by PCR for Influenza A/B and RSV. If Influenza and RSV PCR are negative, testing for parainfluenza 1,2,3 viruses and adenovirus is routinely performed for oncology inpatients and intensive care unit patients at [facility] and is available on request on other patients by calling Laboratory Client Services at [phone]. Not Detected results do not preclude Influenza A/B or RSV infections since the adequacy of sample collection or low viral burden may impact the clinical sensitivity of this test method. Performed By: #### C OINP #### [facility] [address] [place] [address] INFLUENZA B, PCR Not detected Normal Not Detected [facility] Comment on above: Result Comment: Resp iratory virus testing is performed routinely by PCR for Influenza A/B and RSV. If Influenza and RSV PCR are negative, testing for parainfluenza 1,2,3 viruses and adenovirus is routinely performed for oncology inpatients and intensive care unit patients at [facility] and is available on request on other patients by calling Laboratory Client Services at [phone] Not Detected results do not preclude Influenza A/B or RSV infections since the adequacy of sample collection or low viral burden may impact the clinical sensitivity of this test method. Performed By: #### C OINP #### [address] [place] [address] SARS-CoV-2 (COVID-19) RNA ALEXIS+probe Ql (Unsp spec) Not detected Normal Not Detected [facility] Comment on above: Result Comment: . This assay is designed to detect the ORF1a/b and E genes of SARS-CoV-2 via nucleic acid amplification. A Not Detected result does not preclude 2019-nCoV infection since the adequacy of sample collection and/or low viral burden may result in presence of viral nucleic acids below the clinical sensitivity of this test method. Fact sheet for providers: https://www.fda.gov/media/577476/download Fact sheet for patients: https://www.fda.gov/media/736307/download This test has received FDA Emergency Use Authorization (EUA) and has been verified for use by [facility] ([facility]). This test is only authorized for the duration of time that circumstances exist to justify the authorization of the emergency use of in vitro diagnostic tests for the detection of SARS-CoV-2 virus and/or diagnosis of COVID-19 infection under section 564(b)(1) of the Act, 21 U.S.C. 360bbb-3(b)(1), unless the authorization is terminated or revoked sooner. [facility] is certified under CLIA-88 as qualified to perform high complexity testing. Testing is performed in the [facility] laboratories located at [address] [place] [address]. Performed By: #### C OINP #### [address] [place] [address] INFLUENZA A/B, COVID 2019 PC R,SYMPTOMATICon 08-14-2022 Lab Specimen Source Nasal, Nasopharyngeal Normal [facility] Comment on above: Performed By: #### C OINP #### [facility] [id number] [place] [address]. [place] [address] INFLUENZA A/B, COVID 2019 PCR,SYMPTOMATIC Not detected See Below -[facility] Work Phone: Comment on above: Reference Range: Not Detected.This assay is designed to detect the ORF1a/b and E genes of SARS-CoV-2 via nucleic acid amplification. A Not Detected result does not preclude 2019-nCoV infection since the adequacy of sample collection and/or low viral burden may result in presence of viral nucleic acids below the clinical sensitivity of this test method. Fact sheet for providers: https://www.fda.gov/media/641929/download Fact sheet for patients: https://www.fda.gov/media/883660/download This test has received FDA Emergency Use Authorization (EUA) and has been verified for use by [facility] ([facility]). This test is only authorized for the duration of time that circumstances exist to justify the authorization of the emergency use of in vitro diagnostic tests for the detection of SARS-CoV-2 virus and/or diagnosis of COVID-19 infection under section 564(b)(1) of the Act, 21 U.S.C. 360bbb-3(b)(1), unless the authorization is terminated or revoked sooner.[facility] is certified under CLIA-88 as qualified to perform high complexity testing. Testing is performed in the [facility] laboratories located at [address] [place] [address]. Reference Range: Not Detected Respiratory virus testing is performed routinely by PCR for Influenza A/B and RSV. If Influenza and RSV PCR are negative, testing for parainfluenza 1,2,3 viruses and adenovirus is routinely performed for oncology inpatients and intensive care unit patients at [facility] and is available on request on other patients by calling Laboratory Client Services at [phone] Not Detected results do not preclude Influenza A/B or RSV infections since the adequacy of sample collection or low viral burden may impact the clinical sensitivity of this test method. SOURCE: Nasal, Nasop haryngealReference Range: Not Detected Respiratory virus testing is performed routinely by PCR for Influenza A/B and RSV. If Influenza and RSV PCR are negative, testing for parainfluenza 1,2,3 viruses and adenovirus is routinely performed for oncology inpatients and intensive care unit patients at [facility] and is available on request on other patients by calling Laboratory Client Services at [phone]. Not Detected results do not preclude Influenza A/B or RSV infections since the adequacy of sample collection or low viral burden may impact the clinical sensitivity of this test method. Provider Note - ED v3on 12-2 Provider Note - ED v3 Provider Note: Chart Review ED NOTES ED NOTES: Presents for evaluation of URI. Symptoms including sore throat, congestion, body aches, malaise, and headache have been present for several days and refractory to OTC meds. No fever, cough, chills, loss of taste/smell, nausea, vomiting, abdominal pain, CP, or SOB. No exacerbating factors. Has known exposure to flu and strep from grandchildren. HISTORY OF PRESENTING ILLNESS FREDI is a 66 year old Female and was seen by me at 14-Aug-2022 16:16. Triage Information: Most recent Vital Sign Value Date PAST MEDICAL HISTORY ALLERGIES/INTOLERANCES: No Known Allergies HEALTH HISTORY: No documented data. OUTPATIENT MEDICATIONS: Home Medications Review Status for Reconciliation: Complete Med Status: Patient Currently Takes Medications Drug Name: azithromycin 250 mg oral tablet Instructions: Take 2 tabs (500mg) x 1 days, then 1 tab (250mg) once daily x 4 days SIGNIFICANT EVENTS: No documented data. REVIEW OF SYSTEMS All other systems reviewed and are negative REVIEW OF SYSTEMS: Comments See HPI PHYSICAL EXAM CONSTITUTIONAL: Well appearing, well nourished, awake, alert, oriented to person, place, time/situation and in no apparent distress. HENMT: Airway patent, ears with clear tympanic membranes bilaterally. Nasal mucosa clear. Mouth with normal mucosa. Throat has posterior OP erythema, no oropharyngeal exudates and uvula is midline. Face with no lymph node enlargement. EYES: Clear bilaterally, pupils equal, round and reactive to light. CARDIOVASCULAR: Normal rate, regular rhythm. Heart sounds S1, S2. No murmurs, rubs or gallops. PMI non-displaced. RESPIRATORY: Breath sounds clear and equal bilaterally. NEUROLOGICAL: Alert and oriented, no focal deficits, no motor or sensory deficits. SKIN: Skin normal color for race, warm, dry and intact. No evidence of trauma. PSYCHIATRIC: Alert and oriented to person, place, time/situation. normal mood and affect. No apparent risk to self or others. CRITICAL CARE VITAL SIGNS: T PRBP SpO2O2(LPM) %FiO2 Method 14-Aug-2022 16:03:[id number] 95 MDM MDM/ED COURSE: Discussed Findings with: patient Data Reviewed: vital signs Treatment Plan: Rx Zpak. Swab obtained for flu/covid. Encouraged pt to trial otc cold remedies, push by mouth fluids and rest. Patient's clinical presentation is otherwise unremarkable at this time. Patient is discharged with instructions to follow-up with primary care or seek emergency medical attention for worsening symptoms or any new concerns. DISPOSITION Diagnosis/Annotation: ED Dx Name:Acute pharyngitis Code:J02.9 Disposition: discharged Type: home CONSULT CRITICAL CARE TIME Is this a critically ill patient: no Electronic Signatures for Addendum Section: Rudy Godoy ([employer]PO[employer] COATINGS INSTALLER-[facility]) (Signed Addendum 15-Aug-2022 08:41) Pt notified of flu/covid test results. Electronic Signatures: Rudy Godoy (EPOXY COATINGS INSTALLER-SEISMIC ENGINEER) (Signed 15-Aug-2022 08:40) Authored: ED Notes, HPI, PMH, ROS, PE, Results/Vital Signs, MDM/ED Course, Clinical Impression, Attestation, Chart Review, Scores Last Updated: 15-Aug-2022 08:41 by Rudy Godoy (EPO[employer] COATINGS INSTALLER-[facility]) Normal [facility] - Molecular patho logyon 06-20-2022 Noninvasive colorectal cancer DNA and occult blood screening Adal (Stl) [Interp] Negative Negative -[facility] Work Phone: Comment on above: [employer] (CLIA #:[id number])[address] [place] [address] [address] , Clinical Laboratory Medical DirectorNEGATIVE TEST RESULT. A negative Cologuard result indicates a low likelihood that a colorectal cancer (CRC) or advanced adenoma (adenomatous polyps with more advanced pre-malignant features) is present. The chance that a person with a negative Cologuard test has a colorectal cancer is less than 1 in 1500 (negative predictive value >99.9%) or has an advanced adenoma is less than 5.3% (negative predictive value 94.7%). These data are based on a prospective cross-sectional study of 10,000 individuals at average risk for colorectal cancer who were screened with both Cologuard and colonoscopy. (Paulino Roach al, N Engl J Med 2014;370(14):3271-5309) The normal value (reference range) for this assay is negative.COLOGUARD RE-SCREENING RECOMMENDATION: Periodic colorectal cancer screening is an important part of preventive healthcare for asymptomatic individuals at average risk for colorectal cancer. Following a negative Cologuard result, the [place] Cancer Society and U.S. Multi-Society Task Force screening guidelines recommend a Cologuard re-screening interval of 3 years. References: [place] Cancer Society Guideline for Colorectal Cancer Screening: https://www.cancer.org/cancer/kvfta-pscxql-auwxlr/detection-di agnosis-staging/acs-recommendations.html.; Michael DK, Camelia MAHARAJ, Fátima BurlesonK, Colorectal Cancer Screening: Recommendations for Physicians and Patients from the U.S. Multi-Society Task Force on Colorectal Cancer Screening , Am J Gastroenterology 2017; 112:9251-9392.TEST DESCRIPTION: Composite algorithmic analysis of stool DNA-biomarkers with hemoglobin immunoassay. Quantitative values of individual biomarkers are not reportable and are not associated with individual biomarker result reference ranges. Cologuard is intended for colorectal cancer screening of adults of either sex, 45 years or older, who are at average-risk for colorectal cancer (CRC). Cologuard has been approved for use by the U.S. FDA. The performance of Cologuard was established in a cross sectional study of average-risk adults aged 50-84. Cologuard performance in patients ages 45 to 49 years was estimated by sub-group analysis of near-age groups. Colonoscopies performed for a positive result may find as the most clinically significant lesion: colorectal cancer [4.0%], advanced adenoma (including sessile serrated polyps greater than or equal to 1cm diameter) [20%] or non- advanced adenoma [31%]; or no colorectal neoplasia [45%]. These estimates are derived from a prospective cross-sectional screening study of 10,000 individuals at average risk for colorectal cancer who were screened with both Cologuard and colonoscopy. (Paulino Roach al, N Engl J Med 2014;370(14):7317-6316.) Cologuard may produce a false negative or false positive result (no colorectal cancer or precancerous polyp present at colonoscopy follow up). A negative Cologuard test result does not guarantee the absence of CRC or advanced adenoma (pre-cancer). The current Cologuard screening interval is every 3 years. ([place] Cancer Society and U.S. Multi-Society Task Force). Cologuard performance data in a 10,000 patient pivotal study using colonoscopy as the reference method can be accessed at the following location: www.[employer].Slanissue/results. Additional description of the Cologuard test process, warnings and precautions can be found at www.cologuard.com. Medicare Annual Wellness Vis iton 06-07-2022 Medicare Annual Wellness Visit *Chief Complaint medicare wellness, med check, pt c/o feeling nauseated frequently History of Present Illness The patient is being seen for the subsequent annual wellness visit. Past Medical, Surgical and Family History: reviewed and updated in chart. Interval History: Patient has not been hospitalized previously. Medications and Supplements: Review of all medications by a prescribing practitioner or clinical pharmacist (such as prescriptions, OTCs, herbal therapies and supplements) documented in the medical record. No, the patient is not using opioids. Patient Self Assessment of Health Status: fair. Tobacco use: Non-User Alcohol use: Non-User Illicit drug use: Non-User Current diet: well balanced diet, does consume adequate fluids and does consume caffeine. Exercise Frequency: regularly. Depression/Suicide Screening: . During the past 2 weeks, the patient has not felt down, depressed or hopeless. During the past 2 weeks, the patient has not felt little interest or pleasure in doing things. Hearing Impairment: none. Cognitive Impairment: No cognitive impairment observed. Bathing: performs independently. Dressing: performs independently. Walking: performs independently. Bowels: continent. Bladder: continent. Managing Finances: performs independently. Shopping: performs independently. Managing Medications: performs independently. Housework / Basic Home Maintenance: performs independently. Falls Risk Screening:. FREDI has not fallen in the last 6 months. Home safety risk factors: loose rugs. Advance directives:. Advanced Care Planning discussed and documented advance care plan or surrogate decision maker documented in the medical record. Patient has living will. Patient has healthcare POA. Patient's End of Life Decisions: I agree to follow the patient's decisions. Concerns with the patient's end of life decisions: DNR. 66 YOF presents for med check and AWV. DM2 W/NEUROPATHY: Last A1C 6.6 03/27/22. No longer taking metformin. Blood sugar at home has averaged around 120. Lyrica effective at reducing neuropathy which consists burning/pain BL feet and some legs. She does daily foot exams. Saw eye doctor about 6 months ago. Needs refill on Lyrica, OARRS reviewed and appropriate, she would like to decrease dose to once daily. HYPERLIPIDEMIA: Rosuvastatin, compliant, no SE. Lipids good except triglycerides 200 03/27/22. HERPES: [facility] put her on acyclovir chronically and she has not had a breakout was 4-5 years ago. BACK ARTHITIS: Celecoxib effective at reducing pain. No SE. GERD: Omeprazole effective. No SE. MIGRAINES: Propranolol and Excedrin migraine are effective at aborting. Symptoms of her migraines include nausea/visual changes/photophobia. SEASONAL ALLERGIES: Loratadine effective. Stable. LEG CRAMPS: Takes potassium for leg cramps for the past 2 months. NAUSEA: 2 weeks of daily nausea, nausea is constant, no vomiting, normal BM, no urinary issues, mint tea has helped, no change in diet. Feels it is associated with her excessive post nasal drip from allergies currently. History of thyroid nodule which was biopsied and tracked for years w/no growth, deemed stable with no further surveillance required per patient. Was supposed to have colonoscopy last year on her birthday. She would like cologuard. Would not like referral to [facility] for women's care at this time. Needs mammogram. Had DEXA about 1 year ago and it was unremarkable. No other concerns, feeling well. 6CIT score of 2. [place] score of 11. 06/29/22: Cologuard negative, due again 2024. Review of Systems Review of Systems: Constitutional: no fever, no unintentional weight change Eye: no recent visual problem Respiratory: no shortness of breath Cardiac: no chest pain GI: no reflux, nausea, no vomiting, no diarrhea, no constipation, no heartburn, no abdominal pain Neurological: no headache *Active Problems Arthritis (716.90) (M19.90) Class 1 obesity with body mass index (BMI) of 32.0 to 32.9 in adult (278.00,V85.32) (E66.9,Z68.32) Controlled diabetes mellitus with diabetic neuropathy (250.60,357.2) (E11.40) Encounter for screening mammogram for breast cancer (V76.12) (Z12.31) GERD (gastroesophageal reflux disease) (530.81) (K21.9) Herpes simplex virus (HSV) infection (054.9) (B00.9) Hyperlipidemia (272.4) (E78.5) Leg cramps (729.82) (R25.2) Long-term use of high-risk medication (V58.69) (Z79.899) Migraines (346.90) (G43.909) Seasonal allergies (477.9) (J30.2) Surgical History History of Carpal tunnel surgery B/L History of section x3 History of Hysterectomy total History of Tenotomy left wrist History of Tonsillectomy with adenoidectomy Family History Family history of hypertension (V17.49) (Z82.49) Family history of stent (V19.8) (Z84.89) Family history of type 2 diabetes mellitus (V18.0) (Z83.3) Family history of asthma (V17.5) (Z82.5) Family history of chronic obstructive pulmon (more content not included)... Normal [facility] Tobacco Screening.on 022 Tobacco use status [facility] b) No M P-[facility] Work Phone: OPIATE/OPIOID/BENZO EXTENDED PRESCRIPTION COMPLIANCEon 03-29-2022 CODEINE <50 Normal Cutoff <50 [facility] Comment on above: Performed By: #### D SBOP #### [facility] [address] [place] [address] EDDP,U <25 Normal Cutoff <25 [facility] Comment on above: Result Comment: The performance characteristics of the Methadone Confirmation, Urine has been validated by the individual laboratory site where testing is performed. It has not been cleared or approved by the FDA. However the FDA has determined that such clearance or approval is not necessary. Our Laboratory is certified under the Clinical Laboratory Improvement Amendments of 1988 (CLIA) as qualified to perform high complexity clinical laboratory testing. Performed By: #### D SBOP #### [facility] [address] [place] [address] FENTANYL CONFIRM,U <2.5 Normal Cutoff<2.5 [facility] Comment on above: Performed By: #### D SBOP #### [facility] [id number] [place] [address] HYDROCODONE <25 Normal Cutoff <25 [facility] Comment on above: Performed By: #### D SBOP #### [facility] [address] [place] [address] METHADONE,U <25 Normal Cutoff <25 [facility] Comment on above: Performed By: #### D SBOP #### [facility] [id number] [place] [address] NORFENTANYL CONFIRM,U <2.5 Normal Cutoff<2.5 [facility] Comment on above: Result Comment: The performance characteristics of the Fentanyl Confirmation, Urine has been validated by the individual laboratory site where testing is performed. It has not been cleared or approved by the FDA. However the FDA has determined that such clearance or approval is not necessary. Our Laboratory is certified under the Clinical Laboratory Improvement Amendments of 1988 (CLIA) as qualified to perform high complexity clinical laboratory testing. Performed By: #### D SBOP #### [facility] [address] [place] [address] NOROXYCODONE <25 Normal Cutoff <25 [facility] Comment on above: Performed By: #### D SBOP #### ON LICENSE OF [facility] [address] [place] [address] O-DESMETHYLTRAMADOL,U <50 Normal Cutoff <50 [facility] Comment on above: Result Comment: The performance characteristics of the Tramadol Confirmation, Urine has been validated by the individual laboratory site where testing is performed. It has not been cleared or approved by the FDA. However the FDA has determined that such clearance or approval is not necessary. Our Laboratory is certified under the Clinical Laboratory Improvement Amendments of 1988 (CLIA) as qualified to perform high complexity clinical laboratory testing. Performed By: #### D SBOP #### ON [facility] OF [facility] [address] [place] [address] OXYMORPHONE <25 Normal Cutoff <25 [facility] Comment on above: Result Comment: The performance characteristics of the Opiate Confirmation, Urine has been validated by the individual laboratory site where testing is performed. It has not been cleared or approved by the FDA. However the FDA has determined that such clearance or approval is not necessary. Our Laboratory is certified under the Clinical Laboratory Improvement Amendments of 1988 (CLIA) as qualified to perform high complexity clinical laboratory testing. Performed By: #### D SBOP #### [facility] [address] [place] [address] TRAMADOL CONFIRM,U <50 Normal Cutoff <50 [facility] Comment on above: Performed By: #### D SBOP #### [facility] [address] [place] [address] ZOLPIDEM METABOLITE[ZCA] ,U <25 Normal Cutoff <25 [facility] Comment on above: Result Comment: The performance characteristics of the Zolpidem Confirmation, Urine has been validated by the individual laboratory site where testing is performed. It has not been cleared or approved by the FDA. However the FDA has determined that such clearance or approval is not necessary. Our Laboratory is certified under the Clinical Laboratory Improvement Amendments of 1988 (CLIA) as qualified to perform high complexity clinical laboratory testing. Performed By: #### D SBOP #### [facility] [address] [place] [address] ZOLPIDEM,URINE <25 Normal Cutoff <25 [facility] Comment on above: Performed By: #### D SBOP #### [facility] [address] [place] [address] 6-ACETYLMORPHINE <25 Normal Cutoff <25 [facility] Comment on above: Performed By: #### D SBOP #### [facility] [address] [place] [address] 7-AMINOCLONAZEPAM <25 Normal Cutoff <25 [facility] [place] Comment on above: Performed By: #### D SBOP #### [facility] [address] [place] [address] ALPHA-HYDROXYALPRAZOLAM <25 Normal Cutoff <25 [facility] Comment on above: Performed By: #### D SBOP #### [facility] [address] [place] [address] ALPHA-HYDROXYMIDAZOLAM <25 Normal Cutoff <25 [facility] Comment on above: Performed By: #### D SBOP #### [facility] [address] [place] [address] ALPRAZOLAM <25 Normal Cutoff <25 [facility] Comment on above: Performed By: #### D SBOP #### [facility] [address] [place] [address] CHLORDIAZEPOXIDE <25 Normal Cutoff <25 [facility] Comment on above: Performed By: #### D SBOP #### [facility] [address] [place] [address] CLONAZEPAM <25 Normal Cutoff <25 [facility] Comment on above: Performed By: #### D SBOP #### [facility] [address] [place] [address] DIAZEPAM <25 Normal Cutoff <25 [facility] Comment on above: Performed By: #### D SBOP #### [facility] [address] [place] [address] HYDROMORPHONE <25 Normal Cutoff <25 [facility] [place] Comment on above: Performed By: #### D SBOP #### [facility] [address] [place] [address] LORAZEPAM <25 Normal Cutoff <25 [facility] Comment on above: Performed By: #### D SBOP #### [facility] [address] [place] [address] MIDAZOLAM <25 Normal Cutoff <25 [facility] Comment on above: Performed By: #### D SBOP #### [place] [address] [place] [address] MORPHINE <50 Normal Cutoff <50 [facility] Comment on above: Performed By: #### D SBOP #### [facility] [address] [place] [address] NORDIAZEPAM <25 Normal Cutoff <25 [facility] Comment on above: Performed By: #### D SBOP #### [facility] [address] [place] [address] NORHYDROCODONE <25 Normal Cutoff <25 [facility] Comment on above: Performed By: #### D SBOP #### [facility] [address] [place] [address] OXAZEPAM <25 Normal Cutoff <25 [facility] Comment on above: Performed By: #### D SBOP #### [facility] [address] [place] [address] OXYCODONE <25 Normal Cutoff <25 [facility] Comment on above: Performed By: #### D SBOP #### [facility] [address] [place] [address] TEMAZEPAM <25 Normal Cutoff <25 [facility] Comment on above: Result Comment: The performance characteristics of the Benzodiazepine Confirmation, Urine has been validated by the individual laboratory site where testing is performed. It has not been cleared or approved by the FDA. However the FDA has determined that such clearance or approval is not necessary. Our Laboratory is certified under the Clinical Laboratory Improvement Amendments of 1988 (CLIA) as qualified to perform high complexity clinical laboratory testing. Performed By: #### D SBOP #### [facility] [address] [place] [address] OPIATE/OPIOID/BENZO EXTENDED PRESCRIPTION COMPLIANCEon 03-28-2022 AMPHETAMINE SCREEN,U Negative Normal NEGATIVE [facility] Comment on above: Result Comment: CUTO FF LEVEL: 500 NG/ML Cross-reactivity has been reported with high concentrations of the following drugs: buproprion, chloroquine, chlorpromazine, ephedrine, mephentermine, fenfluramine, phentermine, phenylpropanolamine, pseudoephedrine, and propranolol. Performed By: #### D SBOP #### ON LICENSE OF [facility] [address] [place] [address] BARBITURATES SCREEN,U Negative Normal NEGATIVE [facility] Comment on above: Result Comment: CUTO FF LEVEL: 200 NG/ML Performed By: #### D SBOP #### [facility] [address] [place] [address] CANNABINOIDS SCREEN,U Negative Normal NEGATIVE [facility] Comment on above: Result Comment: CUTO FF LEVEL: 50 NG/ML Performed By: #### D SBOP #### [facility] [address] [place] [address] COCAINE METABOLITE SCREEN,U Negative Normal NEGATIVE [facility] Comment on above: Result Comment: CUTO FF LEVEL: 150 NG/ML Performed By: #### D SBOP #### [facility] [address] [place] [id number] Creatinine [Mass/Vol] 70.6 mg/dL Normal [facility] Comment on above: Result Comment: A ur ine creatinine result >= 20 mg/dL is considered valid without suspicion of dilution. Samples with results below this range will automatically reflex to specific gravity testing to verify specimen integrity. Performed By: #### D SBOP #### [place] [address] [place] [id number] DRUG SCREEN COMMENT. SEE BELOW Normal [facility] Comment on above: Result Comment: Drug screen results are presumptive and should not be used to assess compliance with prescribed medication. Definitive confirmatory drug testing has been added to this sample for any positive screen result and will be reported separately. . Toxicology screening results are reported qualitatively. The concentration must be greater than or equal to the cutoff to be reported as positive. The concentration at which the screening test can detect an individual drug or metabolite varies. The absence of expected drug(s) and/or drug metabolite(s) may indicate non-compliance, inappropriate timing of specimen collection relative to drug administration, poor drug absorption, diluted/adulterated urine, or limitations of testing. For medical purposes only; not valid for forensic use. . Interpretive questions should be directed to the laboratory medical directors. Performed By: #### D SBOP #### ON LICENSE OF [facility] [address] [place] [address] PCP SCREEN,U Negative Normal NEGATIVE [facility] Comment on above: Result Comment: CUTO FF LEVEL: 25 NG/ML Cross-reactivity has been reported with dextromethorphan. Performed By: #### D SBOP #### [facility] [address] [place] [address] CBC AND DIFFERENTIALon 03-27 Basophils (Bld) [#/Vol] 0.00 10*3/uL Normal 0.00 - 0.1 0 [facility] Comment on above: Performed By: #### C BCDF #### [address] [address] Eosinophils (Bld) [#/Vol] 0.10 10*3/uL Normal 0.00 - 0.70 [facility] Comment on above: Performed By: #### C BCDF #### [address] [address] Eosinophils/100 WBC (Bld) 2.6 % Normal 0.0 - 6.0 [facility] Comment on above: Performed By: #### C BCDF #### [address] [address] Lymphocytes (Bld) [#/Vol] 1.80 10*3/uL Normal 1.20 - 4.80 [facility] Comment on above: Performed By: #### C BCDF #### [address] [address] Monocytes (Bld) [#/Vol] 0.40 10*3/uL Normal 0.10 - 1.0 0 [facility] Comment on above: Performed By: #### C BCDF #### [address] [address] Neutrophils (Bld) [#/Vol] 3.40 10*3/uL Normal 1.20 - 7.70 [facility] Comment on above: Result Comment: Perc ent differential counts (%) should be interpreted in the context of the absolute cell counts (cells/L). Performed By: #### C BCDF #### [address] [address] NUCLEATED RBC 0.1 /100 WBC Normal [facility] Comment on above: Performed By: #### C BCDF #### [address] [address] RBC 4.52 x10E12/L Normal 4.00 - 5.20 [facility] Comment on above: Performed By: #### C BCDF #### [address] [address] COMPREHENSIVE PANELon 2021 Albumin [Mass/Vol] 4.1 g/dL Normal 3.4 - 5.0 [facility] Comment on above: Performed By: #### C MP #### [address] [address] ALP [Catalytic activity/Vol] 67 U/L Normal 33 - 136 [facility] Work Phone: [phone] Comment on above: Performed By: #### C MP #### [address] [address] ALT [Catalytic activity/Vol] 19 U/L Normal 7 - 45 [facility] Comment on above: Result Comment: Mae ents treated with Sulfasalazine may generate falsely decreased results for ALT. Performed By: #### C MP #### [address] [address] Anion gap [Moles/Vol] 9 mmol/L Low 10 - 20 [facility] Work Phone: [phone] Comment on above: Performed By: #### C MP #### [address] [address] AST [Catalytic activity/Vol] 19 U/L Normal 9 - 39 [facility] Comment on above: Performed By: #### C MP #### [address] [address] Bilirubin [Mass/Vol] 0.6 mg/dL Normal 0.0 - 1.2 [facility] Work Phone: [phone] Comment on above: Performed By: #### C MP #### [address] [address] Calcium [Mass/Vol] 9.3 mg/dL Normal 8.6 - 10.3 [facility] Work Phone: [phone] Comment on above: Performed By: #### C MP #### [address] [address] Chloride [Moles/Vol] 107 mmol/L Normal 98 - 107 [facility] Work Phone: [phone] Comment on above: Performed By: #### C MP #### [address] [address] Creatinine [Mass/Vol] 0.68 mg/dL Normal 0.50 - 1.05 [facility] Work Phone: [phone] Comment on above: Reference Range: 0.5 0 - 1.05 Performed By: #### C MP #### [address] [address] eGFR FEMALE >90 Normal >90 [facility] Comment on above: Result Comment: CALC ULATIONS OF ESTIMATED GFR ARE PERFORMED USING THE 2020 CKD-EPI STUDY REFIT EQUATION WITHOUT THE RACE VARIABLE FOR THE IDMS-TRACEABLE CREATININE METHODS. https://jasn.asnjournals.org/content/early//ASN.2020 156023 Performed By: #### C MP #### [address] [address] Glucose [Mass/Vol] 132 mg/dL High 74 - 99 [facility] Work Phone: [phone] Comment on above: Performed By: #### C MP #### [address] [address] HCO3 (Bld) [Moles/Vol] 31 mmol/L Normal 21 - 32 [facility] Comment on above: Performed By: #### C MP #### [address] [address] Potassium [Moles/Vol] 4.4 mmol/L Normal 3.5 - 5.3 [facility] Work Phone: [phone] Comment on above: Performed By: #### C MP #### [address] [address] Protein [Mass/Vol] 6.5 g/dL Normal 6.4 - 8.2 [facility] Work Phone: [phone] Comment on above: Performed By: #### C MP #### [place] [id number] Sodium [Moles/Vol] 143 mmol/L Normal 136 - 145 [facility] Work Phone: [phone] Comment on above: Performed By: #### C MP #### [place] [id number] Urea nitrogen [Mass/Vol] 18 mg/dL Normal 6 - 23 [facility] Work Phone: [phone] Comment on above: Performed By: #### C MP #### [place] [id number] Complete Blood Count + Diffe rentialon 03-27-2022 Basophils/100 WBC (Bld) 0.7 % Normal 0.0 - 2.0 [facility] Work Phone: [phone] Comment on above: Performed By: #### C BCDF #### [address] [address] Erythrocyte distribution width (RBC) [Ratio] 13.2 % Normal 11.5 - 14.5 [facility] Work Phone: [phone] Comment on above: Reference Range: 11. 5 - 14.5 Performed By: #### C BCDF #### [address] [address] Hematocrit (Bld) [Volume fraction] 41.3 % Normal 36.0 - 46.0 [facility] Work Phone: [phone] Comment on above: Reference Range: 36. 0 - 46.0 Performed By: #### C BCDF #### [address] [address] Hemoglobin (Bld) [Mass/Vol] 13.7 g/dL Normal 12.0 - 16.0 [facility] Work Phone: [phone] Comment on above: Reference Range: 12. 0 - 16.0 Performed By: #### C BCDF #### [address] [address] Lymphocytes/100 WBC (Bld) 31.1 % Normal 13.0 - 44.0 [facility] Work Phone: [phone] Comment on above: Reference Range: 13. 0 - 44.0 Performed By: #### C BCDF #### [address] [address] MCHC (RBC) [Mass/Vol] 33.2 g/dL Normal 32.0 - 36.0 [facility] Work Phone: [phone] Comment on above: Reference Range: 32. 0 - 36.0 Performed By: #### C BCDF #### [address] [address] MCV (RBC) [Entitic vol] 91 fL Normal 80 - 100 [facility] Work Phone: [phone] Comment on above: Performed By: #### C BCDF #### [address] [address] Monocytes/100 WBC (Bld) 7.4 % Normal 2.0 - 10.0 [facility] Work Phone: [phone] Comment on above: Performed By: #### C BCDF #### [address] [address] Neutrophils/100 WBC (Bld) 58.2 % Normal 40.0 - 80.0 [facility] Work Phone: [phone] Comment on above: Reference Range: 40. 0 - 80.0 Performed By: #### C BCDF #### [address] [address] Platelets (Bld) [#/Vol] 202 10*3/uL Normal 150 - 450 [facility] Work Phone: [phone] Comment on above: Performed By: #### C BCDF #### [address] [address] WBC (Bld) [#/Vol] 5.8 10*3/uL Normal 4.4 - 11.3 [facility] Work Phone: [phone] Comment on above: Performed By: #### C BCDF #### [place] [address] [place] [address] RBC (Bld) [#/Vol] 4.52 {x10E12/L} See Below [facility] Work Phone: [phone] Comment on above: Reference Range: 4.0 0 - 5.20 Complete Blood Count + Differential 0.00 {x10E9/L} See Below [facility] Work Phone: [phone] Comment on above: Reference Range: 0.0 0 - 0.10 Complete Blood Count + Differential 0.10 {x10E9/L} See Below [facility] Work Phone: [phone] Comment on above: Reference Range: 0.0 0 - 0.70 Complete Blood Count + Differential 0.40 {x10E9/L} See Below [facility] Work Phone: [phone] Comment on above: Reference Range: 0.1 0 - 1.00 Complete Blood Count + Differential 1.80 {x10E9/L} See Below [facility] Work Phone: [phone] Comment on above: Reference Range: 1.2 0 - 4.80 Complete Blood Count + Differential 3.40 {x10E9/L} See Below [facility] Work Phone: [phone] Comment on above: Reference Range: 1.2 0 - 7.70 Percent differential counts (%) should be interpreted in the context of the absolute cell counts (cells/L). Complete Blood Count + Differential 2.6 % 0.0 - 6.0 [facility] Work Phone: [phone] Complete Blood Count + Differential 0.1 {/100_WBC} [facility] Work Phone: [phone] Hemoglobin A1Con 03-27-2022 Glucose [Mass/Vol] 143 mg/dL Normal [facility] Work Phone: [phone] Comment on above: Performed By: #### H BA1E #### [address] [address] HbA1c (Bld) [Mass fraction] 6.6 % Abnormal -[facility] Work Phone: Comment on above: Diagnosis of Diabete s-Adults Non-Diabetic: < or = 5.6% Increased risk for developing diabetes: 5.7-6.4% Diagnostic of diabetes: > or = 6.5%. Monitoring of Diabetes Age (y) Therapeutic Goal (%) Adults: >18 <7.0 Pediatrics: 13-18 <7.5 7-12 <8.0 0- 6 7.5-8.5 [place] [employer]. Diabetes Care 33(S1), Aug 2009. Result Comment: Diag nosis of Diabetes-Adults Non-Diabetic: < or = 5.6% Increased risk for developing diabetes: 5.7-6.4% Diagnostic of diabetes: > or = 6.5% . Monitoring of Diabetes Age (y) Therapeutic Goal (%) Adults: >18 <7.0 Pediatrics: 13-18 <7.5 7-12 <8.0 0- 6 7.5-8.5 [place] [employer]. Diabetes Care 33(S1), Aug 2009. Performed By: #### H BA1E #### [address] [address] LIPID PANEL (CORONARY RISK 2 )on 03-27-2022 Cholesterol in VLDL [Mass/Vol] 40 mg/dL Normal 0 - 40 [facility] Comment on above: Performed By: #### L IPID #### [address] [address] NON-HDL CHOLESTEROL 139 mg/dL Normal [facility] Comment on above: Result Comment: AGE DESIRABLE BORDERLINE HIGH HIGH VERY HIGH 0-19 Y 0 - 119 120 - 144 >/= 145 >/= 160 20-24 Y 0 - 149 150 - 189 >/= 190 ---- >24 Y 30 MG/DL ABOVE LDL CHOLESTEROL GOAL . Performed By: #### L IPID #### [address] [address] Laboratory - Chemistry and C hemistry - challengeon 03-27-2022 Creatinine (Body fld) [Mass/Vol] 70.6 mg/dL [facility] Work Phone: Comment on above: A urine creatinine r esult >= 20 mg/dL is considered valid without suspicion of dilution. Samples with results below this range will automatically reflex to specific gravity testing to verify specimen integrity. Albumin BCP dye [Mass/Vol] 4.1 g/dL 3.4 - 5.0 [facility] Work Phone: ALT With P-5'-P [Catalytic activity/Vol] 19 U/L 7 - 45 [facility] Work Phone: Comment on above: Patients treated wit h Sulfasalazine may generate falsely decreased results for ALT. AST With P-5'-P [Catalytic activity/Vol] 19 U/L 9 - 39 [facility] Work Phone: CO2 [Moles/Vol] 31 mmol/L 21 - 32 [facility] Work Phone: Laboratory - Drug toxicology on 03-27-2022 1-Hydroxymidazolam Confirm (U) [Mass/Vol] <25 Cutoff <25 [facility] Work Phone: 7-Lxqztfbsdi-8,5-Dimeth yl-3,3-Diphenylpyrrolid ine (EDDP) Confirm (U) [Mass/Vol] <25 Cutoff <25 [facility] Work Phone: Comment on above: The performance rosetta acteristics of the Methadone Confirmation, Urine has been validated by the individual laboratory site where testing is performed. It has not been cleared or approved by the FDA. However the FDA has determined that such clearance or approval is not necessary. Our Laboratory is certified under the Clinical Laboratory Improvement Amendments of 1988 (CLIA) as qualified to perform high complexity clinical laboratory testing. 6-Monoacetylmorphine (6-VIKTORIYA) Confirm (U) [Mass/Vol] <25 Cutoff <25 [facility] Work Phone: 7-Aminoclonazepam Confirm (U) [Mass/Vol] <25 Cutoff <25 [facility] Work Phone: Alpha hydroxyalprazolam Confirm (U) [Mass/Vol] <25 Cutoff <25 [facility] Work Phone: [phone] ALPRAZolam Confirm (U) [Mass/Vol] <25 Cutoff <25 [facility] Work Phone: [phone] Amphetamines Screen Ql (U) Negative NEGATIVE [facility] Work Phone: [phone] Comment on above: CUTOFF LEVEL: 500 NG /ML Cross-reactivity has been reported with high concentrations of the following drugs: buproprion, chloroquine, chlorpromazine, ephedrine, mephentermine, fenfluramine, phentermine, phenylpropanolamine, pseudoephedrine, and propranolol. Barbiturates Screen Ql (U) Negative NEGATIVE [facility] Work Phone: [phone] Comment on above: CUTOFF LEVEL: 200 NG /ML Benzoylecgonine Screen Ql (U) Negative NEGATIVE [facility] Work Phone: Comment on above: CUTOFF LEVEL: 150 NG /ML Cannabinoids Screen Ql (U) Negative NEGATIVE [facility] Work Phone: Comment on above: CUTOFF LEVEL: 50 NG/ ML chlordiazePOXIDE Confirm (U) [Mass/Vol] <25 Cutoff <25 [facility] Work Phone: [phone] clonazePAM Confirm (U) [Mass/Vol] <25 Cutoff <25 [facility] Work Phone: [phone] Codeine Confirm (U) [Mass/Vol] <50 Cutoff <50 [facility] Work Phone: [phone] diazePAM Confirm (U) [Mass/Vol] <25 Cutoff <25 [facility] Work Phone: [phone] fentaNYL Confirm (U) [Mass/Vol] <2.5 Cutoff<2.5 [facility] Work Phone: [phone] HYDROcodone Confirm (U) [Mass/Vol] <25 Cutoff <25 [facility] Work Phone: [phone] HYDROmorphone Confirm (U) [Mass/Vol] <25 Cutoff <25 [facility] Work Phone: LORazepam Confirm (U) [Mass/Vol] <25 Cutoff <25 [facility] Work Phone: Methadone Confirm (U) [Mass/Vol] <25 Cutoff <25 [facility] Work Phone: Midazolam Confirm (U) [Mass/Vol] <25 Cutoff <25 [facility] Work Phone: Morphine Confirm (U) [Mass/Vol] <50 Cutoff <50 [facility] Work Phone: Nordiazepam Confirm (U) [Mass/Vol] <25 Cutoff <25 [facility] Work Phone: Norfentanyl Confirm (U) [Mass/Vol] <2.5 Cutoff<2.5 [facility] Work Phone: Comment on above: The performance rosetta acteristics of the Fentanyl Confirmation, Urine has been validated by the individual laboratory site where testing is performed. It has not been cleared or approved by the FDA. However the FDA has determined that such clearance or approval is not necessary. Our Laboratory is certified under the Clinical Laboratory Improvement Amendments of 1988 (CLIA) as qualified to perform high complexity clinical laboratory testing. Norhydrocodone Confirm (U) [Mass/Vol] <25 Cutoff <25 [facility] Work Phone: Noroxycodone Confirm (U) [Mass/Vol] <25 Cutoff <25 [facility] Work Phone: Nortramadol (U) [Mass/Vol] <50 Cutoff <50 [facility] Work Phone: Comment on above: The performance rosetta acteristics of the Tramadol Confirmation, Urine has been validated by the individual laboratory site where testing is performed. It has not been cleared or approved by the FDA. However the FDA has determined that such clearance or approval is not necessary. Our Laboratory is certified under the Clinical Laboratory Improvement Amendments of 1988 (CLIA) as qualified to perform high complexity clinical laboratory testing. Oxazepam Confirm (U) [Mass/Vol] <25 Cutoff <25 [facility] Work Phone: [phone] oxyCODONE Confirm (U) [Mass/Vol] <25 Cutoff <25 [facility] Work Phone: oxyMORphone Confirm (U) [Mass/Vol] <25 Cutoff <25 [facility] Work Phone: Comment on above: The performance rosetta acteristics of the Opiate Confirmation, Urine has been validated by the individual laboratory site where testing is performed. It has not been cleared or approved by the FDA. However the FDA has determined that such clearance or approval is not necessary. Our Laboratory is certified under the Clinical Laboratory Improvement Amendments of 1988 (CLIA) as qualified to perform high complexity clinical laboratory testing. Phencyclidine Ql (U) Negative NEGATIVE [facility] Work Phone: Comment on above: CUTOFF LEVEL: 25 NG/ ML Cross-reactivity has been reported with dextromethorphan. Temazepam Confirm (U) [Mass/Vol] <25 Cutoff <25 [facility] Work Phone: Comment on above: The performance rosetta acteristics of the Benzodiazepine Confirmation, Urine has been validated by the individual laboratory site where testing is performed. It has not been cleared or approved by the FDA. However the FDA has determined that such clearance or approval is not necessary. Our Laboratory is certified under the Clinical Laboratory Improvement Amendments of 1988 (CLIA) as qualified to perform high complexity clinical laboratory testing. traMADol Confirm (U) [Mass/Vol] <50 Cutoff <50 [facility] Work Phone: Zolpidem (U) [Mass/Vol] <25 Cutoff <25 M [facility] Work Phone: Lipid Panelon 03-27-2022 Cholesterol [Mass/Vol] 186 mg/dL Normal 0 - 199 [facility] Work Phone: Comment on above: . AGE DESIRABLE BORD HUSEYIN HIGH HIGH 0-19 Y 0 - 169 170 - 199 >/= 200 20-24 Y 0 - 189 190 - 224 >/= 225 >24 Y 0 - 199 200 - 239 >/= 240 All ranges are based on fasting samples. Specific therapeutic targets will vary based on patient-specific cardiac risk.. Pediatric guidelines reference:Pediatrics 2011, 128(S5). Adult guidelines reference: NCEP ATPIII Guidelines, ISABEL 2001, 258:2486-97. Venipuncture immediately after or during the administration of Metamizole may lead to falsely low results. Testing should be performed immediately prior to Metamizole dosing. Result Comment: . AGE DESIRABLE BORDERLINE HIGH HIGH 0-19 Y 0 - 169 170 - 199 >/= 200 20-24 Y 0 - 189 190 - 224 >/= 225 >24 Y 0 - 199 200 - 239 >/= 240 All ranges are based on fasting samples. Specific therapeutic targets will vary based on patient-specific cardiac risk. . Pediatric guidelines reference:Pediatrics 2011, 128(S5). Adult guidelines reference: NCEP ATPIII Guidelines, ISABEL 2001, 258:2486-97 . Venipuncture immediately after or during the administration of Metamizole may lead to falsely low results. Testing should be performed immediately prior to Metamizole dosing. Performed By: #### L IPID #### [address] [address] Cholesterol in HDL [Mass/Vol] 47.0 mg/dL Normal [facility] Work Phone: Comment on above: . AGE VERY LOW LOW N ORMAL HIGH 0-19 Y < 35 < 40 40-45 ---- 20-24 Y ---- < 40 >45 ---- >24 Y ---- < 40 40-60 >60. Result Comment: . AGE VERY LOW LOW NORMAL HIGH 0-19 Y < 35 < 40 40-45 ---- 20-24 Y ---- < 40 >45 ---- >24 Y ---- < 40 40-60 >60 . Performed By: #### L IPID #### [address] [address] Cholesterol in LDL [Mass/Vol] 99 mg/dL Normal 0 - 99 [facility] Work Phone: Comment on above: . NEAR BORD AGE OVI RABLE OPTIMAL HIGH HIGH VERY HIGH 0-19 Y 0 - 109 --- 110-129 >/= 130 ---- 20-24 Y 0 - 119 --- 120-159 >/= 160 ---- >24 Y 0 - 99 100-129 130-159 160-189 >/=190. Result Comment: . NEAR BORD AGE DESIRABLE OPTIMAL HIGH HIGH VERY HIGH 0-19 Y 0 - 109 --- 110-129 >/= 130 ---- 20-24 Y 0 - 119 --- 120-159 >/= 160 ---- >24 Y 0 - 99 100-129 130-159 160-189 >/=190 . Performed By: #### L IPID #### [address] [address] Cholesterol.total/Elsie sterol in HDL [Mass ratio] 4.0 {ratio} Normal [facility] Work Phone: Comment on above: REF VALUESDESIRABLE < 3.4HIGH RISK > 5.0 Result Comment: REF VALUES DESIRABLE < 3.4 HIGH RISK > 5.0 Performed By: #### L IPID #### [address] [address] Triglyceride [Mass/Vol] 200 mg/dL High 0 - 149 M [facility] Work Phone: Comment on above: . AGE DESIRABLE BORD HUSEYIN HIGH HIGH VERY HIGH 0 D-90 D 19 - 174 ---- ---- ----91 D- 9 Y 0 - 74 75 - 99 >/= 100 ---- 10-19 Y 0 - 89 90 - 129 >/= 130 ---- 20-24 Y 0 - 114 115 - 149 >/= 150 ---- >24 Y 0 - 149 150 - 199 200- 499 >/= 500. Venipuncture immediately after or during the administration of Metamizole may lead to falsely low results. Testing should be performed immediately prior to Metamizole dosing. Result Comment: . AGE DESIRABLE BORDERLINE HIGH HIGH VERY HIGH 0 D-90 D 19 - 174 ---- ---- ---- 91 D- 9 Y 0 - 74 75 - 99 >/= 100 ---- 10-19 Y 0 - 89 90 - 129 >/= 130 ---- 20-24 Y 0 - 114 115 - 149 >/= 150 ---- >24 Y 0 - 149 150 - 199 200- 499 >/= 500 . Venipuncture immediately after or during the administration of Metamizole may lead to falsely low results. Testing should be performed immediately prior to Metamizole dosing. Performed By: #### L IPID #### [facility] [address] [place] [address] Cholesterol non HDL [Mass/Vol] 139 mg/dL [facility] Work Phone: Comment on above: AGE DESIRABLE BORDER LINE HIGH HIGH VERY HIGH 0-19 Y 0 - 119 120 - 144 >/= 145 >/= 160 20-24 Y 0 - 149 150 - 189 >/= 190 ---- >24 Y 30 MG/DL ABOVE LDL CHOLESTEROL GOAL. Lipid Panel 40 mg/dL 0 - 40 [facility] Work Phone: No Panel Informationon 03-27 <25 Cutoff <25 [facility] Work Phone: Comment on above: The performance rosetta acteristics of the Zolpidem Confirmation, Urine has been validated by the individual laboratory site where testing is performed. It has not been cleared or approved by the FDA. However the FDA has determined that such clearance or approval is not necessary. Our Laboratory is certified under the Clinical Laboratory Improvement Amendments of 1988 (CLIA) as qualified to perform high complexity clinical laboratory testing. SEE BELOW [facility] Work Phone: Comment on above: Drug screen results are presumptive and should not be used to assess compliance with prescribed medication. Definitive confirmatory drug testing has been added to this sample for any positive screen result and will be reported separately. .Toxicology screening results are reported qualitatively. The concentration must be greater than or equal to the cutoff to be reported as positive. The concentration at which the screening test can detect an individual drug or metabolite varies. The absence of expected drug(s) and/or drug metabolite(s) may indicate non-compliance, inappropriate timing of specimen collection relative to drug administration, poor drug absorption, diluted/adulterated urine, or limitations of testing. For medical purposes only; not valid for forensic use. .Interpretive questions should be directed to the laboratory medical directors. >90 >90 -[facility] Work Phone: Comment on above: CALCULATIONS OF JAZ MATED GFR ARE PERFORMED USING THE 2020 CKD-EPI STUDY REFIT EQUATION WITHOUT THE RACE VARIABLE FOR THE IDMS-TRACEABLE CREATININE METHODS.https://jasn.asnjournals.org/content/early/ ASN.3048440903 Office Visit ([facility] kristine)on 03-27-2022 Follow-up visit Diagnoses/Problems Controlled diabetes mellitus with diabetic neuropathy (250.60,357.2) (E11.40) Class 1 obesity with body mass index (BMI) of 32.0 to 32.9 in adult (278.00,V85.32) (E66.9,Z68.32) Arthritis (716.90) (M19.90) GERD (gastroesophageal reflux disease) (530.81) (K21.9) Hyperlipidemia (272.4) (E78.5) Migraines (346.90) (G43.909) Orders Controlled diabetes mellitus with diabetic neuropathy Renew: Pregabalin 300 MG Oral Capsule; TAKE 2 CAPSULE Bedtime OPIATE/OPIOID/BENZO [EXTENDED] PRESCRIPTION COMPLIANCE; Status:In Progress - Specimen/Data Collected; Done: 27Mar2022 Provider Impressions Chronic conditions stable. Refilled Lyrica, advised to call in every month for refill. Reviewed labs. Advised dietary modification for blood sugar and lipid control. She has follow up scheduled for May. Chief Complaint pt here for med check, control med agreement needed. History of Present Illness I have personally reviewed the [place]AR[place] report for FREDI PAREKH. I have considered the risks of abuse, dependence, addiction and diversion. Is the patient prescribed a combination of a benzodiazepine and opioid? No. Last urine drug screening date/ordered today: 03/27/22 Controlled Substance Agreement: I have printed this form and reviewed each line item with the patient and the patient has verbalized understanding. Date of the last Controlled Substance Agreement: 03/27/22 LYRICA What is the patient?s goal of therapy? Neuropathy relief. Is this being achieved with current treatment? Yes. Pain Assessment and Documentation Tool (PADT) Date of Assessment: 03/27/22 Analgesia: Patient reports her pain level on average during the past week is 3 on a 0 - 10 scale. Patient reports that her pain level at its worst during the past week was 7 on a 0 -10 scale. 75 % of pain has been relieved during the past week per patient Patient states that the amount of pain relief she is now obtaining from her current pain reliever(s) is enough to make a real difference in her life. Query to clinician: Is the patient's pain relief clinically significant? Yes Activities of Daily Living: Physical functioning: Same Family relationships: Same Social relationships: Same Mood: Same Sleep patterns: Same Overall functioning: Same Adverse Events: No, FREDI PAREKH is not experiencing side effects from current pain reliever. Patients overall severity of side effect: None Activities of Daily Living: Yes, it is my opinion that this patient is benefitting from Lyrica therapy. Physical functioning: Same Family relationships: Same Social relationships: Same Mood: Same Sleep patterns: Same Overall functioning: Same 66 YOF presents for med check. DM2 W/NEUROPATHY: Last A1C 6.6 03/27/22. No longer taking metformin. Blood sugar at home has averaged around 120. Lyrica effective at reducing neuropathy which consists burning/pain BL feet and some legs. She does daily foot exams. She will get eye doctor soon. Needs refill on Lyrica, OAR[place] reviewed and appropriate, urine drug screen obtained, controlled substance agreement signed. HYPERLIPIDEMIA: Rosuvastatin, compliant, no SE. Lipids good except triglycerides 200 03/27/22. HERPES: [facility] put [facility] acycl[facility] chronically and she has not had a breakout was 4-5 years ago. BACK ARTHITIS: Celecoxib effective at reducing pain. No SE. GERD: Omeprazole effective. No SE. MIGRAINES: Propranolol and Excedrin migraine are effective at aborting. Symptoms of her migraines include nausea/visual changes/photophobia. SEASONAL ALLERGIES: Loratadine effective. Stable. LEG CRAMPS: Takes potassium for leg cramps for the past 2 months. History of thyroid nodule which was biopsied and tracked for years w/no growth, deemed stable with no further surveillance required per patient. Would not like referral to [facility] for women's care at this time. Needs mammogram. Had DEXA about 1 year ago and it was unremarkable. No other concerns, feeling well. 03/30/22: Urine drug screen results as expected.1 1 Amended By: Arnold Hernandes; Mar 30 2022 7:26 AM ESTReview of Systems Review of Systems: Constitutional: no fever, no unintentional weight change Eye: no recent visual problem Respiratory: no shortness of breath Cardiac: no chest pain GI: no reflux, no nausea, no vomiting, no diarrhea, no constipation, no heartburn, no abdominal pain Neurological: no headache Active Problems Arthritis (716.90) (M19.90) Controlled diabetes mellitus with diabetic neuropathy (250.60,357.2) (E11.40) Encounter for screening mammogram for breast cancer (V76.12) (Z12.31) GERD (gastroesophageal reflux disease) (530.81) (K21.9) Herpes simplex virus (HSV) infection (054.9) (B00.9) Hyperlipidemia (272.4) (E78.5) Leg cramps (729.82) (R25.2) Migraines (346.90) (G43.909) Seasonal allergies (477.9) (J30.2) Surgical History History of Carpal tunnel surgery B/L History of section x3 History of Hy (more content not included)... Normal [facility] TSH WITH REFLEX TO FREE T4 I F ABNORMALon 03-27-2022 TSH Qn 1.27 m[IU]/L Normal 0.44 - 3.98 -[facility] Work Phone: Comment on above: Reference Range: 0.4 4 - 3.98 TSH testing is performed using different testing methodology at [facility] than at other [facility]. Direct result comparisons should only be made within the same method. Result Comment: TSH testing is performed using different testing methodology at [facility] than at other [facility]. Direct result comparisons should only be made within the same method. Performed By: #### T [facility] #### [address] [address] Tobacco Screening.on 022 Tobacco use status CPHS b) No [facility] Work Phone: Office Visit ([facility])on 03-05-2022 Follow-up visit Diagnoses/Problems Hyperlipidemia (272.4) (E78.5) Controlled diabetes mellitus with diabetic neuropathy (250.60,357.2) (E11.40) Herpes simplex virus (HSV) infection (054.9) (B00.9) GERD (gastroesophageal reflux disease) (530.81) (K21.9) Migraines (346.90) (G43.909) Seasonal allergies (477.9) (J30.2) Arthritis (716.90) (M19.90) Leg cramps (729.82) (R25.2) Encounter for screening mammogram for breast cancer (V76.12) (Z12.31) Orders Controlled diabetes mellitus with diabetic neuropathy Complete Blood Count + Differential; Status:Active; Requested for:[id number]; Follow-up visit in 3 months Outpatient Follow-up Status: Hold For - Scheduling Requested for: [id number] Comprehensive Metabolic Panel; Status:Active; Requested for:[id number]; Hemoglobin A1C; Status:Active; Requested for:90Ebr1627; TSH WITH REFLEX TO FREE T4 IF ABNORMAL; Status:Active; Requested for:[id number]; Encounter for screening mammogram for breast cancer Mamm - Screening Mammogram w/ Tomosynthesis; Status:Hold For - Scheduling; Requested for:[id number]; Radiologist to Determine Optimal Study : Y What are the patient's signs and symptoms ? : Annual Screening Mammogram Hyperlipidemia Lipid Panel; Status:Active; Requested for:[id number]; SocHx: Never a smoker Tobacco Use Screening; Status:Complete; Done: [id number] Provider Impressions Chronic conditions seem stable. She does not need medication refills at this time. Labs ordered soon fasting. Mammogram ordered. Follow up 3 months or sooner prn. Chief Complaint new pt to est no concerns. History of Present Illness 66 YOF presents to establish care. Used to be a patient here. DM2 W/NEUROPATHY: Last A1C 7 per patient. No longer taking metformin. Blood sugar at home has averaged around 120. Lyrica effective at reducing neuropathy which consists burning/pain BL feet and some legs. She does daily foot exams. She will get eye doctor soon. HYPERLIPIDEMIA: Rosuvastatin, compliant, no SE. HERPES: [facility] put her on acyclovir chronically and she has not had a breakout was 4-5 years ago. BACK ARTHITIS: Celecoxib effective at reducing pain. No SE. GERD: Omeprazole effective. No SE. MIGRAINES: Propranolol and Excedrin migraine are effective at aborting. Symptoms of her migraines include nausea/visual changes/photophobia. SEASONAL ALLERGIES: Loratadine effective. Stable. LEG CRAMPS: Takes potassium for leg cramps for the past 2 months. History of thyroid nodule which was biopsied and tracked for years w/no growth, deemed stable with no further surveillance required per patient. Would not like referral to [facility] for women's care at this time. Needs mammogram. Feeling well, no concerns. Review of Systems Review of Systems: Constitutional: no fever, no unintentional weight change Eye: no recent visual problem Respiratory: no shortness of breath Cardiac: no chest pain GI: no reflux, no nausea, no vomiting, no diarrhea, no constipation, no heartburn, no abdominal pain Neurological: no headache Surgical History History of Carpal tunnel surgery B/L History of section x3 History of Hysterectomy total History of Tenotomy left wrist History of Tonsillectomy with adenoidectomy Family History Family history of hypertension (V17.49) (Z82.49) Family history of stent (V19.8) (Z84.89) Family history of type 2 diabetes mellitus (V18.0) (Z83.3) Family history of asthma (V17.5) (Z82.5) Family history of chronic obstructive pulmonary disease (V17.6) (Z82.5) Family history of emphysema (V17.6) (Z82.5) Family history of malignant neoplasm of urinary bladder (V16.52) (Z80.52) Family history of myocardial infarction (V17.3) (Z82.49) Family history of type 2 diabetes mellitus (V18.0) (Z83.3) Social History Never a smoker Allergies cortisone Hives;; Recorded By: Juliann Wolf; 03/05/2022 3:54:44 PM Current Meds Medication NameInstructionReason Accu-Chek Guide In Vitro StripUSE 1 STRIP Weekly Acyclovir 400 MG Oral TabletTAKE 1 TABLET TWICE DAILY. Celecoxib 100 MG Oral CapsuleTAKE 2 CAPSULE Once Loratadine 10 MG Oral Tablet Omeprazole 20 MG Oral Capsule Delayed ReleaseTAKE 2 CAPSULES DAILY EVERY MORNING BEFORE BREAKFAST. Potassium 99 MG Oral Tablet Pregabalin 300 MG Oral CapsuleTAKE 2 CAPSULE Bedtime Propranolol HCl - 80 MG Oral TabletTake 1 tablet daily Rosuvastatin Calcium 10 MG Oral TabletTAKE 1 TABLET Bedtime Womens Daily Formula TABS Vitals Vital Signs Recorded: [id number] 04:06PM Heart Rate60 Hqhvkkqy025 Alurdsmzj93 Height5 ft 4 in Cwokqa461 lb 15.76 oz BMI Mkswgjlteq31.27 kg/m2 BSA Calculated1.91 Tobacco Useb) No PHQ-2 #1. Over the last 2 weeks have you felt down, depressed or hopeless? (If yes, answer PHQ-9 below)No PHQ-2 #2. Over the last 2 weeks have you felt little interest or pleasure in doing things? (If yes, answer PHQ-9 below)No Falls Screening (Age 18+)a) No falls within the last year Physical Exam Gen (more content not included)... Normal [facility] Tobacco Screening.on Adult depression screening assessment No [facility] Work Phone: Fall risk assessment a) No falls within the last year [facility] Work Phone: Tobacco use status CPHS b) No M [facility] Work Phone: MRI Shoulder w/o Contrast Ks peter 01-06-2018 MRI Shoulder w/o Contrast Right Exam Date/Time:01/03/2018 17:25 EDTReason for Exam:RIGHT UPPER ARM STRAIN DOI 09/30/2017ReportMRI OF THE RIGHT SHOULDER WITHOUT CONTRAST 01/03/2018.HISTORY: Stiffness in the right shoulder and right upper arm for 4 months. Thepatient slipped walking down a ramp and grabbed the rail when falling. Shoulderpain since that time. S46.911A, S46.912A, S29.012A.TECHNIQUE: Axial fat-saturated T2, axial gradient echo and sagittal T2 and STIRimages were obtained along with coronal T1, fat-saturated proton density, fatsaturated T2 and STIR images without contrast.FINDINGS: There is moderate degenerative change of the acromioclavicular jointwith joint space narrowing, marginal osteophytes, and capsular hypertrophy.There is a type II acromion. A small amount of subacromial fluid is present.Heterogeneous intermediate signal and mild thickening of the supraspinatus isconsistent with moderately severe tendinopathy with bursal-sided fraying. Thereis a low-grade intrasubstance tear of the supraspinatus tracking distally fromthe lateral margin of the acromion measuring 6 mm in longitudinal length by 1to 2 mm in width.There is mild tendinopathy of the infraspinatus and subscapularis tendons. Noadditional rotator cuff tear is identified. There is no atrophy of the rotatorcuff muscles.The long head of the biceps tendon is normally positioned in the bicipitalgroove. There is moderate tendinopathy involving the intra-articular portion ofthe biceps tendon with intermediate signal of the tendon.The glenohumeral alignment is anatomic. The posterosuperior labrum isrelatively small in size consistent with fraying and likely degenerativetearing. No paralabral cyst is evident.There is mild reactive cystic change in the greater tuberosity. There is nofracture or dislocation.IMPRESSION: 1. There is moderately severe tendinopathy and bursal-sided fraying of thesupraspinatus with a superimposed low-grade intrasubstance tear of thesupraspinatus measuring 6 mm in longitudinal length by 1 to 2 mm in width asdescribed above.2. There is mild tendinopathy of the infraspinatus and subscapularis tendonswith no additional rotator cuff tear.3. There is moderate tendinopathy involving the intra-articular portion of theExam Date/Time:01/03/2018 17:25 EDTReportbiceps tendon.4. There is moderate degenerative change of the acromioclavicular joint.5. A small amount of subacromial fluid is consistent with mild bursitis. FINAL REPORT Dictated: 01/06/2018 10:21 am Macey Guerin MD (Electronic Signature): 01/06/2018 10:21 amSigned by: Fareed Guerin MD Technologist: [facility] Vital Signs Date Time Vital Sign Value Performing Clinician Facility 06-14-2025 12:27-0400 Body height 162.6 cm Arnold Hernandes PA-C Work Phone: [facility] 06-14-2025 12:27-0400 Body mass index (BMI) [Ratio] 25.58 kg/m2 Arnold Stentz PA-C Work Phone: [facility] 06-14-2025 12:27-040 Body weight 67.59 kg Arnold Stentz PA-C Work Phone: [facility] 06-14-2025 12:27-0400 Diastolic blood pressure 74 mm[Hg] Arnold Stentz PA-C Work Phone: [facility] 06-14-2025 12:27-0400 Heart rate 80 /min Arnold Stentz PA-C Work Phone: [facility] 06-14-2025 12:27-0400 SaO2% (BldA) [Mass fraction] 98 % Arnold Stentz PA-C Work Phone: [facility] 06-14-2025 12:27-040 Systolic blood pressure 126 mm[Hg] Arnold Stentz PA-C Work Phone: [facility] 05-05-2025 10:27-0400 Body height 162.6 cm Jonelle Viera [employer] INSTALLER-SEISMIC ENGINEER Work Phone: [facility] 05-05-2025 10:27-0400 Body mass index (BMI) [Ratio] 24.55 kg/m2 Jonelle Viera [employer] INSTALLER-SEISMIC ENGINEER Work Phone: [facility] 05-05-2025 10:27-0400 Body temperature 97.3 [degF] Jonelle Viera [employer] INSTALLER-SEISMIC ENGINEER Work Phone: [facility] 05-05-2025 10:27-0400 Body weight 64.86 kg Jonelle Viera [employer] INSTALLER-SEISMIC ENGINEER Work Phone: [facility] 05-05-2025 10:27-0400 Diastolic blood pressure 78 mm[Hg] Jonelle Viera [employer] INSTALLER-SEISMIC ENGINEER Work Phone: [facility] 05-05-2025 10:27-0400 Heart rate 68 /min Jonelle Viera [employer]INGS INSTALLER-SEISMIC ENGINEER Work Phone: [facility] 05-05-2025 10:27-0400 SaO2% (BldA) [Mass fraction] 97 % Jonelle Viera [employer]INGS INSTALLER-SEISMIC ENGINEER Work Phone: [facility] 05-05-2025 10:27-0400 Systolic blood pressure 126 mm[Hg] Jonelle Viera [employer]INGS INSTALLER-SEISMIC ENGINEER Work Phone: [facility] 12-11-2024 13:28-0400 Body height 163.8 cm Arnold Stentz PA-C Work Phone: [facility] 12-11-2024 13:28-0400 Body mass index (BMI) [Ratio] 26.7 kg/m2 Arnold Stentz PA-C Work Phone: [facility] 12-11-2024 13:28-0400 Body weight 71.67 kg Arnold Stentz PA-C Work Phone: [facility] 12-11-2024 13:28-0400 Diastolic blood pressure 68 mm[Hg] Arnold Stentz PA-C Work Phone: [facility] 12-11-2024 13:28-0400 Heart rate 68 /min Arnold Stentz PA-C Work Phone: [facility] 12-11-2024 13:28-0400 SaO2% (BldA) [Mass fraction] 97 % Arnold Stentz PA-C Work Phone: [facility] 12-11-2024 13:28-0400 Systolic blood pressure 128 mm[Hg] Arnold Stentz PA-C Work Phone: [facility] 09-14-2024 12:17-0500 Body height 163.8 cm Jonelle Viera [employer] INSTALLER-SEISMIC ENGINEER Work Phone: [facility] 09-14-2024 12:17-0500 Body mass index (BMI) [Ratio] 27.38 kg/m2 Jonelle Catherine [employer] INSTALLER-SEISMIC ENGINEER Work Phone: [phone] [place] [address] 09-14-2024 12:17-0500 Body temperature 96.49 [degF] Jonelle Viera [employer] INSTALLER-SEISMIC ENGINEER Work Phone: [phone] [place] [address] 09-14-2024 12:17-0500 Body weight 73.48 kg Jonelle Viera [employer]INGS INSTALLER-SEISMIC ENGINEER Work Phone: [phone] [place] [address] 09-14-2024 12:17-0500 Diastolic blood pressure 76 mm[Hg] Jonelle Viera [employer]INGS INSTALLER-SEISMIC ENGINEER Work Phone: [phone] [place] [address] 09-14-2024 12:17-0500 Heart rate 77 /min Jonelle Viera EPOXY COATINGS INSTALLER-SEISMIC ENGINEER Work Phone: [phone] [place] [address] 09-14-2024 12:17-0500 Respiratory rate 14 /min Jonelle Viera [employer] COATINGS INSTALLER-SEISMIC ENGINEER Work Phone: [phone] [place] [address] 09-14-2024 12:17-0500 SaO2% (BldA) [Mass fraction] 95 % Jonelle Viera [employer] COATINGS INSTALLER-SEISMIC ENGINEER Work Phone: [phone] [place] [address] 09-14-2024 12:17-0500 Systolic blood pressure 111 mm[Hg] Jonelle Viera [employer] COATINGS INSTALLER-SEISMIC ENGINEER Work Phone: [phone])[phone] [place] [address] 06-11-2024 12:38-0400 Body height 162.6 cm Arnold Stentz PA-C Work Phone: [facility] 06-11-2024 12:38-0400 Body mass index (BMI) [Ratio] 30.73 kg/m2 Arnold Stentz PA-C Work Phone: [facility] 06-11-2024 12:38-0400 Body weight 81.19 kg Arnold Stentz PA-C Work Phone: [facility] 06-11-2024 12:38-0400 Diastolic blood pressure 70 mm[Hg] Arnold Stentz PA-C Work Phone: [facility] 06-11-2024 12:38-0400 Heart rate 81 /min Arnold Stentz PA-C Work Phone: [facility] 06-11-2024 12:38-0400 SaO2% (BldA) [Mass fraction] 95 % Arnold Stentz PA-C Work Phone: [facility] 06-11-2024 12:38-0400 Systolic blood pressure 110 mm[Hg] Arnold Stentz PA-C Work Phone: [facility] 03-09-2024 13:28-0400 Body height 162.6 cm Arnold Stentz PA-C Work Phone: [facility] 03-09-2024 13:28-0400 Body mass index (BMI) [Ratio] 31.93 kg/m2 Arnold Stentz PA-C Work Phone: [facility] 03-09-2024 13:28-0400 Body weight 84.37 kg Arnold Stentz PA-C Work Phone: [facility] 03-09-2024 13:28-0400 Diastolic blood pressure 68 mm[Hg] Arnold Stentz PA-C Work Phone: [facility] 03-09-2024 13:28-0400 Heart rate 65 /min Arnold Stentz PA-C Work Phone: [facility] 03-09-2024 13:28-0400 SaO2% (BldA) [Mass fraction] 92 % Arnold Stentz PA-C Work Phone: [facility] 03-09-2024 13:28-0400 Systolic blood pressure 120 mm[Hg] Arnold Stentz PA-C Work Phone: [facility] 12-10-2023 14:12-0400 Body height 162.6 cm Arnold Stentz PA-C Work Phone: [facility] 12-10-2023 14:12-0400 Body mass index (BMI) [Ratio] 31.93 kg/m2 Arnold Stentz PA-C Work Phone: [facility] 12-10-2023 14:120400 Body weight 84.37 kg Arnold Stentz PA-C Work Phone: [facility] 12-10-2023 14:12-0400 Diastolic blood pressure 78 mm[Hg] Arnold Stentz PA-C Work Phone: [facility] 12-10-2023 14:12-0400 Heart rate 75 /min Arnold Stentz PA-C Work Phone: [facility] 12-10-2023 14:12-0400 SaO2% (BldA) [Mass fraction] 98 % Arnold Stentz PA-C Work Phone: [facility] 12-10-2023 14:120400 Systolic blood pressure 122 mm[Hg] Arnold Stentz PA-C Work Phone: [facility] 10-17-2023 09:39-0500 Body height 162.6 cm Rudy Godoy EPO[employer] COATINGS INSTALLER-SEISMIC ENGINEER Work Phone: [facility] 10-17-2023 09:39-0500 Body mass index (BMI) [Ratio] 31.58 kg/m2 Rudy Bynumenijossy EPOXY COATINGS INSTALLER-SEISMIC ENGINEER Work Phone: [facility] 10-17-2023 09:39-0500 Body temperature 98.91 [degF] Rudy Bynumenijossy EPOXY COATINGS INSTALLER-SEISMIC ENGINEER Work Phone: [facility] 10-17-2023 09:39-0500 Body weight 83.46 kg Rudy Godoy [employer]PO[employer] COATINGS INSTALLER-SEISMIC ENGINEER Work Phone: [facility] 10-17-2023 09:39-0500 Diastolic blood pressure 55 mm[Hg] Rudy Godoy EPO[employer] COATINGS INSTALLER-SEISMIC ENGINEER Work Phone: [facility] 10-17-2023 09:39-0500 Heart rate 77 /min Rudy Godoy EPO[employer] COATINGS INSTALLER-SEISMIC ENGINEER Work Phone: [facility] 10-17-2023 09:39-0500 Respiratory rate 18 /min Rudy Godoy EPO[employer] COATINGS INSTALLER-SEISMIC ENGINEER Work Phone: [facility] 10-17-2023 09:39-0500 SaO2% (BldA) [Mass fraction] 94 % Rudy Godoy EPOXY COATINGS INSTALLER-SEISMIC ENGINEER Work Phone: [facility] 10-17-2023 09:39-0500 Systolic blood pressure 93 mm[Hg] Rudy Godoy EPOXY COATINGS INSTALLER-SEISMIC ENGINEER Work Phone: [facility] 09-09-2023 12:38-0500 Body height 162.6 cm Arnold Stentz PA-C Work Phone: [facility] 09-09-2023 12:38-0500 Body mass index (BMI) [Ratio] 31.7 kg/m2 Arnold Stentz PA-C Work Phone: [facility] 09-09-2023 12:38-0500 Body weight 83.78 kg Arnold Stentz PA-C Work Phone: [facility] 09-09-2023 12:38-0500 Diastolic blood pressure 70 mm[Hg] Arnold Stentz PA-C Work Phone: [facility] 09-09-2023 12:38-0500 Heart rate 81 /min Arnold Stentz PA-C Work Phone: [facility] 09-09-2023 12:38-0500 Systolic blood pressure 118 mm[Hg] Arnold Stentz PA-C Work Phone: [facility] 08-29-2023 14:19-0500 Body height 162.6 cm Marcos Arita EPO[employer] COATINGS INSTALLER-SEISMIC ENGINEER Work Phone: [facility] 08-29-2023 14:19-0500 Body mass index (BMI) [Ratio] 32.18 kg/m2 Marcos Arita [employer] COATINGS INSTALLER-SEISMIC ENGINEER Work Phone: [facility] 08-29-2023 14:19-0500 Body weight 85.05 kg Marcos Tuckerd [employer]PO[employer] COATINGS INSTALLER-SEISMIC ENGINEER Work Phone: [facility] 08-29-2023 14:19-0500 Diastolic blood pressure 80 mm[Hg] Marcos Tuckerd EPO[employer] COATINGS INSTALLER-SEISMIC ENGINEER Work Phone: [facility] 08-29-2023 14:19-0500 Heart rate 65 /min Marcos Juan J [employer] COATINGS INSTALLER-SEISMIC ENGINEER Work Phone: [facility] 08-29-2023 14:19-0500 Systolic blood pressure 118 mm[Hg] Marcos Tuckerd EPO[employer] COATINGS INSTALLER-SEISMIC ENGINEER Work Phone: [facility] 06-28-2023 15:02-0500 Body height 162.6 cm Acacia Campos MD Work Phone: [facility] 06-28-2023 15:02-0500 Body mass index (BMI) [Ratio] 31.41 kg/m2 Acacia Campos MD Work Phone: [facility] 06-28-2023 15:02-0500 Body temperature 98.01 [degF] Acacia Campos MD Work Phone: [facility] 06-28-2023 15:02-0500 Body weight 83.01 kg Acacia Campos MD Work Phone: [facility] 06-28-2023 15:02-0500 Diastolic blood pressure 64 mm[Hg] Acacia Campos MD Work Phone: [facility] 06-28-2023 15:02-0500 Heart rate 64 /min Acacia Campos MD Work Phone: [facility] 06-28-2023 15:02-0500 Systolic blood pressure 124 mm[Hg] Acacia Campos MD Work Phone: [facility] 06-11-2023 13:51-0400 Body height 162.6 cm Arnold Hernandes PA-C Work Phone: [facility] 06-11-2023 13:51-0400 Body mass index (BMI) [Ratio] 32.27 kg/m2 Arnold Stentz PA-C Work Phone: [facility] 06-11-2023 13:51-0400 Body temperature 98.01 [degF] Arnold Stentz PA-C Work Phone: [facility] 06-11-2023 13:51-0400 Body weight 85.28 kg Arnold Stentz PA-C Work Phone: [facility] 06-11-2023 13:51-0400 Diastolic blood pressure 62 mm[Hg] Arnold Stentz PA-C Work Phone: [facility] 06-11-2023 13:51-0400 Heart rate 64 /min Arnold Stentz PA-C Work Phone: [facility] 06-11-2023 13:51-0400 Systolic blood pressure 120 mm[Hg] Arnold Stentz PA-C Work Phone: [facility] 05-27-2023 10:28-0400 Body height 162.6 cm Arnold Stentz PA-C Work Phone: [facility] 05-27-2023 10:28-0400 Body mass index (BMI) [Ratio] 32.79 kg/m2 Arnold Stentz PA-C Work Phone: [facility] 05-27-2023 10:28-0400 Body temperature 98.01 [degF] Arnold Stentz PA-C Work Phone: [facility] 05-27-2023 10:28-0400 Body weight 86.64 kg Arnold Stentz PA-C Work Phone: [facility] 05-27-2023 10:28-0400 Diastolic blood pressure 72 mm[Hg] Arnold Stentz PA-C Work Phone: [facility] 05-27-2023 10:28-0400 Heart rate 65 /min Arnold Stentz PA-C Work Phone: [facility] 05-27-2023 10:28-0400 SaO2% (BldA) [Mass fraction] 95 % Arnold Stentz PA-C Work Phone: [facility] 05-27-2023 10:28-0400 Systolic blood pressure 130 mm[Hg] Arnold Stentz PA-C Work Phone: [facility] 03-07-2023 14:46-0400 Body height 162.6 cm Arnold Stentz PA-C Work Phone: [facility] 03-07-2023 14:46-0400 Body mass index (BMI) [Ratio] 32.61 kg/m2 Arnold Stentz PA-C Work Phone: [facility] 03-07-2023 14:46-0400 Body weight 86.18 kg Arnold Stentz PA-C Work Phone: [facility] 03-07-2023 14:46-0400 Diastolic blood pressure 70 mm[Hg] Arnold Stentz PA-C Work Phone: [facility] 03-07-2023 14:46-0400 Heart rate 70 /min Arnold Stentz PA-C Work Phone: [facility] 03-07-2023 14:46-0400 Systolic blood pressure 122 mm[Hg] Arnold Stentz PA-C Work Phone: [facility] 12-17-2022 14:47-0400 Body height 162.6 cm Arnold Stentz PA-C Work Phone: [facility] 12-17-2022 14:47-0400 Body mass index (BMI) [Ratio] 33.64 kg/m2 Arnold Stentz PA-C Work Phone: [facility] 12-17-2022 14:47-0400 Body temperature 97.5 [degF] Arnold Stentz PA-C Work Phone: [facility] 12-17-2022 14:47-0400 Body weight 88.91 kg Arnold Stentz PA-C Work Phone: [facility] 12-17-2022 14:47-0400 Diastolic blood pressure 68 mm[Hg] Arnold Stentz PA-C Work Phone: [facility] 12-17-2022 14:47-0400 Heart rate 72 /min Arnold Stentz PA-C Work Phone: [facility] 12-17-2022 14:47-0400 Systolic blood pressure 108 mm[Hg] Arnold Stentz PA-C Work Phone: [facility] 09-07-2022 14:55-0500 Body height 162.56 cm Arnold Stentz Work Phone: -[facility] Work Phone: 09-07-2022 14:55-0500 Body mass index (BMI) [Ratio] 32.61 kg/m2 Arnold Stentz Work Phone: -[facility] Work Phone: 09-07-2022 14:55-0500 Body surface area Derived from formula 1.91 m2 Arnold Stentz Work Phone: -[facility] Work Phone: 09-07-2022 14:55-0500 Body weight 86.18 kg Arnold Stentz Work Phone: -[facility] Work Phone: 09-07-2022 14:55-0500 Diastolic blood pressure 80 mm[Hg] Arnold Stentz Work Phone: -[facility] Work Phone: 09-07-2022 14:55-0500 Heart rate 72 /min Arnold Stentz Work Phone: -[facility] Work Phone: 01-20-2023 14:55-0500 Systolic blood pressure 110 mm[Hg] Arnold Stentz Work Phone: [facility] Work Phone: 08-14-2022 18:03-0500 Body height 164 cm Text Entry [facility] 08-14-2022 18:03-0500 Body temperature 97.52 [degF] Text Entry [facility] 08-14-2022 18:03-0500 Diastolic blood pressure 94 mm[Hg] Text Entry [facility] 08-14-2022 18:03-0500 Heart rate 64 /min Text Entry [facility] 08-14-2022 18:03-0500 Respiratory rate 22 /min Text Entry [facility] 08-14-2022 18:03-0500 SaO2% (BldA) [Mass fraction] 95 % Text Entry [facility] 08-14-2022 18:03-0500 Systolic blood pressure 146 mm[Hg] Text Entry [facility] 06-07-2022 14:49-0400 Body height 162.56 cm Arnold Stentz Work Phone: [facility] Work Phone: 06-07-2022 14:49-0400 Body mass index (BMI) [Ratio] 32.79 kg/m2 Arnold Stentz Work Phone: [facility] Work Phone: 06-07-2022 14:49-0400 Body surface area Derived from formula 1.92 m2 Arnold Stentz Work Phone: [facility] Work Phone: 06-07-2022 14:49-0400 Body weight 86.63 kg Arnold Stentz Work Phone: [facility] Work Phone: 06-07-2022 14:49-0400 Diastolic blood pressure 68 mm[Hg] Arnold Stentz Work Phone: [facility] Work Phone: 06-07-2022 14:49-0400 Heart rate 80 /min Arnold Stentz Work Phone: [facility] Work Phone: 06-07-2022 14:49-0400 Systolic blood pressure 108 mm[Hg] Arnold Stentz Work Phone: [facility] Work Phone: 03-27-2022 15:01-0400 Body height 162.56 cm Arnold Stentz Work Phone: [facility] Work Phone: 03-27-2022 15:01-0400 Body mass index (BMI) [Ratio] 32.1 kg/m2 Arnold Stentz Work Phone: [facility] Work Phone: 03-27-2022 15:01-0400 Body surface area Derived from formula 1.9 m2 Arnold Stentz Work Phone: [facility] Work Phone: 03-27-2022 15:01-0400 Body weight 84.82 kg Arnold Stentz Work Phone: [facility] Work Phone: 03-27-2022 15:01-0400 Diastolic blood pressure 70 mm[Hg] Arnold Stentz Work Phone: [facility] Work Phone: 03-27-2022 15:01-0400 Heart rate 60 /min Arnold Stentz Work Phone: [facility] Work Phone: 03-27-2022 15:01-0400 Systolic blood pressure 110 mm[Hg] Arnold Stentz Work Phone: [facility] Work Phone: 03-05-2022 16:06-0400 Body height 162.56 cm Arnold Stentz Work Phone: [facility] Work Phone: 03-05-2022 16:06-0400 Body mass index (BMI) [Ratio] 32.27 kg/m2 Arnold Stentz Work Phone: [facility] Work Phone: 03-05-2022 16:06-0400 Body surface area Derived from formula 1.91 m2 Arnold Stentz Work Phone: [facility] Work Phone: 03-05-2022 16:06-0400 Body weight 85.27 kg Arnold Stentz Work Phone: [facility] Work Phone: 03-05-2022 16:06-0400 Diastolic blood pressure 74 mm[Hg] Arnold Stentz Work Phone: [facility] Work Phone: 03-05-2022 16:06-0400 Heart rate 60 /min Arnold Stentz Work Phone: [facility] Work Phone: 03-05-2022 16:06-0400 Systolic blood pressure 118 mm[Hg] Arnold Stentz Work Phone: [facility] Work Phone: Encounters Encounter Date Encounter Type Care Provider Facility Start: 06-14-2025 End: 06-14-2025 Assay of hemosiderin, quant Arnold Stentz PA-C Work Phone: [facility] Work Phone: Start: 06-14-2025 End: 06-14-2025 Patient encounter procedure Arnold Stentz PA-C Work Phone: [facility] Comment on above: Routine general medi sasha examination at health care facility (Primary Dx); Seasonal allergies; Migraine without status migrainosus, not intractable, unspecified migraine type; Colon cancer screening; Controlled type 2 diabetes with neuropathy (Multi); Screening for thyroid disorder; Mixed hyperlipidemia; Gastroesophageal reflux disease without esophagitis; Hyperlipidemia, mixed Start: 06-14-2025 End: 06-14-2025 ambulatory [facility] Start: 06-14-2025 End: 06-14-2025 Encounter for general adult medical examination without abnormal findings [facility] Start: 05-05-2025 End: 05-05-2025 Office outpatient visit 15 minutes Jonelle BOYCE Work Phone: [facility] Comment on above: Left eye pain (Prima ry Dx) Start: 05-05-2025 End: 05-05-2025 ambulatory [facility] Start: 12-14-2024 End: 12-14-2024 ambulatory [facility] Start: 12-14-2024 End: 12-14-2024 Subsequent hospital visit by physician Jadon Ortiz [place] Comment on above: Screening mammogram for breast cancer Start: 12-11-2024 End: 12-11-2024 Office outpatient visit 25 minutes [facility] CHARMAINE Work Phone: [facility] Comment on above: Long-term use of hig h-risk medication (Primary Dx); Controlled type 2 diabetes with neuropathy; Rheumatoid arthritis with positive rheumatoid factor, involving unspecified site (Multi); Screening mammogram for breast cancer; Mixed hyperlipidemia; Gastroesophageal reflux disease without esophagitis; Hyperlipidemia, unspecified hyperlipidemia type; Herpes simplex viral infection; Nausea Start: 12-11-2024 End: 12-11-2024 ambulatory [facility] Start: 09-14-2024 End: 09-14-2024 ambulatory [facility] Start: 09-14-2024 End: 09-14-2024 Patient encounter procedure Jonelle BOYCE Work Phone: [facility] Comment on above: Dog bite, initial en counter (Primary Dx) Start: 08-25-2024 End: 08-25-2024 ambulatory [facility] Start: 06-18-2024 End: 06-18-2024 ambulatory [facility] Start: 06-11-2024 End: 06-11-2024 Office outpatient visit 25 minutes Arnold Stentz PA-C Work Phone: [facility] Comment on above: Controlled type 2 di abetes with neuropathy (Primary Dx); Mixed hyperlipidemia; Screening for thyroid disorder; Gastroesophageal reflux disease without esophagitis; Herpes simplex viral infection; Seasonal allergies; Nausea; Other migraine without status migrainosus, not intractable; Rheumatoid arthritis with positive rheumatoid factor, involving unspecified site (Multi) Start: 05-29-2024 End: 05-29-2024 ambulatory [facility] Start: 04-24-2024 End: 04-24-2024 ambulatory [facility] Start: 03-09-2024 End: 03-09-2024 Assay of hemosiderin, quant Arnold Stentz PA-C Work Phone: [facility] Work Phone: Start: 03-09-2024 End: 03-09-2024 Patient encounter procedure Arnold Stentz PA-C Work Phone: [facility] Comment on above: Routine general medi sasha examination at health care facility (Primary Dx); Controlled type 2 diabetes with neuropathy (Multi); Arthritis; Seasonal allergies; Nausea; Migraine without status migrainosus, not intractable, unspecified migraine type; Hyperlipidemia, unspecified hyperlipidemia type; Gastroesophageal reflux disease, unspecified whether esophagitis present; Rheumatoid arthritis with positive rheumatoid factor, involving unspecified site (Multi) Start: 02-24-2024 End: 02-24-2024 ambulatory [facility] Start: 02-10-2024 End: 02-10-2024 [facility]ulatory [facility] Facility[facility] Start: 12-10-2023 End: 12-10-2023 Office outpatient visit 15 minutes Arnold Stentz PA-C Work Phone: [facility] Comment on above: Controlled type 2 di abetes with neuropathy (Multi) (Primary Dx); Arthralgia, unspecified joint; Polyarthritis with positive rheumatoid factor (Multi) Start: 10-17-2023 End: 10-17-2023 Patient encounter procedure Rudy Saundra Jayne EPO[employer] COATINGS INSTALLER-SEISMIC ENGINEER Work Phone: [facility] Comment on above: Influenza B (Primary Dx); Acute upper respiratory infection; Acute bronchitis, unspecified organism Start: 09-12-2023 End: 09-12-2023 Subsequent hospital visit by physician Jadon [id number] Dxa [place] Comment on above: Postmenopausal Encounter for screen ing mammogram for breast cancer Start: 09-09-2023 End: 09-09-2023 Office outpatient visit 25 minutes [facility] [employer] PA-C Work Phone: [facility] Comment on above: Postmenopausal (Prim aguilar Dx); Controlled type 2 diabetes with neuropathy (CMS/HCC); Gastroesophageal reflux disease, unspecified whether esophagitis present; Encounter for screening mammogram for breast cancer; Long-term use of high-risk medication; Seasonal allergies; Nausea; Mixed hyperlipidemia; Herpes simplex viral infection; Primary osteoarthritis involving multiple joints Start: 08-29-2023 End: 08-29-2023 Office outpatient visit 15 minutes Marcos Arita E[employer] COATINGS INSTALLER-SEISMIC ENGINEER Work Phone: [facility] Comment on above: Abdominal pain, epig astric (Primary Dx); Gastroesophageal reflux disease without esophagitis; Flatulence symptom; Constipation, unspecified constipation type Start: 07-09-2023 End: 07-09-2023 Subsequent hospital visit by physician Jadon [facility] Comment on above: Chronic maxillary si nusitis Start: 06-28-2023 End: 06-28-2023 Office outpatient visit 15 minutes Acacia Campos MD Work Phone: [facility] Comment on above: Chronic maxillary si nusitis (Primary Dx) Start: 06-11-2023 End: 06-11-2023 Office outpatient visit 15 minutes Arnold Stentz PA-C Work Phone: [facility] Comment on above: Acute recurrent maxi llary sinusitis (Primary Dx) Start: 05-27-2023 End: 05-27-2023 Office outpatient visit 15 minutes Arnold Stentz PA-C Work Phone: [facility] Comment on above: Acute non-recurrent maxillary sinusitis (Primary Dx) Start: 03-07-2023 End: 03-07-2023 Assay of hemosiderin, quant Arnold Hernandes PA-C Work Phone: [facility] Work Phone: Start: 03-07-2023 End: 03-07-2023 Patient encounter procedure Arnold Hernandes PA-C Work Phone: [facility] Comment on above: Routine general medi sasha examination at health care facility (Primary Dx); Controlled type 2 diabetes with neuropathy ([facility]); Gastroesophageal reflux disease, unspecified whether esophagitis present; Herpes simplex viral infection; Hyperlipidemia, unspecified hyperlipidemia type; Nausea; Seasonal allergies; Primary osteoarthritis involving multiple joints Start: 12-17-2022 End: 12-17-2022 Office outpatient visit 15 minutes Arnold Leez PA-C Work Phone: [facility] Comment on above: Acute recurrent maxi llary sinusitis (Primary Dx) Start: 10-11-2022 Chart Update Arnold Hernandes Work Phone: [facility] Work Phone: Start: 10-08-2022 AUDIT Arnold Hernandes Work Phone: [facility] Work Phone: Start: 10-01-2022 AUDIT Arnold Hernandes Work Phone: [facility] Work Phone: Start: 09-07-2022 Office outpatient vi sit 25 minutes Arnold Hernandes Work Phone: [facility] Work Phone: Start: 09-07-2022 ambulatory Mr. Arnold Hernandes Facil [id number] Start: 08-30-2022 AUDIT Arnold Hernandes Work Phone: [facility] Work Phone: Start: 08-29-2022 ambulatory Arnold Hernandes Facility: [id number] Start: 08-14-2022 End: 08-14-2022 Emergency department patient visit Rudy Godoy [facility] Start: 07-30-2022 AUDIT Arnold Hernandes Work Phone: [facility] Work Phone: Start: 06-28-2022 AUDIT Arnold Stentz Work Phone: [facility] Work Phone: Start: 06-14-2022 AUDIT Arnold Stentchetna Work Phone: [facility] Work Phone: Start: 06-11-2022 AUDIT Arnold Stentchetna Work Phone: [facility] Work Phone: Start: 06-07-2022 Adv care pln tlkd & alt dcsn maker docd Arnold Stentchetna Work Phone: [facility] Work Phone: Start: 06-07-2022 EPV, Provider: Arnold Hernandes, Status: Pen, Time: 2:45 PM Arnold Stentchetna Work Phone: [facility] Work Phone: Start: 06-07-2022 ambulatory Mr. Arnold Hernandes Facil [id number] Start: 06-05-2022 AUDIT rAnold Hernandes Work Phone: [facility] Work Phone: Start: 04-10-2022 AUDIT Arnold Stentchetna Work Phone: [facility] Work Phone: Start: 04-05-2022 AUDIT Arnold Stentchetna Work Phone: [facility] Work Phone: Start: 03-27-2022 EPV, Provider: Arnold Hernandes, Status: Pen, Time: 3:15 PM Arnold Stentz Work Phone: [facility] Work Phone: Start: 03-27-2022 Office outpatient vi sit 25 minutes Arnold Stentchetna Work Phone: [facility] Work Phone: Start: 03-27-2022 ambulatory Mr. Arnold Christianson [id number] Start: 03-26-2022 AUDIT Arnold Hernandes Work Phone: [facility] Work Phone: Start: 03-05-2022 Office outpatient ne w 45 minutes Arnold Stentz Work Phone: [facility] Work Phone: Start: 03-05-2022 ambulatory Mr. Arnold Christianson [id number] Start: 02-18-2018 End: 02-19-2018 Patient encounter Garrett Webb Facility:[facility] Start: 01-28-2018 End: 04-03-2018 Patient encounter Garrett Webb Facility:[facility] Start: 01-07-2018 End: 01-08-2018 Patient encounter Garrett Bailey Webb Facility:[facility] Start: 01-03-2018 End: 01-04-2018 Patient encounter Letha Cates Facility:[facility] Start: 10-28-2017 End: 12-03-2017 Patient encounter Letha Cates Facility:[facility] Procedures Date Procedure Procedure Detail Performing Clinician Start: 06-08-2025 Lipid 1996 panel - S norris or Plasma Arnold Stentz PA-C Work Phone: Start: 12-14-2024 Mammography Jonelle Srinivasan y E[employer] COATINGS INSTALLER-SEISMIC ENGINEER Work Phone: Start: 12-07-2024 Lipid 1996 panel - S norris or Plasma Arnold Stentz PA-C Work Phone: Start: 10-17-2023 Iadna streptococcus group a amplified probe tq Rudy Godoy EPO[employer] COATINGS INSTALLER-SEISMIC ENGINEER Work Phone: Start: 10-17-2023 POCT BD VERITOR TRIPLEX AG Rudy Godoy EPOXY COATINGS INSTALLER-SEISMIC ENGINEER Work Phone: Start: 09-12-2023 Dxa bone density arnie dy 1/> sites axial skel Arnold Stentz PA-C Work Phone: Start: 09-12-2023 End: 09-12-2023 Mammography Arnold Stentz PA-C Work Phone: Start: 08-27-2023 Lipid 1996 panel - S norris or Plasma Marcos Tuckerd EPO[employer] COATINGS INSTALLER-SEISMIC ENGINEER Work Phone: Start: 07-09-2023 Ct maxillofacial w/o contrast material Acacia Campos MD Work Phone: Start: 02-22-2023 Lipid 1996 panel - S norris or Plasma Arnold Stentz PA-C Work Phone: Start: 08-29-2022 Mammography Arnold Josue ntz PA-C Work Phone: Start: 03-27-2022 Lipid 1996 panel - S norris or Plasma Arnold Stentz PA-C Work Phone: section Arnold Sten tz Work Phone: Comment on above: x3; Decompression of med fei nerve Arnold Stentz Work Phone: Comment on above: B/L; Tenotomy Arnold Stentz Work Phone: Comment on above: left wrist; Tonsillectomy and adenoidectomy Arnold Stentz Work Phone: Total hysterectomy Arnold St entz Work Phone: Plan of Treatment Date Care Activity Detail Author Start: 09-14-2034 DTaP/Tdap/Td Vaccine s (3 - Td or Tdap) DTaP/Tdap/Td Vaccines (3 - Td or Tdap) [facility] Start: 05-26-2027 Glaucoma screening Diabetes: R etinopathy Screening [facility] Start: 06-15-2026 Medicare Annual Wellness Visit Medicare Annual Wellness Visit (AWV) [facility] Start: 06-08-2026 Lipid panel Lipid Panel [facility] Start: 06-08-2026 Urine screening for protein Diabetes: Urine Protein Screening [facility] Start: 12-14-2025 Screening for malign ant neoplasm of breast Mammogram [facility] Start: 12-13-2025 End: 12-13-2025 Patient encounter procedure 12/13/2025 12:20 PM EDT Office Visit [facility] [address] [place] [phone] Arnold Hernandes PA-C [address] [facility] [place] [address] [facility] Start: 12-07-2025 Lipid panel Lipid Panel [facility] Start: 09-12-2025 Screening for osteoporosis Bone Density Scan [facility] Start: 09-08-2025 Hemoglobin A1c measurement Diabetes: Hemoglobin A1C [facility] Start: 06-20-2025 Screening for malign ant neoplasm of colon [facility] Start: 06-14-2025 End: 06-14-2026 CBC panel - Blood by Automated count CBC Lab Routine Controlled type 2 diabetes with neuropathy (Multi) Expected: 06/14/2025 (Approximate), Expires: 06/14/2026 [facility] Work Phone: Comment on above: Expected: 06/14/2025 (Approximate), Expires: 06/14/2026 Start: 06-14-2025 End: 06-14-2026 Cologuard colon cancer screening Cologuard colon cancer screening Lab Routine Colon cancer screening Expected: 06/14/2025 (Approximate), Expires: 06/14/[address] [facility] Service Area Work Phone: Comment on above: Expected: 06/14/2025 (Approximate), Expires: 06/14/2026 Start: 06-14-2025 End: 06-14-2026 Comprehensive metabolic 2000 panel - Serum or Plasma Comprehensive Metabolic Panel Lab Routine Controlled type 2 diabetes with neuropathy (Multi) Expected: 06/14/2025 (Approximate), Expires: 06/14/2026 [facility] Work Phone: Comment on above: Expected: 06/14/2025 (Approximate), Expires: 06/14/2026 Start: 06-14-2025 End: 06-14-2026 Hemoglobin A1c/Hemoglobin.total in Blood Hemoglobin A1C Lab Routine Controlled type 2 diabetes with neuropathy (Multi) Expected: 06/14/2025 (Approximate), Expires: 06/14/2026 [facility] Work Phone: Comment on above: Expected: 06/14/2025 (Approximate), Expires: 06/14/2026 Start: 06-14-2025 End: 06-14-2026 Lipid 1996 panel - Serum or Plasma Lipid Panel Lab Routine Gastroesophageal reflux disease without esophagitis Hyperlipidemia, mixed Expected: 06/14/2025 (Approximate), Expires: 06/14/2026 [facility] Work Phone: Comment on above: Expected: 06/14/2025 (Approximate), Expires: 06/14/2026 Start: 06-14-2025 End: 06-14-2026 TSH with reflex to Free T4 if abnormal TSH with reflex to Free T4 if abnormal Lab Routine Screening for thyroid disorder Expected: 06/14/2025 (Approximate), Expires: 06/14/2026 [facility] Work Phone: Comment on above: Expected: 06/14/2025 (Approximate), Expires: 06/14/2026 Start: 06-14-2025 End: 06-14-2025 Patient encounter procedure 06/14/2025 12:20 PM EDT Office Visit [facility] [address] [place] [address] Arnold Hernandes PA-C [address] [facility], [address] [place] [address] [facility] Start: 05-31-2025 End: 12-11-2025 CBC panel - Blood by Automated count CBC Lab Routine Controlled type 2 diabetes with neuropathy Expected: 05/31/2025, Expires: 12/11/2025 [facility] Work Phone: Comment on above: Expected: 05/31/2025 , Expires: 12/11/2025 Start: 05-31-2025 End: 12-11-2025 Comprehensive metabolic 2000 panel - Serum or Plasma Comprehensive Metabolic Panel Lab Routine Controlled type 2 diabetes with neuropathy Expected: 05/31/2025, Expires: 12/11/2025 [facility] Work Phone: Comment on above: Expected: 05/31/2025 , Expires: 12/11/2025 Start: 05-31-2025 End: 12-11-2025 Hemoglobin A1c/Hemoglobin.total in Blood Hemoglobin A1C Lab Routine Controlled type 2 diabetes with neuropathy Expected: 05/31/2025, Expires: 12/11/2025 [facility] Work Phone: Comment on above: Expected: 05/31/2025 , Expires: 12/11/2025 Start: 05-31-2025 End: 12-11-2025 Lipid 1996 panel - Serum or Plasma Lipid Panel Lab Routine Controlled type 2 diabetes with neuropathy Expected: 05/31/2025, Expires: 12/11/2025 [facility] Work Phone: Comment on above: Expected: 05/31/2025 , Expires: 12/11/2025 Start: 05-31-2025 End: 12-11-2025 Microalbumin/Creatinine [Mass Ratio] in Urine Albumin-Creatinine Ratio, Urine Random Lab Routine Controlled type 2 diabetes with neuropathy Expected: 05/31/2025, Expires: 12/11/2025 [facility] Work Phone: Comment on above: Expected: 05/31/2025 , Expires: 12/11/2025 Start: 05-14-2025 DTaP/Tdap/Td Vaccine s (2 - Td or Tdap) DTaP/Tdap/Td Vaccines (2 - Td or Tdap) [facility] Start: 04-19-2025 COVID-19 Vaccine () COVID-19 Vaccine () [facility] Start: 04-19-2025 COVID-19 Vaccine ( season) COVID-19 Vaccine ( season) [facility] Start: 04-19-2025 Influenza vaccination [facility] Start: 03-19-2025 Influenza vaccination Influenza Vacc ine (#1) [facility] Start: 03-10-2025 Medicare Annual Wellness Visit Medicare Annual Wellness Visit (AWV) [facility] Start: 03-08-2025 Hemoglobin A1c measurement Diabetes: Hemoglobin A1C [facility] Start: 12-11-2024 End: 02-10-2026 DBT Breast - bilateral BI mammo bilateral screening tomosynthesis Imaging Routine Screening mammogram for breast cancer Expected: 12/11/2024, Expires: 02/10/2026 [facility] Work Phone: Comment on above: Expected: 12/11/2024 , Expires: 02/10/2026 Start: 12-11-2024 End: 12-11-2025 Opiate/Opioid/Benzo Prescription Compliance Opiate/Opioid/Benzo Prescription Compliance Lab Routine Long-term use of high-risk medication Expected: 12/11/2024 (Approximate), Expires: 12/11/[address] [facility] Service Area Work Phone: Comment on above: Expected: 12/11/2024 (Approximate), Expires: 12/11/2025 Start: 12-11-2024 End: 12-11-2024 Patient encounter procedure 12/11/2024 1:15 PM EDT Office Visit [facility] [address] [place] [phone] Arnold Hernandes PA-C [address] [facility] [place] [address] [facility] Start: 12-10-2024 End: 12-10-2024 Patient encounter procedure 12/10/2024 1:15 PM EDT Office Visit [facility] [address] [place] [phone] Arnold Hernandes PA-C [address] [facility], [address] [place] [address] [facility] Start: 11-30-2024 End: 06-11-2025 CBC panel - Blood by Automated count CBC Lab Routine Controlled type 2 diabetes with neuropathy (Multi) Expected: 11/30/2024, Expires: 06/11/[address] [facility] Service Area Work Phone: Comment on above: Expected: 11/30/2024 , Expires: 06/11/2025 Start: 11-30-2024 End: 06-11-2025 Comprehensive metabolic 2000 panel - Serum or Plasma Comprehensive Metabolic Panel Lab Routine Controlled type 2 diabetes with neuropathy (Multi) Expected: 11/30/2024, Expires: 06/11/2025 [facility] Work Phone: Comment on above: Expected: 11/30/2024 , Expires: 06/11/2025 Start: 11-30-2024 End: 06-11-2025 Hemoglobin A1c/Hemoglobin.total in Blood Hemoglobin A1C Lab Routine Controlled type 2 diabetes with neuropathy (Multi) Expected: 11/30/2024, Expires: 06/11/2025 [facility] Work Phone: Comment on above: Expected: 11/30/2024 , Expires: 06/11/2025 Start: 11-30-2024 End: 06-11-2025 Lipid 1996 panel - Serum or Plasma Lipid Panel Lab Routine Mixed hyperlipidemia Expected: 11/30/2024, Expires: 06/11/2025 [facility] Work Phone: Comment on above: Expected: 11/30/2024 , Expires: 06/11/2025 Start: 11-30-2024 End: 06-11-2025 TSH with reflex to Free T4 if abnormal TSH with reflex to Free T4 if abnormal Lab Routine Screening for thyroid disorder Expected: 11/30/2024, Expires: 06/11/2025 [facility] Work Phone: Comment on above: Expected: 11/30/2024 , Expires: 06/11/2025 Start: 11-09-2024 COVID-19 Vaccine ( season) COVID-19 Vaccine () [facility] Start: 09-12-2024 Screening for malign ant neoplasm of breast Mammogram [facility] Start: 08-29-2024 Hemoglobin A1c measurement Diabetes: Hemoglobin A1C [facility] Start: 08-27-2024 Lipid panel Lipid Panel [facility] Start: 06-11-2024 End: 06-11-2024 Patient encounter procedure 06/11/2024 12:45 PM EDT Office Visit [facility] [address] [place] [phone] Arnold Hernandes PA-C [address] [facility] [place] [address] [facility] Start: 05-27-2024 End: 03-09-2025 Hemoglobin A1c/Hemoglobin.total in Blood Hemoglobin A1C Lab Routine Controlled type 2 diabetes with neuropathy (Multi) Expected: 05/27/2024 (Approximate), Expires: 03/09/[address] [facility] Service Area Work Phone: Comment on above: Expected: 05/27/2024 (Approximate), Expires: 03/09/2025 Start: 05-26-2024 Hemoglobin A1c measurement Diabetes: Hemoglobin A1C [facility] Start: 04-19-2024 Influenza vaccination [facility] Start: 03-09-2024 End: 03-09-2024 Patient encounter procedure 03/09/2024 1:15 PM EDT Office Visit [facility] [address] [place] [phone] Arnold Hernandes PA-C [address] [facility], [address] [place], [place] [id number] [facility] Start: 03-08-2024 Medicare Annual Wellness Visit Medicare Annual Wellness Visit (AWV) [facility] Start: 03-02-2024 End: 09-09-2024 Comprehensive metabolic 2000 panel - Serum or Plasma Comprehensive Metabolic Panel Lab Routine Controlled type 2 diabetes with neuropathy (CMS/HCC) Expected: 03/02/2024, Expires: 09/09/2024 [facility] Work Phone: Comment on above: Expected: 03/02/2024 , Expires: 09/09/2024 Start: 03-02-2024 End: 09-09-2024 Hemoglobin A1c/Hemoglobin.total in Blood Hemoglobin A1C Lab Routine Controlled type 2 diabetes with neuropathy (CMS/HCC) Expected: 03/02/2024, Expires: 09/09/2024 [facility] Work Phone: Comment on above: Expected: 03/02/2024 , Expires: 09/09/2024 Start: 02-23-2024 Lipid panel Lipid Panel [facility] Start: 11-26-2023 Hemoglobin A1c measurement Diabetes: Hemoglobin A1C [facility] Start: 10-30-2023 COVID-19 Vaccine () COVID-19 Vaccine () [facility] Start: 09-09-2023 End: 11-07-2024 DBT Breast - bilateral BI mammo bilateral screening tomosynthesis Imaging Routine Encounter for screening mammogram for breast cancer Expected: 09/09/2023 (Approximate), Expires: 11/07/2024 [facility] Work Phone: Comment on above: Expected: 09/09/2023 (Approximate), Expires: 11/07/2024 Start: 09-09-2023 End: 09-09-2024 DXA Skeletal system Views for bone density XR DEXA bone density Imaging Routine Postmenopausal Expected: 09/09/2023, Expires: 09/09/2024 [facility] Work Phone: Comment on above: Expected: 09/09/2023 , Expires: 09/09/2024 Start: 09-09-2023 End: 09-09-2024 Opiate/Opioid/Benzo Prescription Compliance [facility] Service Area Work Phone: Comment on above: Expected: 09/09/2023 (Approximate), Expires: 09/09/2024 Start: 09-09-2023 End: 09-09-2023 Patient encounter procedure 09/09/2023 12:45 PM EST Office Visit [facility] [address] [place] [address] Arnold Hernandes PA-C [address] [facility] [place] [address] [facility] Start: 09-02-2023 End: 03-07-2024 CBC panel - Blood by Automated count CBC Lab Routine Controlled type 2 diabetes with neuropathy (CMS/HCC) Expected: 09/02/2023, Expires: 03/07/[address] [facility] Service Area Work Phone: Comment on above: Expected: 09/02/2023 , Expires: 03/07/2024 Start: 09-02-2023 End: 03-07-2024 Comprehensive metabolic 2000 panel - Serum or Plasma Comprehensive Metabolic Panel Lab Routine Controlled type 2 diabetes with neuropathy (CMS/HCC) Expected: 09/02/2023, Expires: 03/07/2024 [facility] Work Phone: Comment on above: Expected: 09/02/2023 , Expires: 03/07/2024 Start: 09-02-2023 End: 03-07-2024 Hemoglobin A1c/Hemoglobin.total in Blood Hemoglobin A1C Lab Routine Controlled type 2 diabetes with neuropathy (CMS/HCC) Expected: 09/02/2023, Expires: 03/07/2024 [facility] Work Phone: Comment on above: Expected: 09/02/2023 , Expires: 03/07/2024 Start: 09-02-2023 End: 03-07-2024 Lipid 1996 panel - Serum or Plasma Lipid Panel Lab Routine Hyperlipidemia, unspecified hyperlipidemia type Expected: 09/02/2023, Expires: 03/07/2024 [facility] Work Phone: Comment on above: Expected: 09/02/2023 , Expires: 03/07/2024 Start: 08-29-2023 End: 08-29-2023 Professional / ancillary services management 08/29/2023 4:45 PM EST Ancillary Procedure [facility] [address] [place] [phone] Abdominal pain, epigastric [facility] Comment on above: Abdominal pain, epig astric Start: 08-29-2023 Screening for malign ant neoplasm of breast Mammogram [facility] Start: 08-29-2023 End: 08-29-2024 XR Abdomen Single view XR abdomen 1 view Imaging Routine Abdominal pain, epigastric Expected: 08/29/2023, Expires: 08/29/[address] [facility] Service Area Work Phone: Comment on above: Expected: 08/29/2023 , Expires: 08/29/2024 Start: 08-26-2023 COVID-19 Vaccine (5 - Moderna series) COVID-19 Vaccine (5 - Moderna series) [facility] Start: 06-28-2023 End: 06-28-2024 CT Sinuses WO contrast CT sinus wo IV contrast Imaging Routine Chronic maxillary sinusitis Expected: 06/28/2023, Expires: 06/28/[address] [facility] Service Area Work Phone: Comment on above: Expected: 06/28/2023 , Expires: 06/28/2024 Start: 05-25-2023 Hemoglobin A1c measurement Diabetes: Hemoglobin A1C [facility] Start: 04-19-2023 Influenza vaccination [facility] Start: 03-27-2023 Lipid panel Lipid Panel [facility] Start: 03-07-2023 FUV, Provider: Arnold Hernandes, Status: Pen, Time: 2:45 PM FUV, Provider: Arnold Hernandes, Status: Thai, Time: 2:45 PM [facility] Work Phone: Start: 03-07-2023 End: 03-07-2023 Patient encounter procedure 03/07/2023 2:45 PM EDT Office Visit [facility] [address] [place] [phone] Arnold Hernandes PA-C [address] [facility] [place] [address] [facility] Start: 09-07-2022 EPV, Provider: Arnold Hernandes, Status: Pen, Time: 2:45 PM EPV, Provider: Arnold Hernandes, Status: Pen, Time: 2:45 PM [facility] Work Phone: Start: 09-07-2022 Patient encounter procedure [facility] Medicine [place] Start: 08-27-2022 Patient encounter procedure [facility] Diagnostic Start: 06-29-2022 COVID-19 Vaccine (5 - Booster for Moderna series) COVID-19 Vaccine (5 - Booster for Moderna series) [facility] Start: 06-29-2022 COVID-19 Vaccine (5 - Moderna series) COVID-19 Vaccine (5 - Moderna series) [facility] Start: 06-27-2022 Hemoglobin A1c measurement Diabetes: Hemoglobin A1C [facility] Start: 06-07-2022 EPV, Provider: Arnold Hernandes, Status: Pen, Time: 2:45 PM EPV, Provider: Arnold Hernandes, Status: Pen, Time: 2:45 PM [facility] Work Phone: Start: 06-06-2019 Pneumococcal Vaccine : 65+ Years (2 - PCV) Pneumococcal Vaccine: 65+ Years (2 - PCV) [facility] Start: 2016 RSV patient s and/or patients aged 60+ years (1 - 1-dose 60+ series) RSV patients and/or patients aged 60+ years (1 - 1-dose 60+ series) [facility] Start: 2006 Zoster Vaccines (1 o f 2) Zoster Vaccines (1 of 2) [facility] Start: 1978 DTaP/Tdap/Td Vaccine s (1 - Tdap) DTaP/Tdap/Td Vaccines (1 - Tdap) [facility] Start: 1975 Urine screening for protein Diabetes: Urine Protein Screening [facility] Start: 1974 Hepatitis C screening Hepatitis C Sc allyson [facility] Start: 1966 Diabetic foot examination Diabetes: Foot Exam [facility] Start: 1966 Glaucoma screening Diabetes: R etinopathy Screening [facility] Start: 1966 Ophthalmic examinati on and evaluation Diabetes: Retinopathy Screening [facility] Start: 1957 MMR Vaccines (1 of 1 - Standard series) MMR Vaccines (1 of 1 - Standard series) [facility] Start: 1956 Medicare Annual Wellness Visit Medicare Annual Wellness Visit (AWV) [facility] Start: 1956 Screening for malign ant neoplasm of colon [facility] Start: 1956 Screening for osteoporosis Bone Density Scan [facility] Start: 1956 Urine screening for protein Diabetes: Urine Protein Screening [facility] Confirmation Opiate/Opioid/Benzo Prescription Compliance Confirmation Opiate/Opioid/Benzo Prescription Compliance Lab Routine Controlled type 2 diabetes with neuropathy (CMS/HCC) Long-term use of high-risk medication 09/09/2023 1:10 PM EST [facility] Work Phone: End: 12-14-2024 DBT Breast - bilateral [facility] Service Area Work Phone: Comment on above: Once for 1 Occurrenc es starting 12/14/2024 until 12/14/2024 End: 09-12-2023 DXA Skeletal system Views for bone density [facility] Area Work Phone: Comment on above: Once for 1 Occurrenc es starting 09/12/2023 until 09/12/2023 OOB Internal Tracking OOB Telemarketing Agent al Tracking Lab Routine Controlled type 2 diabetes with neuropathy (CMS/HCC) Long-term use of high-risk medication 09/09/2023 1:10 PM EST [facility] Work Phone: Screen Opiate/Opioid/Benzo Prescription Compliance Screen Opiate/Opioid/Benzo Prescription Compliance Lab Routine Controlled type 2 diabetes with neuropathy (CMS/HCC) Long-term use of high-risk medication 09/09/2023 1:11 PM EST [facility] Work Phone: Immunizations Immunization Date Immunization Notes Care Provider Javi goodson 09-18-2024 zoster vaccine recombinant Arnold Stentz PA-C Work Phone: [facility] Work Phone: 09-14-2024 tetanus toxoid, redu manuel diphtheria toxoid, and acellular pertussis vaccine, adsorbed Jonelle Catherine [employer] COATINGS INSTALLER-SEISMIC ENGINEER Work Phone: [facility] 04-15-2024 zoster vaccine recombinant Arnold Stentz PA-C Work Phone: [facility] Work Phone: 07-01-2023 Moderna COVID-19 vaccine, Fall 2022, 12 yeasrs and older (50mcg/0.5mL) Marcos Arita EPO[employer] COATINGS INSTALLER-SEISMIC ENGINEER Work Phone: [facility] Work Phone: 06-26-2023 Pneumococcal conjuga te vaccine, 20-valent (PREVNAR 20) Marcos Arita E[employer] COATINGS INSTALLER-SEISMIC ENGINEER Work Phone: [facility] Work Phone: 06-21-2023 RSV, 60 Years And Ol amber (AREXVY) Marcos Arita EPOXY COATINGS INSTALLER-SEISMIC ENGINEER Work Phone: [facility] Work Phone: 05-04-2022 Pfizer COVID-19 Vac Bivalent 30 MCG/0.3ML Intramuscular Suspension Arnold Stentz Work Phone: [facility] Work Phone: 11-29-2021 Moderna COVID-19 Vac cine 100 MCG/0.5ML Intramuscular Suspension Arnold Stentz Work Phone: [facility] Work Phone: 06-12-2021 Moderna COVID-19 Vac cine 100 MCG/0.5ML Intramuscular Suspension Arnold Stentz Work Phone: [facility] Work Phone: 11-24-2020 Moderna COVID-19 Vac cine 100 MCG/0.5ML Intramuscular Suspension Arnold Stentz Work Phone: [facility] Work Phone: 10-26-2020 Moderna COVID-19 Vac cine 100 MCG/0.5ML Intramuscular Suspension Arnold Stentz Work Phone: [facility] Work Phone: 08-07-2018 zoster vaccine recombinant Marcos Tuckerd E[employer] COATINGS INSTALLER-SEISMIC ENGINEER Work Phone: [facility] Work Phone: 06-06-2018 pneumococcal polysaccharide vaccine, 23 valent Arnold Stentz Work Phone: [facility] Work Phone: Comment on above: Series: 04-30-2018 pneumococcal polysaccharide vaccine, 23 valent Marcos Juan J E[employer] COATINGS INSTALLER-SEISMIC ENGINEER Work Phone: [facility] Work Phone: 04-30-2018 zoster vaccine recombinant Marcos Tuckerd E[employer] COATINGS INSTALLER-SEISMIC ENGINEER Work Phone: [facility] Work Phone: 05-28-2017 influenza, injectabl e, quadrivalent, preservative free Marcos Juan J [employer] COATINGS INSTALLER-SEISMIC ENGINEER Work Phone: [facility] Work Phone: 05-28-2017 influenza virus vacc ine, unspecified formulation Arnold Hernandes PA-C Work Phone: [facility] Work Phone: 05-14-2015 influenza virus vacc ine, unspecified formulation Marcos Juan J E[employer] COATINGS INSTALLER-SEISMIC ENGINEER Work Phone: [facility] Work Phone: 05-14-2015 tetanus toxoid, redu manuel diphtheria toxoid, and acellular pertussis vaccine, adsorbed Marcos Juan J E[employer] COATINGS INSTALLER-SEISMIC ENGINEER Work Phone: [facility] Work Phone: Payers Date Payer Category Payer Self-pay 2021 Medicare [id number] 2021 Medicare [id number] 2018 Worker's Compensation 2009 [employer] [facility] [place] [facility] [id number] 2009 Unknown 2009 Unknown [id number] 1956 Unknown [id number] 1956 Unknown [id number] 1956 Unknown [id number] 1955 Unknown [id number] 1955 Unknown [id number] [id number]6 1955 Unknown [id number] 2.16.840.1.862913.3.579.2.356 1955 Unknown [id number] 2.16.840.1.293482.3.579.2.1245 1956 Unknown [id number] 2.16.840.1.895779.3.579.2.1245 1956 Unknown [id number] 2.16.840.1.578268.3.579.2.1245 1956 Unknown [id number] 2.16.840.1.046598.3.579.2.1245 1956 Unknown [id number] 2.16.840.1.651161.3.579.2.1245 1956 Unknown [id number] 2.16.840.1.982467.3.579.2.1243 1956 Unknown [id number] 2.16.840.1.849203.3.579.2.1243 1956 Unknown [id number] 2.16.840.1.072416.3.579.2.124 1956 Unknown [id number] 2.16.840.1.072263.3.579.2.1244 1956 Unknown [id number] [id number] Unknown [id number] Social History Date Type Detail Facility Start: 12-17-2022 End: 12-11-2024 Never a smoker Never a smoker [facility] Work Phone: Tobacco smoking consumption unknown [facility] Start: 12-17-2022 Tobacco smoking status NHIS Never smoked tobacco [facility] Work Phone: Start: 12-17-2022 Tobacco use and exposure Smokeless tobacco non-user [facility] Work Phone: Start: 12-17-2022 End: 12-11-2024 Tobacco use panel [facility] Work Phone: Start: 1955 Sex Assigned At Not on file [facility] Work Phone: Start: 12-07-2022 End: 12-14-2024 Exposure to SARS-CoV-2 (event) Not sure [facility] Start: 03-07-2023 End: 06-14-2025 Alcohol intake Lifetime non-drinker (finding) [facility] Work Phone: Start: 07-13-2022 Sex Female [facility] Start: 07-13-2022 Sex Female (finding) [facility] Medical Equipment Procedure Code Equipment Code Equipment Origin al Text Equipment Identifier Dates [id number] Start: 05-05-2025 End: 03-07-2023 1 strip by Not Applicable route 1 (one) time per week. [id number] Start: 03-07-2023 End: 03-09-2024 1 strip by Not Applicable route 1 (one) time per week. [id number] Start: 03-15-2024 End: 03-15-2025 Functional Status Date Assessment Result Facility 06-14-2025 Functional status 126/74 [facility] Work Phone: 06-14-2025 Vital signs 80 06/14/2025 12 :27 PM EDT Juliann Wolf CMA [facility] Work Phone: 06-14-2025 Patient [facility] ionnaire 2 item (PHQ-2) [Reported] [facility] Work Phone: 06-14-2025 [facility] Work Phone: 12-11-2024 Patient Health [facility] ionnaire 2 item (PHQ-2) [Reported] [facility] Work Phone: Clinical Notes 03-27-2022 to 06-14-2025 Assessment & Plan Note - Arnold Hernandes PA-C - 06/14/2025 12:20 PM EDTAssessment & Plan Note - Arnold Hernandes PA-C - 06/14/2025 12:20 PM EDTJuobinna Hernandes PA-C - 06/14/2025 12:20 PM EDT Note Date & Type Note Facility 06-14-2025 Evaluation + Plan note Associated Problem(s): Seasonal allergies Orders: fluticasone (Flonase) 50 mcg/actuation nasal spray; Administer 1 spray into each nostril 2 times a day. [facility] Work Phone: 06-14-2025 Evaluation + Plan note Associated Problem(s): Migraine without status migrainosus, not intractable Orders: propranolol (Inderal) 80 mg tablet; Take 1 tablet (80 mg) by mouth once daily. [facility] Work Phone: 06-14-2025 Evaluation + Plan note Associated Problem(s): Controlled type 2 diabetes with neuropathy (Multi) Orders: CBC; Future Hemoglobin A1C; Future Comprehensive Metabolic Panel; Future [facility] Work Phone: 06-14-2025 Evaluation + Plan note Associated Problem(s): Hyperlipidemia [facility] Work Phone: 06-14-2025 Evaluation + Plan note Associated Problem(s): Gastroesophageal reflux disease Orders: Lipid Panel; Future [facility] Work Phone: 06-14-2025 History of Present illness Narrative Subjective Reason for Visit: Fredi Parekh is an 69 y.o. female here for a Medicare Wellness visit. Past Medical, Surgical, and Family History reviewed and updated in chart. Reviewed all medications by prescribing practitioner or clinical pharmacist (such as prescriptions, OTCs, herbal therapies and supplements) and documented in the medical record. HPI DM2 W/NEUROPATHY: Last A1C 5.4. Compliant with Mounjaro, no SE. Stable. Lyrica effective at reducing neuropathy which consists burning/pain BL feet and some legs. She does daily foot exams. Sees eye doctor regularly. HYPERLIPIDEMIA: Atorvastatin, compliant, no SE. Lipids good last check. HERPES: [facility] and she has not had a breakout in years. RA/FIBROMYALGIA: Following with rheum, stable. Taking diclofenac and prednisone prn. Taking folic acid as well. GERD: Stable on 40mg omeprazole. No SE. MIGRAINES: Propranolol as prophylaxis. Excedrin migraine is effective at aborting. Symptoms of her migraines include nausea/visual changes/photophobia. SEASONAL ALLERGIES: Singulair, Loratadine, Flonase effective. Stable. NAUSEA: Stable on Zofran prn. HEMORRHOIDS: Chronic, worse recently. OTC topical helpful. Chronic constipation is cause. History of thyroid nodule which was biopsied and tracked for years w/no growth, deemed stable with no further surveillance required per patient. Cologuard good 06/20/22, due again 2024. Mammogram 2024 DEXA 2023 showed osteopenia, taking vit D/calcium daily. Patient Care Team: Arnold Hernandes PA-C as PCP - General Arnold Hernandes PA-C as PCP - MSSP ACO Attributed Provider Review of Systems Constitutional: Negative. Respiratory: Negative. Cardiovascular: Negative. Gastrointestinal: Positive for constipation. Objective Vitals: BP 126/74 Pulse 80 Ht 1.626 m (5' 4) Wt 67.6 kg (149 lb) SpO2 98% BMI 25.58 kg/m Physical Exam Constitutional: General: She is not in acute distress. Appearance: Normal appearance. She is not ill-appearing. HENT: Head: Normocephalic and atraumatic. Eyes: Extraocular Movements: Extraocular movements intact. Conjunctiva/sclera: Conjunctivae normal. Cardiovascular: Rate and Rhythm: Normal rate. Pulmonary: Effort: Pulmonary effort is normal. Abdominal: General: There is no distension. Musculoskeletal: General: Normal range of motion. Cervical back: Normal range of motion. Skin: General: Skin is warm and dry. Neurological: General: No focal deficit present. Mental Status: She is alert and oriented to person, place, and time. Psychiatric: Mood and Affect: Mood normal. Behavior: Behavior normal. Thought Content: Thought content normal. Judgment: Judgment normal. Assessment & Plan Seasonal allergies Orders: fluticasone (Flonase) 50 mcg/actuation nasal spray; Administer 1 spray into each nostril 2 times a day. Migraine without status migrainosus, not intractable, unspecified migraine type Orders: propranolol (Inderal) 80 mg tablet; Take 1 tablet (80 mg) by mouth once daily. Routine general medical examination at health care facility Colon cancer screening Orders: Cologuard colon cancer screening; Future Controlled type 2 diabetes with neuropathy (Multi) Orders: CBC; Future Hemoglobin A1C; Future Comprehensive Metabolic Panel; Future Screening for thyroid disorder Orders: TSH with reflex to Free T4 if abnormal; Future Mixed hyperlipidemia Gastroesophageal reflux disease without esophagitis Orders: Lipid Panel; Future Hyperlipidemia, mixed Orders: Lipid Panel; Future Discussed conservative measures for constipation including increasing hydration and fiber. May trial Linzess if not effective. No medication changes today. Labs reviewed and stable. Cologuard ordered. Follow up 6 months or sooner prn. documented in this encounter [facility] Work Phone: 06-14-2025 Miscellaneous Notes Associated Problem(s): Seasonal allergies Orders: fluticasone (Flonase) 50 mcg/actuation nasal spray; Administer 1 spray into each nostril 2 times a day. Associated Problem(s): Migraine without status migrainosus, not intractable Orders: propranolol (Inderal) 80 mg tablet; Take 1 tablet (80 mg) by mouth once daily. Associated Problem(s): Controlled type 2 diabetes with neuropathy (Multi) Orders: CBC; Future Hemoglobin A1C; Future Comprehensive Metabolic Panel; Future Associated Problem(s): Hyperlipidemia Associated Problem(s): Gastroesophageal reflux disease Orders: Lipid Panel; Future documented in this encounter [facility] Work Phone: 05-05-2025 History of Present illness Narrative [facility] NOTE: Name: Fredi Parekh, 69 y.o. CSN:[id number] ALL: Allergies[1] Chief Complaint: Eye Problem (Bilateral eye irritation and itching X 3 days ) Encounter Date: 05/05/2025 HPI: The history was obtained from the patient. Fredi is a 69 y.o. female, who presents with a chief complaint of bilateral eye irritation, left worse than right that began approximately 3 days ago while at [employer] where she felt the air conditioner bloat possible dust into her eye. Does report starting new medication unsure of what the name is that cannot because increased risk of glaucoma. 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 Reports visual changes on Saturday while at [employer], denies any visual changes or difficulty at this time. Reports foreign body sensation to the left eye only. denies fevers, chills, upper respiratory symptoms. PMHx: Medical History[2] Current Medications[3] PMSx: Surgical History[4] Fam Hx: Family History[5] SOC. Hx: Social History Socioeconomic History Marital status: Spouse name: Not on file Number of children: Not on file Years of education: Not on file Highest education level: Not on file Occupational History Not on file Tobacco Use Smoking status: Never Smokeless tobacco: Never Vaping Use Vaping status: Never Used Substance and Sexual Activity Alcohol use: Never Drug use: Never Sexual activity: Not on file Other Topics Concern Not on file Social History Narrative Not on file Social Drivers of Health Financial Resource Strain: Not on file Food Insecurity: Not on file Transportation Needs: Not on file Physical Activity: Not on file Stress: Not on file Social Connections: Not on file Intimate Partner Violence: Not on file Housing Stability: Not on file Vitals: 05/05/25 1027 BP: 126/78 Pulse: 68 Temp: 36.3 C (97.3 F) SpO2: 97% 64.9 kg (143 lb) Physical Exam Vitals and nursing note reviewed. Constitutional: Appearance: Normal appearance. She is not ill-appearing. HENT: Head: Normocephalic and atraumatic. Mouth/Throat: Mouth: Mucous membranes are moist. Eyes: General: Lids are normal. Lids are everted, no foreign bodies appreciated. Vision grossly intact. Gaze aligned appropriately. Right eye: No foreign body, discharge or hordeolum. Left eye: No foreign body, discharge or hordeolum. Extraocular Movements: Right eye: Normal extraocular motion. Left eye: Normal extraocular motion. Conjunctiva/sclera: Right eye: Right conjunctiva is not injected. No chemosis, exudate or hemorrhage. Left eye: Left conjunctiva is not injected. No chemosis, exudate or hemorrhage. Pupils: Pupils are equal, round, and reactive to light. Slit lamp exam: Right eye: No corneal flare, corneal ulcer, foreign body, hyphema, hypopyon, anterior chamber bulge, anterior chamber flares or photophobia. Left eye: No corneal flare, corneal ulcer, foreign body, hyphema, hypopyon, anterior chamber bulge, anterior chamber flares or photophobia. Cardiovascular: Rate and Rhythm: Normal rate and regular rhythm. Heart sounds: Normal heart sounds. Pulmonary: Breath sounds: Normal breath sounds. Abdominal: General: Bowel sounds are normal. Musculoskeletal: General: Normal range of motion. Cervical back: Normal range of motion. Skin: General: Skin is dry. Capillary Refill: Capillary refill takes less than 2 seconds. Neurological: Mental Status: She is alert and oriented to person, place, and time. __ I did personally review Fredi's past medical history, surgical history, social history, as well as family history (when relevant). In this case, I also oversaw the her drug management by reviewing her medication list, allergy list, as well as the medications that I prescribed during the UC course and/or recommended as an out-patient (including possible OTC medications such as acetaminophen, NSAIDs , etc). After reviewing the items above, I did look at previous medical documentation, such as recent hospitalizations, office visits, and/or recent consultations with PCP/specialist. SDOH: Another factor that I considered in Fredi's care was her Social Determinants of Health (SDOH). During this encounter, she did not have social determinants of health. Those SDOH influencing Fredi's care are: none ___ COURSE/MEDICAL DECISION MAKING: Fredi is a 69 y.o., who presents with a working diagnosis of 1. Left eye pain with a differential to include: viral conjunctivitis, allergic conjunctivitis, keratitis and uveitis. Plan: Tetracaine eyedrop applied in clinic along with fluorescein. Visual exam unremarkable at today's visit Strongly recommended follow-up with ophthalmology as soon as possible due to new medication with possible side effect of glaucoma, visual disturbance on Saturday. Commended following up with Dr. Pablo and Lashaun as he does except walk-in visits for urgent issues or [facility] in [place] Erythromycin ointment to be utilized until can be seen by her vp customer development Return to urgent care, primary care provider, or emergency department with worsening symptoms No red flags on exam. Plan of care reviewed with patient, agreeable to discharge Serina Viera DNP Advanced Practice Provider [facility] Please note: While the patient may or may not have received printed discharge paperwork, all relevant medical findings, test results, and treatment details are accessible through the electronic medical record system. The patient is encouraged to review their chart via the patient portal for comprehensive information and follow-up instructions. [1] Allergies Allergen Reactions Cortisone Hives Duloxetine Nausea/vomiting Fluoxetine Other Sertraline Other [2] No past medical history on file. [3] Current Outpatient Medications Medication Sig Dispense Refill acyclovir (Zovirax) 400 mg tablet Take 1 tablet (400 mg) by mouth 2 times a day. 180 tablet 3 atorvastatin (Lipitor) 20 mg tablet Take 1 tablet (20 mg) by mouth once daily. 90 tablet 3 DULoxetine (Cymbalta) [address] capsule Take 1 capsule (60 mg) by mouth once daily. Do not crush or chew. fluticasone (Flonase) 50 mcg/actuation nasal spray Administer 1 spray into each nostril 2 times a day. 16 g 3 folic acid (Folvite) 1 mg tablet Take 2 tablets (2 mg) by mouth early in the morning.. loratadine (Claritin) 10 mg tablet Take 1 tablet (10 mg) by mouth once daily. methotrexate, PF, 7.5 mg/0.3 mL syringe Inject under the skin. montelukast (Singulair) 10 mg tablet Take 1 tablet (10 mg) by mouth once daily at bedtime. 90 tablet 3 omeprazole (PriLOSEC) [address] capsule Take 1 capsule (40 mg) by mouth once daily. 90 capsule 3 pregabalin (Lyrica) 300 mg capsule Take 1 capsule (300 mg) by mouth once daily. 30 capsule 0 tirzepatide (Mounjaro) 10 mg/0.5 mL pen injector Inject 10 mg under the skin 1 (one) time per week. 2 mL 1 erythromycin (Romycin) 5 mg/gram (0.5 %) ophthalmic ointment Apply to left eye 3 times a day for [address] a 1/2 inch ribbon of ointment into the lower eyelid. 3.5 g 0 pregabalin (Lyrica) 225 mg capsule Take 1 capsule (225 mg) by mouth once daily. 30 capsule 0 propranolol (Inderal) 80 mg tablet Take 1 tablet (80 mg) by mouth once daily. 90 tablet 3 Current Facility-Administered Medications Medication Dose Route Frequency Provider Last Rate Last Admin fluorescein 0.6 mg ophthalmic strip 1 strip 1 strip Left Eye Once CARLI Capellan tetracaine (Altacaine) 0.5 % ophthalmic solution 1 drop 1 drop Left Eye Once CARLI Capellan [4] Past Surgical History: Procedure Laterality Date OTHER SURGICAL HISTORY 03/05/2022 section OTHER SURGICAL HISTORY 03/05/2022 Carpal tunnel surgery OTHER SURGICAL HISTORY 03/05/2022 Tenotomy OTHER SURGICAL HISTORY 03/05/2022 Hysterectomy total OTHER SURGICAL HISTORY 03/05/2022 Tonsillectomy with adenoidectomy [5] Family History Problem Relation Name Age of Onset Diabetes Mother Hypertension Mother Diabetes Father Asthma Father COPD Father Emphysema Father Other (bladder cancer) Father Heart attack Father documented in this encounter [facility] Work Phone: 12-11-2024 History of Present illness Narrative Subjective Patient ID: Fredi Parekh is a 69 y.o. female who presents for pt here for med check (Pt c/o daily nausea , pt c/o red bumps all over ). HPI DM2 W/NEUROPATHY: Last A1C 6.6. No longer taking metformin, but has started Ozempic, has been having some pretty significant nausea with Ozempic. Stable. Lyrica effective at reducing neuropathy which consists burning/pain BL feet and some legs. She does daily foot exams. Sees eye doctor regularly. HYPERLIPIDEMIA: Rosuvastatin, compliant, no SE. Lipids good except triglycerides still elevated last check. HERPES: [facility] put [facility] and she has not had a breakout in years. RA/FIBROMYALGIA: Following with rheum, stable. Taking diclofenac and prednisone prn. Taking folic acid as well. GERD: Stable on 40mg omeprazole. No SE. MIGRAINES: Propranolol as prophylaxis. Excedrin migraine is effective at aborting. Symptoms of her migraines include nausea/visual changes/photophobia. SEASONAL ALLERGIES: Singulair, Loratadine, Flonase effective. Stable. NAUSEA: Stable on Zofran prn. History of thyroid nodule which was biopsied and tracked for years w/no growth, deemed stable with no further surveillance required per patient. Cologuard good 06/20/22, due again 2024. Would not like referral to [facility] for women's care at this time. Mammogram good 2023, due 08/2024. DEXA 2023 showed osteopenia, taking vit D/calcium daily. OARRS: No data recorded I have personally reviewed the OARRS report for Fredi Parekh. I have considered the risks of abuse, dependence, addiction and diversion and I believe that it is clinically appropriate for Fredi Parekh to be prescribed this medication Is the patient prescribed a combination of a benzodiazepine and opioid? No Last Urine Drug Screen / ordered today: Yes No results found for this or any previous visit (from the past 8760 hours). Results are as expected. Controlled Substance Agreement: Date of the Last Agreement: 09/09/23 Reviewed Controlled Substance Agreement including but not limited to the benefits, risks, and alternatives to treatment with a Controlled Substance medication(s). Lyrica: What is the patient's goal of therapy? Reduced neuropathy Is this being achieved with current treatment? Yes Pain Assessment: No data recorded Activities of Daily Living: Is your overall impression that this patient is benefiting (symptom reduction outweighs side effects) from Lyrica therapy? Yes 1. Physical Functioning: Better 2. Family Relationship: Better 3. Social Relationship: Better 4. Mood: Better 5. Sleep Patterns: Better 6. Overall Function: Better Review of Systems Constitutional: Negative. Respiratory: Negative. Cardiovascular: Negative. Gastrointestinal: Negative. Objective BP 128/68 Pulse 68 Ht 1.638 m (5' 4.5) Wt 71.7 kg (158 lb) SpO2 97% BMI 26.70 kg/m Physical Exam Constitutional: General: She is not in acute distress. Appearance: Normal appearance. She is not ill-appearing. HENT: Head: Normocephalic and atraumatic. Eyes: Extraocular Movements: Extraocular movements intact. Conjunctiva/sclera: Conjunctivae normal. Cardiovascular: Rate and Rhythm: Normal rate. Pulmonary: Effort: Pulmonary effort is normal. Abdominal: General: There is no distension. Musculoskeletal: General: Normal range of motion. Cervical back: Normal range of motion. Skin: General: Skin is warm and dry. Neurological: General: No focal deficit present. Mental Status: She is alert and oriented to person, place, and time. Psychiatric: Mood and Affect: Mood normal. Behavior: Behavior normal. Thought Content: Thought content normal. Judgment: Judgment normal. Assessment/Plan Increase Lyrica back up to 300mg daily. Stop Ozempic, start Mounjaro. Switch to atorvastatin. No other medication changes today. Labs reviewed and stable. Mammo ordered. Follow up 6 months with fasting labs prior. documented in this encounter [facility] Work Phone: 09-14-2024 History of Present illness Narrative Images from the original note were not included. [facility] NOTE: Name: Fredi Parekh, 68 y.o. CSN:[id number] PCP: Arnold Hrenandes PA-C ALL: Allergies Allergen Reactions Cortisone Hives Duloxetine Nausea/vomiting Fluoxetine Other Sertraline Other History: Chief Complaint: Animal Bite (Dog bite on left elbow and right hand x 1 day) Encounter Date: 09/14/2024 HPI: The history was obtained from the patient. Fredi is a 68 y.o. female, who presents with a chief complaint of Animal Bite (Dog bite on left elbow and right hand x 1 day) Dog bite occurred yesterday evening after trying to put her dog to bed in his cage. Did have a heavy sweatshirt on with bite to the elbow which did not bleed, mild bleeding noted to the right hand after initial bite. Bites were cleansed with water and dressing applied yesterday evening. Denies any drainage from skin tears. Reports up-to-date vaccines for her pet. Last Tdap completed 10 years ago. PMHx: History reviewed. No pertinent past medical history. Current Outpatient Medications Medication Sig Dispense Refill acyclovir (Zovirax) 400 mg tablet Take 1 tablet (400 mg) by mouth 2 times a day. 180 tablet 3 blood sugar diagnostic (Accu-Chek Guide test strips) strip 1 strip by Not Applicable route 1 (one) time per week. 20 strip 3 diclofenac (Voltaren) 50 mg EC tablet Take 1 tablet (50 mg) by mouth 2 times a day. Do not crush, chew, or split. 180 tablet 3 DULoxetine (Cymbalta) [address] capsule Take 1 capsule (30 mg) by mouth once daily. Do not crush or chew. fluticasone (Flonase) 50 mcg/actuation nasal spray Administer 1 spray into each nostril 2 times a day. 16 g 3 folic acid (Folvite) 1 mg tablet Take 2 tablets (2 mg) by mouth early in the morning.. loratadine (Claritin) 10 mg tablet Take 1 tablet (10 mg) by mouth once daily. methotrexate, PF, 7.5 mg/0.3 mL syringe Inject under the skin. montelukast (Singulair) 10 mg tablet Take 1 tablet (10 mg) by mouth once daily at bedtime. 90 tablet 3 omeprazole (PriLOSEC) [address] capsule Take 1 capsule (40 mg) by mouth once daily. 90 capsule 3 ondansetron (Zofran) 4 mg tablet Take 1 tablet (4 mg) by mouth every 6 hours. 40 tablet 3 pregabalin (Lyrica) 225 mg capsule Take 1 capsule (225 mg) by mouth once daily. 30 capsule 0 propranolol (Inderal) 80 mg tablet Take 1 tablet (80 mg) by mouth once daily. 90 tablet 3 rosuvastatin (Crestor) 10 mg tablet Take 1 tablet (10 mg) by mouth once daily at bedtime. 90 tablet 3 semaglutide (Ozempic) 2 mg/dose (8 mg/3 mL) pen injector Inject 2 mg under the skin every 7 days. 9 mL 3 amoxicillin-pot clavulanate (Augmentin) 875-125 mg tablet Take 1 tablet by mouth 2 times a day for 10 days. 20 tablet 0 bacitracin 500 unit/gram ointment Apply topically 2 times a day. 14 g 0 methotrexate (Trexall) 2.5 mg tablet Take 5 tablets (12.5 mg total) by mouth 1 (one) time per week. (Patient not taking: Reported on 09/14/2024) No current facility-administered medications for this visit. PMSx: Past Surgical History: Procedure Laterality Date OTHER SURGICAL HISTORY 03/05/2022 section OTHER SURGICAL HISTORY 03/05/2022 Carpal tunnel surgery OTHER SURGICAL HISTORY 03/05/2022 Tenotomy OTHER SURGICAL HISTORY 03/05/2022 Hysterectomy total OTHER SURGICAL HISTORY 03/05/2022 Tonsillectomy with adenoidectomy Fam Hx: Family History Problem Relation Name Age of Onset Diabetes Mother Hypertension Mother Diabetes Father Asthma Father COPD Father Emphysema Father Other (bladder cancer) Father Heart attack Father SOC. Hx: Social History Socioeconomic History Marital status: Spouse name: Not on file Number of children: Not on file Years of education: Not on file Highest education level: Not on file Occupational History Not on file Tobacco Use Smoking status: Never Smokeless tobacco: Never Vaping Use Vaping status: Never Used Substance and Sexual Activity Alcohol use: Never Drug use: Never Sexual activity: Not on file Other Topics Concern Not on file Social History Narrative Not on file Social Drivers of Health Financial Resource Strain: Not on file Food Insecurity: Not on file Transportation Needs: Not on file Physical Activity: Not on file Stress: Not on file Social Connections: Not on file Intimate Partner Violence: Not on file Housing Stability: Not on file Vitals: 09/14/24 1217 BP: 111/76 Pulse: 77 Resp: 14 Temp: 35.8 C (96.5 F) SpO2: 95% 73.5 kg (162 lb) Physical Exam Vitals and nursing note reviewed. Constitutional: Appearance: Normal appearance. HENT: Head: Normocephalic and atraumatic. Mouth/Throat: Mouth: Mucous membranes are moist. Pharynx: Oropharynx is clear. Eyes: Pupils: Pupils are equal, round, and reactive to light. Cardiovascular: Rate and Rhythm: Normal rate and regular rhythm. Pulses: Normal pulses. Heart sounds: Normal heart sounds. Pulmonary: Effort: Pulmonary effort is normal. Breath sounds: Normal breath sounds. Abdominal: General: Abdomen is flat. Bowel sounds are normal. Palpations: Abdomen is soft. Musculoskeletal: General: Normal range of motion. Cervical back: Normal range of motion. Skin: General: Skin is warm and dry. Capillary Refill: Capillary refill takes less than 2 seconds. Neurological: Mental Status: She is alert and oriented to person, place, and time. LABORATORY @ RADIOLOGICAL IMAGING (if done): No results found for this or any previous visit (from the past 24 hours). __ I did personally review Fredi's past medical history, surgical history, social history, as well as family history (when relevant). In this case, I also oversaw the her drug management by reviewing her medication list, allergy list, as well as the medications that I prescribed during the UC course and/or recommended as an out-patient (including possible OTC medications such as acetaminophen, NSAIDs , etc). After reviewing the items above, I did look at previous medical documentation, such as recent hospitalizations, office visits, and/or recent consultations with PCP/specialist. SDOH: Another factor that I considered in Fredi's care was her Social Determinants of Health (SDOH). During this encounter, she did not have social determinants of health. Those SDOH influencing Fredi's care are: none ___ COURSE/MEDICAL DECISION MAKING: Fredi is a 68 y.o., who presents with a working diagnosis of 1. Dog bite, initial encounter Fredi was seen today for animal bite. Diagnoses and all orders for this visit: Dog bite, initial encounter (Primary) - amoxicillin-pot clavulanate (Augmentin) 875-125 mg tablet; Take 1 tablet by mouth 2 times a day for 10 days. - Tdap vaccine, age 7 years and older (BOOSTRIX) - bacitracin 500 unit/gram ointment; Apply topically 2 times a day. Plan of care reviewed with patient. If symptoms change and/or worsen will follow-up with primary care provider, return to urgent care, or go to the nearest emergency department for further evaluation. Patient states understanding and is agreeable with plan of care. Jonelle Viera APRN, [facility] Advanced Practice Provider [facility] Please note: While the patient may or may not have received printed discharge paperwork, all relevant medical findings, test results, and treatment details are accessible through the electronic medical record system. The patient is encouraged to review their chart via the patient portal for comprehensive information and follow-up instructions. documented in this encounter [facility] Work Phone: 06-11-2024 History of Present illness Narrative Subjective Patient ID: Fredi Parekh is a 68 y.o. female who presents for pt here for med check . HPI DM2 W/NEUROPATHY: Last A1C 6.6. No longer taking metformin, but has started Ozempic, no SE. Stable. Lyrica effective at reducing neuropathy which consists burning/pain BL feet and some legs. She does daily foot exams. Sees eye doctor regularly. HYPERLIPIDEMIA: Rosuvastatin, compliant, no SE. Lipids good except triglycerides still elevated last check. HERPES: [facility] and she has not had a breakout in years. RA/FIBROMYALGIA: Following with rheum, just started methotrexate recently. Taking diclofenac and prednisone prn. Taking folic acid as well. GERD: Stable on 40mg omeprazole. No SE. MIGRAINES: Propranolol as prophylaxis. Excedrin migraine is effective at aborting. Symptoms of her migraines include nausea/visual changes/photophobia. SEASONAL ALLERGIES: Singulair, Loratadine, Flonase effective. Stable. NAUSEA: Stable on Zofran prn. History of thyroid nodule which was biopsied and tracked for years w/no growth, deemed stable with no further surveillance required per patient. Cologuard good 06/20/22, due again 2024. Would not like referral to [facility] for women's care at this time. Mammogram good 2023, due 08/2024. DEXA 2023 showed osteopenia, taking vit D/calcium daily. Review of Systems Constitutional: Negative. Respiratory: Negative. Cardiovascular: Negative. Gastrointestinal: Negative. Objective BP 110/70 Pulse 81 Ht 1.626 m (5' 4) Wt 81.2 kg (179 lb) SpO2 95% BMI 30.73 kg/m Physical Exam Constitutional: General: She is not in acute distress. Appearance: Normal appearance. She is not ill-appearing. HENT: Head: Normocephalic and atraumatic. Eyes: Extraocular Movements: Extraocular movements intact. Conjunctiva/sclera: Conjunctivae normal. Cardiovascular: Rate and Rhythm: Normal rate. Pulmonary: Effort: Pulmonary effort is normal. Abdominal: General: There is no distension. Musculoskeletal: General: Normal range of motion. Cervical back: Normal range of motion. Skin: General: Skin is warm and dry. Neurological: General: No focal deficit present. Mental Status: She is alert and oriented to person, place, and time. Psychiatric: Mood and Affect: Mood normal. Behavior: Behavior normal. Thought Content: Thought content normal. Judgment: Judgment normal. Assessment/Plan Chronic conditions stable. No medication changes today. Seeing specialists appropriately. Labs reviewed and stable. Follow up 6 months with fasting labs prior. documented in this encounter [facility] Work Phone: 03-09-2024 History of Present illness Narrative Subjective Reason for Visit: Fredi Parekh is an 68 y.o. female here for a Medicare Wellness visit. Past Medical, Surgical, and Family History reviewed and updated in chart. Reviewed all medications by prescribing practitioner or clinical pharmacist (such as prescriptions, OTCs, herbal therapies and supplements) and documented in the medical record. HPI DM2 W/NEUROPATHY: Last A1C 7.3% 02/22/23. No longer taking metformin. Blood sugar at home has averaged around 120. Lyrica effective at reducing neuropathy which consists burning/pain BL feet and some legs. She does daily foot exams. Sees eye doctor regularly. HYPERLIPIDEMIA: Rosuvastatin, compliant, no SE. Lipids good except triglycerides still elevated 02/22/23. HERPES: [facility] chron[facility] and she has not had a breakout in years. RA/FIBROMYALGIA: Following with rheum, just started methotrexate recently. Taking diclofenac daily and prednisone prn. Taking folic acid as well. GERD: Last visit needed to increase omeprazole to 40mg, she has made changes and is ready to decrease to 20mg daily at next refill. No SE. MIGRAINES: Propranolol as prophylaxis. Excedrin migraine are effective at aborting. Symptoms of her migraines include nausea/visual changes/photophobia. SEASONAL ALLERGIES: Singulair, Loratadine, Flonase effective. Stable. NAUSEA: Stable on Zofran prn. History of thyroid nodule which was biopsied and tracked for years w/no growth, deemed stable with no further surveillance required per patient. Cologuard good 06/20/22, due again 2024. Would not like referral to [facility] for women's care at this time. Mammogram good 08/29/22, due now. DEXA 2023 showed osteopenia, taking vit D/calcium daily. Patient Care Team: Arnold Hernandes PA-C as PCP - General Arnold Hernandes PA-C as PCP - [facility] ACO Attributed Provider Review of Systems Objective Vitals: BP 120/68 Pulse 65 Ht 1.626 m (5' 4) Wt 84.4 kg (186 lb) SpO2 92% BMI 31.93 kg/m Physical Exam Assessment/Plan Problem List Items Addressed This Visit ICD-10-CM Controlled type 2 diabetes with neuropathy (Multi) E11.40 Hyperlipidemia E78.5 Nausea R11.0 Seasonal allergies J30.2 Other Visit Diagnoses Codes Arthritis M19.90 Migraine without status migrainosus, not intractable, unspecified migraine type G43.909 A1C up to 7.3, Rx ozempic. Decreased Lyrica to 225mg daily. She will call when ready for PPI refill and will decrease to 20mg. No other medication changes today. Sugar elevated, rest of labs stable. Follow up 3 months with A1C prior. documented in this encounter [facility] Work Phone: 12-10-2023 History of Present illness Narrative Subjective Patient ID: Fredi Parekh is a 68 y.o. female who presents for pt c/o all over joint pain , sx are worse . HPI Chronic joint for about 3-4 years, multiple joints, worse at night. RF positive 2022. Has tried multiple NSAIDs with minimal effect, Lyrica daily for neuropathy as well. Would like referral rheumatology. Review of Systems Constitutional: Negative. Respiratory: Negative. Cardiovascular: Negative. Gastrointestinal: Negative. Objective BP 122/78 Pulse 75 Ht 1.626 m (5' 4) Wt 84.4 kg (186 lb) SpO2 98% BMI 31.93 kg/m Physical Exam Constitutional: General: She is not in acute distress. Appearance: Normal appearance. She is not ill-appearing. HENT: Head: Normocephalic and atraumatic. Eyes: Extraocular Movements: Extraocular movements intact. Conjunctiva/sclera: Conjunctivae normal. Cardiovascular: Rate and Rhythm: Normal rate. Pulmonary: Effort: Pulmonary effort is normal. Abdominal: General: There is no distension. Musculoskeletal: General: Tenderness present. Normal range of motion. Cervical back: Normal range of motion. Skin: General: Skin is warm and dry. Neurological: General: No focal deficit present. Mental Status: She is alert and oriented to person, place, and time. Psychiatric: Mood and Affect: Mood normal. Behavior: Behavior normal. Thought Content: Thought content normal. Judgment: Judgment normal. Assessment/Plan Referral to Dr. Castorena in [place] and thank you. Follow up at [facility] check in about 3 months. documented in this encounter [facility] Work Phone: 10-17-2023 History of Present illness Narrative 68 y.o. female presents for evaluation of URI. Symptoms including cough, congestion, body aches, malaise, and headache have been present for 3 days and refractory to OTC meds. No fever, chills, nausea, vomiting, abdominal pain, CP, or SOB. No exacerbating factors. Exposure to flu and strep throat. Vitals: 10/17/23 0939 BP: 93/55 Pulse: 77 Resp: 18 Temp: 37.2 C (98.9 F) SpO2: 94% Allergies Allergen Reactions Cortisone Hives Duloxetine Nausea/vomiting Fluoxetine Other Sertraline Other Pneumococcal Vaccine Other Medication Documentation Review Audit Reviewed by Wilner Odonnell MA ([employer] Clerk) on 10/17/23 at 0939 Medication Order Taking? Sig Documenting Provider Last Dose Status acyclovir (Zovirax) 400 mg tablet [id number] Yes Take 1 tablet (400 mg) by mouth 2 times a day. Arnold Hernandes PA-C Taking Active blood sugar diagnostic (Accu-Chek Guide test strips) strip [id number] Yes 1 strip by Not Applicable route 1 (one) time per week. Arnold Hernandes PA-C Taking Active diclofenac (Voltaren) 50 mg EC tablet [id number] Yes Take 1 tablet (50 mg) by mouth 3 times a day. Do not crush, chew, or split. Arnold Hernandes PA-C Taking Active fluticasone (Flonase) 50 mcg/actuation nasal spray [id number] Yes Administer 1 spray into affected nostril(s) 2 times a day. Historical Provider, Taking Active loratadine (Claritin) 10 mg tablet [id number] Yes Take 1 tablet (10 mg) by mouth once daily. Historical Provider, Taking Active montelukast (Singulair) 10 mg tablet [id number] Yes Take 1 tablet (10 mg) by mouth once daily at bedtime. Arnold Hernandes PA-C Taking Active omeprazole (PriLOSEC) [address] capsule [id number] Yes Take 1 capsule (40 mg) by mouth once daily. Arnold Hernandes PA-C Taking Active ondansetron (Zofran) 4 mg tablet [id number] Yes Take 1 tablet (4 mg) by mouth every 6 hours. Arnold Hernandes PA-C Taking Active Discontinued 10/14/23 1007 pregabalin (Lyrica) 300 mg capsule [id number] Yes Take 1 capsule (300 mg) by mouth once daily. Arnold Hernandes PA-C Taking Active propranolol (Inderal) 80 mg tablet [id number] Yes Take 1 tablet (80 mg) by mouth once daily. Arnold Hernandes PA-C Taking Active rosuvastatin (Crestor) 10 mg tablet [id number] Yes Take 1 tablet (10 mg) by mouth once daily at bedtime. Arnold Hernandes PA-C Taking Active History reviewed. No pertinent past medical history. Past Surgical History: Procedure Laterality Date OTHER SURGICAL HISTORY 03/05/2022 section OTHER SURGICAL HISTORY 03/05/2022 Carpal tunnel surgery OTHER SURGICAL HISTORY 03/05/2022 Tenotomy OTHER SURGICAL HISTORY 03/05/2022 Hysterectomy total OTHER SURGICAL HISTORY 03/05/2022 Tonsillectomy with adenoidectomy ROS See HPI Physical Exam Vitals and nursing note reviewed. Constitutional: General: She is not in acute distress. Appearance: Normal appearance. She is normal weight. She is not ill-appearing, toxic-appearing or diaphoretic. HENT: Head: Normocephalic and atraumatic. Right Ear: Tympanic membrane and ear canal normal. Left Ear: Tympanic membrane and ear canal normal. Nose: Congestion present. Mouth/Throat: Mouth: Mucous membranes are moist. Pharynx: Oropharynx is clear. Eyes: Extraocular Movements: Extraocular movements intact. Conjunctiva/sclera: Conjunctivae normal. Pupils: Pupils are equal, round, and reactive to light. Cardiovascular: Rate and Rhythm: Normal rate and regular rhythm. Heart sounds: Normal heart sounds. Pulmonary: Effort: Pulmonary effort is normal. Breath sounds: Normal breath sounds. Comments: Dry cough Lymphadenopathy: Cervical: Cervical adenopathy present. Skin: General: Skin is warm and dry. Capillary Refill: Capillary refill takes less than 2 seconds. Neurological: General: No focal deficit present. Mental Status: She is alert and oriented to person, place, and time. Psychiatric: Mood and Affect: Mood normal. Behavior: Behavior normal. Recent Results (from the past 1 hour(s)) POCT BD Veritor Triplex Ag Collection Time: 10/17/23 10:29 AM Result Value Ref Range POC Triplex SARS-CoV-2 Ag Presumptive negative for Triplex SARS-CoV-2 (no antigen detected) Presumptive negative for Triplex SARS-CoV-2 (no antigen detected) POC Triplex Flu A-Ag Presumptive negative for Triplex FLU A (no antigen detected) Presumptive negative for Triplex FLU A (no antigen detected) POC Triplex Flu B-Ag (A) Presumptive negative for Triplex FLU B (no antigen detected) Positive test for Triplex Flu B Ag (Flu B antigen detected) POCT Group A Streptococcus, PCR manually resulted Collection Time: 10/17/23 10:29 AM Result Value Ref Range POC Group A Strep, PCR Not Detected Not Detected Assessment/Plan/MDM Fredi was seen today for flu symptoms. Diagnoses and all orders for this visit: Influenza B (Primary) - albuterol 90 mcg/actuation inhaler; Inhale 2 puffs every 6 hours if needed for wheezing. - methylPREDNISolone (Medrol Dospak) 4 mg tablets; Take as directed on package. - azithromycin (Zithromax Z-Matthew) 250 mg tablet; Take 2 tablets (500 mg) on Day 1, followed by 1 tablet (250 mg) once daily on Days 2 through 5. Acute upper respiratory infection - POCT BD Veritor Triplex Ag - POCT Group A Streptococcus, PCR manually resulted Acute bronchitis, unspecified organism - albuterol 90 mcg/actuation inhaler; Inhale 2 puffs every 6 hours if needed for wheezing. - methylPREDNISolone (Medrol Dospak) 4 mg tablets; Take as directed on package. - azithromycin (Zithromax Z-Matthew) 250 mg tablet; Take 2 tablets (500 mg) on Day 1, followed by 1 tablet (250 mg) once daily on Days 2 through 5. Encouraged pt to continue otc cold remedies PRN, push by mouth fluids and rest. Patient's clinical presentation is otherwise unremarkable at this time. Patient is discharged with instructions to follow-up with primary care or seek emergency medical attention for worsening symptoms or any new concerns. Rudy Godoy CNP [facility] [phone] documented in this encounter [facility] Work Phone: 09-09-2023 History of Present illness Narrative Subjective Patient ID: Fredi Parekh is a 67 y.o. female who presents for 6 month med check (UDS/CSA due) and GERD (Wants to discuss increasing this). GERD DM2 W/NEUROPATHY: Last A1C 7.1% 02/22/23. No longer taking metformin. Blood sugar at home has averaged around 120. Lyrica effective at reducing neuropathy which consists burning/pain BL feet and some legs. She does daily foot exams. Sees eye doctor regularly. HYPERLIPIDEMIA: Rosuvastatin, compliant, no SE. Lipids good except triglycerides still elevated 02/22/23. HERPES: [facility] put [facility] on ac[facility] chronically and she has not had a breakout was 4-5 years ago. OSTEOARTHRITIS: Worst in hands. Was on celecoxib for years, but became ineffective. Diclofenac 150mg daily has become ineffective as well. GERD: Omeprazole was effective at 20mg daily, having breakthrough symptoms, would like to increase. No SE. MIGRAINES: Propranolol as prophylaxis. Excedrin migraine are effective at aborting. Symptoms of her migraines include nausea/visual changes/photophobia. SEASONAL ALLERGIES: Singulair, Loratadine, Flonase effective. Stable. NAUSEA: Stable on Zofran prn. History of thyroid nodule which was biopsied and tracked for years w/no growth, deemed stable with no further surveillance required per patient. Cologuard good 06/20/22, due again 2024. Would not like referral to [facility] for women's care at this time. Mammogram good 08/29/22, due now. Need DEXA, last WNL. No other concerns, feeling well. Review of Systems Constitutional: Negative. Respiratory: Negative. Cardiovascular: Negative. Gastrointestinal: Negative. Objective BP 118/70 (Patient Position: Sitting) Pulse 81 Ht 1.626 m (5' 4) Wt 83.8 kg (184 lb 11.2 oz) BMI 31.70 kg/m Physical Exam Constitutional: General: She is not in acute distress. Appearance: Normal appearance. She is not ill-appearing or toxic-appearing. HENT: Head: Normocephalic and atraumatic. Eyes: Extraocular Movements: Extraocular movements intact. Conjunctiva/sclera: Conjunctivae normal. Cardiovascular: Rate and Rhythm: Normal rate and regular rhythm. Heart sounds: Normal heart sounds. No murmur heard. No gallop. Pulmonary: Effort: Pulmonary effort is normal. Breath sounds: Normal breath sounds. No stridor. No wheezing. Abdominal: General: There is no distension. Tenderness: There is no right CVA tenderness or left CVA tenderness. Musculoskeletal: General: Normal range of motion. Cervical back: Neck supple. Skin: General: Skin is warm and dry. Findings: No erythema or rash. Neurological: General: No focal deficit present. Mental Status: She is alert and oriented to person, place, and time. Psychiatric: Mood and Affect: Mood normal. Behavior: Behavior normal. Thought Content: Thought content normal. Judgment: Judgment normal. Assessment/Plan Increase omeprazole to 40mg daily. No other medication changes today. A1C slowly increasing, she would like to wait on metformin at this time. All other labs stable. Follow up 6 months with labs prior. documented in this encounter [facility] Work Phone: 08-29-2023 History of Present illness Narrative Subjective Patient ID: Fredi Parekh is a 67 y.o. female who presents for Abdominal Pain (Off and on for a couple weeks and worse since Saturday night). Saturday evening had diarrhea X 5, reports pain/bloating Denies any recent antibiotic use Has taken Miralax yesterday and today Pain started Saturday then had diarrhea, States she has also had gas and having upper abd pain Drinking mint tea with sugar and ate crackers. Has not drank any water for a few days Had labs drawn on Saturday, labs reviewed with patient A1C is at 7.1 Is not taking any medication for diabetes States she controls with diet States she has had this problem in past was constipation and she treated with miralax Abdominal Pain Patient complains of abdominal pain. The pain is described as cramping, and is 6/10 in intensity. The patient is experiencing epigastric pain without radiation. Onset was 4 days ago. Symptoms have been unchanged. Aggravating factors: cold liquids. Alleviating factors: flatus. Associated symptoms: constipation and flatus. The patient denies anorexia, chills, fever, frequency, headache, hematuria, nausea, and vomiting. Review of Systems Constitutional: Positive for appetite change. Negative for activity change, chills, diaphoresis and fever. Respiratory: Negative for shortness of breath. Cardiovascular: Negative for chest pain. Gastrointestinal: Positive for abdominal pain, constipation and diarrhea. Negative for abdominal distention, nausea and vomiting. Musculoskeletal: Negative for arthralgias and myalgias. Skin: Negative. Neurological: Negative for dizziness, light-headedness and headaches. Objective BP 118/80 (Patient Position: Sitting) Pulse 65 Ht 1.626 m (5' 4) Wt 85 kg (187 lb 8 oz) BMI 32.18 kg/m Physical Exam Vitals reviewed. Constitutional: General: She is not in acute distress. Appearance: Normal appearance. She is obese. She is not ill-appearing. Cardiovascular: Rate and Rhythm: Normal rate and regular rhythm. Pulmonary: Effort: Pulmonary effort is normal. Abdominal: General: Bowel sounds are increased. There is no distension. Palpations: Abdomen is soft. Tenderness: There is abdominal tenderness in the epigastric area. There is no guarding. Skin: General: Skin is warm and dry. Neurological: Mental Status: She is alert and oriented to person, place, and time. Assessment/Plan Diagnoses and all orders for this visit: Abdominal pain, epigastric - XR abdomen 1 view; Future Follow bland diet, avoid high fatty foods, overeating, or spicy foods. Recommend increase water intake and increase walking/movement Gastroesophageal reflux disease without esophagitis Currently on omeprazole, continue treatment Flatulence symptom Take OTC Gas X as needed, increase walking and water intake Constipation, unspecified constipation type Hold Miralax, may be contributing to gas and abd pain, if XR normal no need for stool softener Seek emergency treatment if vomiting, fever, or severe pain occur documented in this encounter [facility] Work Phone: 06-28-2023 History of Present illness Narrative Subjective Patient ID: Fredi Parekh is a 67 y.o. female who presents for pt c/o sinus congestion, pressure and ear feel itchy ,tired . HPI X 2 months pressure in face and back of head Feels heavy Sinus drainage post nasal with nauseated No sneezing Taking clairitin flonase and singulair Tried prednisone tried 5 day taper 2 weeks Atbs x2 did not help itchy Review of Systems Constitutional: Positive for fatigue. Negative for chills and fever. HENT: Positive for ear pain. Negative for sneezing. Respiratory: Positive for shortness of breath. Negative for cough and wheezing. Objective BP 124/64 Pulse 64 Temp 36.7 C (98 F) Ht 1.626 m (5' 4) Wt 83 kg (183 lb) BMI 31.41 kg/m Physical Exam Vitals reviewed. Constitutional: Appearance: Normal appearance. HENT: Head: Normocephalic and atraumatic. Right Ear: Tympanic membrane, ear canal and external ear normal. There is no impacted cerumen. Left Ear: Tympanic membrane, ear canal and external ear normal. There is no impacted cerumen. Nose: Nose normal. No congestion or rhinorrhea. Mouth/Throat: Mouth: Mucous membranes are moist. Pharynx: Oropharynx is clear. No oropharyngeal exudate or posterior oropharyngeal erythema. Eyes: Conjunctiva/sclera: Conjunctivae normal. Pulmonary: Effort: Pulmonary effort is normal. Breath sounds: Normal breath sounds. Musculoskeletal: Cervical back: Neck supple. Skin: General: Skin is warm and dry. Neurological: General: No focal deficit present. Mental Status: She is alert and oriented to person, place, and time. Psychiatric: Mood and Affect: Mood normal. Behavior: Behavior normal. Thought Content: Thought content normal. Judgment: Judgment normal. Assessment/Plan Diagnoses and all orders for this visit: Chronic maxillary sinusitis - CT sinus wo IV contrast; Future documented in this encounter [facility] Work Phone: 06-11-2023 History of Present illness Narrative Subjective Patient ID: Fredi Parekh is a 67 y.o. female who presents for pt c/o GARCÍA, throat pain, ear pain x 2 weeks . HPI 2 weeks ago tx with augmentin BID x10 days, endorses augmentin did not improve symptoms, now BL ears are involved and still with congestion and sinus pressure/GARCÍA. Review of Systems Constitutional: Positive for fatigue. HENT: Positive for congestion, ear pain, rhinorrhea, sinus pressure, sinus pain and sore throat. Respiratory: Negative. Cardiovascular: Negative. Gastrointestinal: Negative. Objective BP 120/62 Pulse 64 Temp 36.7 C (98 F) Ht 1.626 m (5' 4) Wt 85.3 kg (188 lb) BMI 32.27 kg/m Physical Exam Constitutional: General: She is not in acute distress. Appearance: Normal appearance. She is not ill-appearing. HENT: Head: Normocephalic and atraumatic. Right Ear: Tympanic membrane, ear canal and external ear normal. Left Ear: Tympanic membrane, ear canal and external ear normal. Nose: Congestion and rhinorrhea present. Mouth/Throat: Mouth: Mucous membranes are moist. Pharynx: Posterior oropharyngeal erythema present. No oropharyngeal exudate. Eyes: Extraocular Movements: Extraocular movements intact. Conjunctiva/sclera: Conjunctivae normal. Cardiovascular: Rate and Rhythm: Normal rate. Pulmonary: Effort: Pulmonary effort is normal. Abdominal: General: There is no distension. Musculoskeletal: General: Normal range of motion. Cervical back: Normal range of motion. Skin: General: Skin is warm and dry. Neurological: General: No focal deficit present. Mental Status: She is alert and oriented to person, place, and time. Psychiatric: Mood and Affect: Mood normal. Behavior: Behavior normal. Thought Content: Thought content normal. Judgment: Judgment normal. Assessment/Plan Rx Levquin x7 days Rx medrol dose pack If symptoms not resolved after Rx will refer to ENT documented in this encounter [facility] Work Phone: 05-27-2023 History of Present illness Narrative Subjective Patient ID: Fredi Parekh is a 67 y.o. female who presents for pt c/o GARCÍA,sinus drainage x 2 weeks . HPI 2 weeks of GARCÍA, sinus drainage, nausea from post nasal drip, sinus tenderness. No fever, no sore throat, no cough, no SOB/CP. Review of Systems Constitutional: Negative. Respiratory: Negative. Cardiovascular: Negative. Gastrointestinal: Negative. Objective BP 130/72 Pulse 65 Temp 36.7 C (98 F) Ht 1.626 m (5' 4) Wt 86.6 kg (191 lb) SpO2 95% BMI 32.79 kg/m Physical Exam Constitutional: General: She is not in acute distress. Appearance: Normal appearance. She is not ill-appearing. HENT: Head: Normocephalic and atraumatic. Comments: Maxillary sinus tenderness BL Nose: Congestion and rhinorrhea present. Eyes: Extraocular Movements: Extraocular movements intact. Conjunctiva/sclera: Conjunctivae normal. Cardiovascular: Rate and Rhythm: Normal rate. Pulmonary: Effort: Pulmonary effort is normal. Abdominal: General: There is no distension. Musculoskeletal: General: Normal range of motion. Cervical back: Normal range of motion. Skin: General: Skin is warm and dry. Neurological: General: No focal deficit present. Mental Status: She is alert and oriented to person, place, and time. Psychiatric: Mood and Affect: Mood normal. Behavior: Behavior normal. Thought Content: Thought content normal. Judgment: Judgment normal. Assessment/Plan Rx augmentin BID x7 days Follow up prn documented in this encounter [facility] Work Phone: 03-07-2023 History of Present illness Narrative Subjective Patient ID: Fredi Parekh is a 67 y.o. female who presents for No chief complaint on file.. HPI Review of Systems Objective There were no vitals taken for this visit. Physical Exam Assessment/Plan Subjective Reason for Visit: Fredi Parekh is an 67 y.o. female here for a Medicare Wellness visit. Past Medical, Surgical, and Family History reviewed and updated in chart. Reviewed all medications by prescribing practitioner or clinical pharmacist (such as prescriptions, OTCs, herbal therapies and supplements) and documented in the medical record. HPI DM2 W/NEUROPATHY: Last A1C 7% 02/22/23. No longer taking metformin. Blood sugar at home has averaged around 120. Lyrica effective at reducing neuropathy which consists burning/pain BL feet and some legs. She does daily foot exams. Sees eye doctor regularly. HYPERLIPIDEMIA: Rosuvastatin, compliant, no SE. Lipids good except triglycerides still elevated 02/22/23. HERPES: [facility] and she has not had a breakout was 4-5 years ago. OSTEOARTHRITIS: Worst in hands. Was on celecoxib for years, but became ineffective. Diclofenac 150mg daily has become ineffective as well. GERD: Omeprazole effective. No SE. MIGRAINES: Excedrin migraine are effective at aborting. Symptoms of her migraines include nausea/visual changes/photophobia. SEASONAL ALLERGIES: Loratadine effective. Stable. LEG CRAMPS: Takes potassium for leg cramps prn. NAUSEA: Stable on Zofran prn. History of thyroid nodule which was biopsied and tracked for years w/no growth, deemed stable with no further surveillance required per patient. Cologuard good 06/20/22, due again 2024. Would not like referral to [facility] for women's care at this time. Mammogram good 08/29/22, due again 2023. Had DEXA about 1 year ago and it was unremarkable. No other concerns, feeling well. Patient Care Team: Arnold Hernandes PA-C as PCP - General Review of Systems Constitutional: Negative. Respiratory: Negative. Cardiovascular: Negative. Gastrointestinal: Negative. Objective Vitals: BP 122/70 Pulse 70 Ht 1.626 m (5' 4) Wt 86.2 kg (190 lb) BMI 32.61 kg/m Physical Exam Constitutional: General: She is not in acute distress. Appearance: Normal appearance. She is not ill-appearing or toxic-appearing. HENT: Head: Normocephalic and atraumatic. Eyes: Extraocular Movements: Extraocular movements intact. Conjunctiva/sclera: Conjunctivae normal. Cardiovascular: Rate and Rhythm: Normal rate and regular rhythm. Heart sounds: Normal heart sounds. No murmur heard. No gallop. Pulmonary: Effort: Pulmonary effort is normal. Breath sounds: Normal breath sounds. No stridor. No wheezing. Abdominal: General: Bowel sounds are normal. There is no distension. Palpations: Abdomen is soft. Tenderness: There is no abdominal tenderness. There is no right CVA tenderness, left CVA tenderness, guarding or rebound. Musculoskeletal: General: Normal range of motion. Cervical back: Neck supple. Skin: General: Skin is warm and dry. Findings: No erythema or rash. Neurological: General: No focal deficit present. Mental Status: She is alert and oriented to person, place, and time. Psychiatric: Mood and Affect: Mood normal. Behavior: Behavior normal. Thought Content: Thought content normal. Judgment: Judgment normal. Assessment/Plan Problem List Items Addressed This Visit None Visit Diagnoses Controlled type 2 diabetes with neuropathy (CMS/HCC) Gastroesophageal reflux disease, unspecified whether esophagitis present Herpes simplex viral infection Hyperlipidemia, unspecified hyperlipidemia type Nausea Seasonal allergies Stop diclofenac, start etodolac 500mg daily. No other medication changes today. Discussed diet/exercise to reduce A1C/triglycerides. Follow up 6 months with fasting labs prior. documented in this encounter [facility] Work Phone: 12-17-2022 History of Present illness Narrative Subjective Patient ID: Fredi Parekh is a 67 y.o. female who presents for pt c/o sinus pain, congestion,body aches, diarrhea . HPI Endorses symptoms for 2 months, she will feel like she is recovering and then symptoms return. Symptoms include L ear pain, sinus congestion, very mild cough, sore throat, severe head pressure, sinus tenderness, GARCÍA. No CP/SOB. No fever. Has been seen at twice and two round of doxycycline which would help, but then symptoms would return. Endorses one dose of Bromphen was very effective at reducing her congestion. Review of Systems Constitutional: Positive for fatigue. Negative for fever. HENT: Positive for congestion, ear pain, postnasal drip, rhinorrhea, sinus pressure, sinus pain and sneezing. Respiratory: Positive for cough. Cardiovascular: Negative. Gastrointestinal: Negative. Objective BP 108/68 Pulse 72 Temp 36.4 C (97.5 F) Ht 1.626 m (5' 4) Wt 88.9 kg (196 lb) BMI 33.64 kg/m Physical Exam Constitutional: General: She is not in acute distress. Appearance: Normal appearance. She is not ill-appearing. HENT: Head: Normocephalic and atraumatic. Comments: BL frontal and maxillary sinus tenderness Right Ear: Tympanic membrane, ear canal and external ear normal. Left Ear: Tympanic membrane, ear canal and external ear normal. Nose: Congestion and rhinorrhea present. Mouth/Throat: Mouth: Mucous membranes are moist. Pharynx: Posterior oropharyngeal erythema present. No oropharyngeal exudate. Eyes: Extraocular Movements: Extraocular movements intact. Conjunctiva/sclera: Conjunctivae normal. Cardiovascular: Rate and Rhythm: Normal rate. Pulmonary: Effort: Pulmonary effort is normal. Breath sounds: Normal breath sounds. No stridor. No wheezing or rales. Abdominal: General: There is no distension. Musculoskeletal: General: Normal range of motion. Cervical back: Normal range of motion. Skin: General: Skin is warm and dry. Neurological: General: No focal deficit present. Mental Status: She is alert and oriented to person, place, and time. Psychiatric: Mood and Affect: Mood normal. Behavior: Behavior normal. Thought Content: Thought content normal. Judgment: Judgment normal. Assessment/Plan Rx Levaquin and Bromphen Advised to take probiotics while taking abx, she agrees Call if symptoms do not resolve/worsen Follow up prn documented in this encounter [facility] Work Phone: 03-27-2022 History of Present illness Narrative I have personally reviewed the [place] report for FREDI PAREKH. I have considered the risks of abuse, dependence, addiction and diversion.Is the patient prescribed a combination of a benzodiazepine and opioid? No.Last urine drug screening date/ordered today: 03/27/22Controlled Substance Agreement:I have printed this form and reviewed each line item with the patient and the patient has verbalized understanding.Date of the last Controlled Substance Agreement: 03/27/22LYRICAWhat is the patient s goal of therapy? Neuropathy relief.Is this being achieved with current treatment? Yes.Pain Assessment and Documentation Tool (PADT)Date of Assessment: 03/27/22Analgesia:Patient reports her pain level on average during the past week is 3 on a 0 - 10 scale.Patient reports that her pain level at its worst during the past week was 7 on a 0 -10 scale.75 % of pain has been relieved during the past week per patientPatient states that the amount of pain relief she is now obtaining from her current pain reliever(s) is enough to make a real difference in her life.Query to clinician: Is the patient's pain relief clinically significant? YesActivities of Daily Living:Physical functioning: SameFamily relationships: SameSocial relationships: SameMood: SameSleep patterns: SameOverall functioning: SameAdverse Events:No, FREDI PAREKH is not experiencing side effects from current pain reliever.Patients overall severity of side effect: NoneActivities of Daily Living:Yes, it is my opinion that this patient is benefitting from Lyrica therapy.Physical functioning: SameFamily relationships: SameSocial relationships: SameMood: SameSleep patterns: SameOverall functioning: Same66 YOF presents for med check.DM2 W/NEUROPATHY: Last A1C 6.6 03/27/22. No longer taking metformin. Blood sugar at home has averaged around 120. Lyrica effective at reducing neuropathy which consists burning/pain BL feet and some legs. She does daily foot exams. She will get eye doctor soon. Needs refill on Lyrica, [place] reviewed and appropriate, urine drug screen obtained, controlled substance agreement signed.HYPERLIPIDEMIA: Rosuvastatin, compliant, no SE. Lipids good except triglycerides 200 03/27/22.HERPES: [facility] and she has not had a breakout was 4-5 years ago.BACK ARTHITIS: Celecoxib effective at reducing pain. No SE.GERD: Omeprazole effective. No SE.MIGRAINES: Propranolol and Excedrin migraine are effective at aborting. Symptoms of her migraines include nausea/visual changes/photophobia.SEASONAL ALLERGIES: Loratadine effective. Stable.LEG CRAMPS: Takes potassium for leg cramps for the past 2 months.History of thyroid nodule which was biopsied and tracked for years w/no growth, deemed stable with no further surveillance required per patient.Would not like referral to [facility] for women's care at this time.Needs mammogram.Had DEXA about 1 year ago and it was unremarkable.No other concerns, feeling well. [facility] Work Phone: 03-27-2022 History of Present illness Narrative I have personally reviewed the [place] report for FREDI PAREKH. I have considered the risks of abuse, dependence, addiction and diversion.Is the patient prescribed a combination of a benzodiazepine and opioid? No.Last urine drug screening date/ordered today: 03/27/22Controlled Substance Agreement:I have printed this form and reviewed each line item with the patient and the patient has verbalized understanding.Date of the last Controlled Substance Agreement: 03/27/22LYRICAWhat is the patient s goal of therapy? Neuropathy relief.Is this being achieved with current treatment? Yes.Pain Assessment and Documentation Tool (PADT)Date of Assessment: 03/27/22Analgesia:Patient reports her pain level on average during the past week is 3 on a 0 - 10 scale.Patient reports that her pain level at its worst during the past week was 7 on a 0 -10 scale.75 % of pain has been relieved during the past week per patientPatient states that the amount of pain relief she is now obtaining from her current pain reliever(s) is enough to make a real difference in her life.Query to clinician: Is the patient's pain relief clinically significant? YesActivities of Daily Living:Physical functioning: SameFamily relationships: SameSocial relationships: SameMood: SameSleep patterns: SameOverall functioning: SameAdverse Events:No, FREDI PAREKH is not experiencing side effects from current pain reliever.Patients overall severity of side effect: NoneActivities of Daily Living:Yes, it is my opinion that this patient is benefitting from Lyrica therapy.Physical functioning: SameFamily relationships: SameSocial relationships: SameMood: SameSleep patterns: SameOverall functioning: Same66 YOF presents for med check.DM2 W/NEUROPATHY: Last A1C 6.6 03/27/22. No longer taking metformin. Blood sugar at home has averaged around 120. Lyrica effective at reducing neuropathy which consists burning/pain BL feet and some legs. She does daily foot exams. She will get eye doctor soon. Needs refill on Lyrica, [place] reviewed and appropriate, urine drug screen obtained, controlled substance agreement signed.HYPERLIPIDEMIA: Rosuvastatin, compliant, no SE. Lipids good except triglycerides 200 03/27/22.HERPES: [facility] put [facility] chronically and she has not had a breakout was 4-5 years ago.BACK ARTHITIS: Celecoxib effective at reducing pain. No SE.GERD: Omeprazole effective. No SE.MIGRAINES: Propranolol and Excedrin migraine are effective at aborting. Symptoms of her migraines include nausea/visual changes/photophobia.SEASONAL ALLERGIES: Loratadine effective. Stable.LEG CRAMPS: Takes potassium for leg cramps for the past 2 months.History of thyroid nodule which was biopsied and tracked for years w/no growth, deemed stable with no further surveillance required per patient.Would not like referral to [facility] for women's care at this time.Needs mammogram.Had DEXA about 1 year ago and it was unremarkable.No other concerns, feeling well.03/30/22: Urine drug screen results as expected. [facility] Work Phone: 03-27-2022 History of Present illness Narrative 66 YOF presents for med check.DM2 W/NEUROPATHY: Last A1C 6.6 03/27/22. No longer taking metformin. Blood sugar at home has averaged around 120. Lyrica effective at reducing neuropathy which consists burning/pain BL feet and some legs. She does daily foot exams. Sees eye doctor regularly.HYPERLIPIDEMIA: Rosuvastatin, compliant, no SE. Lipids good except triglycerides 200 03/27/22.HERPES: [facility] put [facility] on acycl[facility] chronically and she has not had a breakout was 4-5 years ago.BACK ARTHITIS: Celecoxib effective at reducing pain. No SE.GERD: Omeprazole effective. No SE.MIGRAINES: Propranolol and Excedrin migraine are effective at aborting. Symptoms of her migraines include nausea/visual changes/photophobia.SEASONAL ALLERGIES: Loratadine effective. Stable.LEG CRAMPS: Takes potassium for leg cramps for the past 2 months.NAUSEA: Stable.History of thyroid nodule which was biopsied and tracked for years w/no growth, deemed stable with no further surveillance required per patient.Cologuard good 06/20/22, due again 2024.Would not like referral to [facility] for women's care at this time.Mammogram good 08/29/22, due again 2023.Had DEXA about 1 year ago and it was unremarkable.No other concerns, feeling well. [facility] Work Phone: Evaluation note Diagnosis Acute recurrent maxillary sinusitis- Primary documented in this encounter [facility] Work Phone: Evaluation note* Diagnosis Routine general medical examination at health care facility- Primary Routine general medical examination at a health care facility Controlled type 2 diabetes with neuropathy ([facility]) Type II or unspecified type diabetes mellitus with neurological manifestations, not stated as uncontrolled Gastroesophageal reflux disease, unspecified whether esophagitis present Herpes simplex viral infection Herpes simplex without mention of complication Hyperlipidemia, unspecified hyperlipidemia type Nausea Nausea alone Seasonal allergies Allergic rhinitis, cause unspecified Primary osteoarthritis involving multiple joints documented in this encounter [facility] Work Phone: Evaluation note* Diagnosis Acute non-recurrent maxillary sinusitis- Primary documented in this encounter [facility] Work Phone: Evaluation note* Diagnosis Acute recurrent maxillary sinusitis- Primary documented in this encounter [facility] Work Phone: Evaluation note* Diagnosis Chronic maxillary sinusitis- Primary documented in this encounter [facility] Work Phone: Evaluation note* Diagnosis Chronic maxillary sinusitis documented in this encounter [facility] Work Phone: Evaluation note* Diagnosis Abdominal pain, epigastric- Primary Gastroesophageal reflux disease without esophagitis Esophageal reflux Flatulence symptom Flatulence, eructation, and gas pain Constipation, unspecified constipation type Abdominal pain, epigastric documented in this encounter [facility] Work Phone: Evaluation note* Diagnosis Postmenopausal- Primary Asymptomatic postmenopausal status (age-related) (natural) Controlled type 2 diabetes with neuropathy (CMS/HCC) Type II or unspecified type diabetes mellitus with neurological manifestations, not stated as uncontrolled Gastroesophageal reflux disease, unspecified whether esophagitis present Encounter for screening mammogram for breast cancer Long-term use of high-risk medication Seasonal allergies Allergic rhinitis, cause unspecified Nausea Nausea alone Mixed hyperlipidemia Herpes simplex viral infection Herpes simplex without mention of complication Primary osteoarthritis involving multiple joints documented in this encounter [facility] Work Phone: Evaluation note* Diagnosis Postmenopausal Asymptomatic postmenopausal status (age-related) (natural) documented in this encounter [facility] Work Phone: Evaluation note* Diagnosis Postmenopausal Asymptomatic postmenopausal status (age-related) (natural) documented in this encounter [facility] Work Phone: Evaluation note* Diagnosis Encounter for screening mammogram for breast cancer documented in this encounter [facility] Work Phone: Evaluation note* Diagnosis Influenza B- Primary Influenza with other respiratory manifestations Acute upper respiratory infection Acute upper respiratory infections of unspecified site Acute bronchitis, unspecified organism documented in this encounter [facility] Work Phone: Evaluation note* Diagnosis Controlled type 2 diabetes with neuropathy (Multi)- Primary Type II or unspecified type diabetes mellitus with neurological manifestations, not stated as uncontrolled Arthralgia, unspecified joint Polyarthritis with positive rheumatoid factor (Multi) documented in this encounter [facility] Work Phone: Evaluation note* Diagnosis Controlled type 2 diabetes with neuropathy- Primary Type II or unspecified type diabetes mellitus with neurological manifestations, not stated as uncontrolled Mixed hyperlipidemia Screening for thyroid disorder Gastroesophageal reflux disease without esophagitis Esophageal reflux Herpes simplex viral infection Herpes simplex without mention of complication Seasonal allergies Allergic rhinitis, cause unspecified Nausea Nausea alone Other migraine without status migrainosus, not intractable Rheumatoid arthritis with positive rheumatoid factor, involving unspecified site (Multi) documented in this encounter [facility] Work Phone: Evaluation note* Diagnosis Routine general medical examination at health care facility- Primary Routine general medical examination at a health care facility Controlled type 2 diabetes with neuropathy (Multi) Type II or unspecified type diabetes mellitus with neurological manifestations, not stated as uncontrolled Arthritis Unspecified arthropathy, site unspecified Seasonal allergies Allergic rhinitis, cause unspecified Nausea Nausea alone Migraine without status migrainosus, not intractable, unspecified migraine type Hyperlipidemia, unspecified hyperlipidemia type Gastroesophageal reflux disease, unspecified whether esophagitis present Rheumatoid arthritis with positive rheumatoid factor, involving unspecified site (Multi) documented in this encounter [facility] Work Phone: Evaluation note* Diagnosis Dog bite, initial encounter- Primary documented in this encounter [facility] Work Phone: Evaluation note* Diagnosis Long-term use of high-risk medication- Primary Controlled type 2 diabetes with neuropathy Type II or unspecified type diabetes mellitus with neurological manifestations, not stated as uncontrolled Rheumatoid arthritis with positive rheumatoid factor, involving unspecified site (Multi) Screening mammogram for breast cancer Mixed hyperlipidemia Gastroesophageal reflux disease without esophagitis Esophageal reflux Hyperlipidemia, unspecified hyperlipidemia type Herpes simplex viral infection Herpes simplex without mention of complication Nausea Nausea alone documented in this encounter [facility] Work Phone: Evaluation note* Diagnosis Screening mammogram for breast cancer documented in this encounter [facility] Work Phone: Evaluation note* Diagnosis Left eye pain- Primary documented in this encounter [facility] Work Phone: Evaluation note* Diagnosis Routine general medical examination at health care facility- Primary Routine general medical examination at a health care facility Seasonal allergies Allergic rhinitis, cause unspecified Migraine without status migrainosus, not intractable, unspecified migraine type Colon cancer screening Special screening for malignant neoplasms, colon Controlled type 2 diabetes with neuropathy (Multi) Type II or unspecified type diabetes mellitus with neurological manifestations, not stated as uncontrolled Screening for thyroid disorder Mixed hyperlipidemia Gastroesophageal reflux disease without esophagitis Esophageal reflux Hyperlipidemia, mixed Mixed hyperlipidemia documented in this encounter [facility] Work Phone: History of Present illness Narrative* 66 YOF presents to establish care. * Used to be a patient here. * DM2 W/NEUROPATHY: Last A1C 7 per patient. No longer taking metformin. Blood sugar at home has averaged around 120. Lyrica effective at reducing neuropathy which consists burning/pain BL feet and somelegs. She does daily foot exams. She will get eye doctor soon. * HYPERLIPIDEMIA: Rosuvastatin, compliant, no SE. * HERPES: [facility] and she has not had a breakout was 4-5 years ago. * BACK ARTHITIS: Celecoxib effective at reducing pain. No SE. * GERD: Omeprazole effective. No SE. * MIGRAINES: Propranolol and Excedrin migraine are effective at aborting. Symptoms of her migraines include nausea/visual changes/photophobia. * SEASONAL ALLERGIES: Loratadine effective. Stable. * LEG CRAMPS: Takes potassium for leg cramps for the past 2 months. * History of thyroid nodule which was biopsied and tracked for years w/no growth, deemed stable with no further surveillance required per patient. * Would not like referral to [facility] for women's care at this time. * Needs mammogram. * Feeling well, no concerns. [facility] Work Phone: Reoouo for referral (narrative)* Consultation (Routine) - Authorized Specialty Diagnoses / Procedures Referred By Karen cisneros Referred To Contact Primary Care Procedures Follow Up In Primary Care - Established Arnold Hernandes PA-C [address] [place] [address] Referral ID Status Reason Start Date Expiration Date V isits Requested Visits Authorized [id number] Authorized 03/07/2023 09/03/2023 1 1 [facility] Work Phone: Revmif for referral (narrative)* Consultation (Routine) - Authorized Specialty Diagnoses / Procedures Referred By Karen cisneros Referred To Contact Primary Care Procedures Follow Up In Primary Care - Established Arnold Hernandes PA-C [address] [facility], [place] [id number] Referral ID Status Reason Start Date Expiration Date V isits Requested Visits Authorized [id number] Authorized 09/09/2023 09/08/2024 1 1 * Imaging (Routine) - Authorized Specialty Diagnoses / Procedures Referred By Karen cisneros Referred To Contact Radiology Diagnoses Encounter for screening mammogram for breast cancer Procedures BI mammo bilateral screening tomosynthesis Arnold Hernandes PA-C [address] [facility], [place] [phone] Referral ID Status Reason Start Date Expiration Date Visits Requested Visits Authorized [id number] Authorized Perform Procedure 09/09/2023 09/08/2024 1 1 * Imaging (Routine) - Pending Review Specialty Diagnoses / Procedures Referred By Karen cisneros Referred To Contact Radiology Diagnoses Postmenopausal Procedures XR DEXA bone density Arnold Hernandes PA-C [address] [facility], [place] [id number] Referral ID Status Reason Start Date Expiration Date Visits Requested Visits Authorized [id number] Pending Review Perform Procedure 09/09/2023 09/08/2024 1 1 [facility] Work Phone: Rezfip for referral (narrative)* Consultation (Routine) - Authorized Specialty Diagnoses / Procedures Referred By Karen cisneros Referred To Contact Rheumatology Diagnoses Arthralgia, unspecified joint Polyarthritis with positive rheumatoid factor (Multi) Arnold Hernandes PA-C [address] [facility], [place] [phone] Referral ID Status Reason Start Date Expiration Date Visits Requested Visits Authorized [id number] Authorized Specialty Services Required 12/10/2023 12/09/2024 [address] Kell Whitlock [facility] Work Phone: Reggih for referral (narrative)* Consultation (Routine) - Authorized Specialty Diagnoses / Procedures Referred By Karen t Referred To Contact Primary Care Procedures Follow Up In Primary Care - Established Arnold Hernandes PA-C [address] [facility], [place] [id number] Phone: tel: fax: Referral ID Status Reason Start Date Expiration Date V isits Requested Visits Authorized [id number] Authorized 06/11/2024 06/11/2025 1 1 [facility] Work Phone: Reason for referral (narrative)* Consultation (Routine) - Authorized Specialty Diagnoses / Procedures Referred By Karen t Referred To Contact Primary Care Procedures Follow Up In Primary Care - Established Arnold Hernandes PA-C [address] [facility], [place] [address] Referral ID Status Reason Start Date Expiration Date V isits Requested Visits Authorized [id number] Authorized 03/09/2024 03/09/2025 1 1 [facility] Work Phone: Reason for visit Narrative* Imaging (Routine) - Authorized Specialty Diagnoses / Procedures Referred By Karen t Referred To Contact Radiology Diagnoses Screening mammogram for breast cancer Procedures BI mammo bilateral screening tomosynthesis Arnold Hernandes PA-C [address] [facility], [place] [id number] Phone: tel: fax: Referral ID Status Reason Start Date Expiration Date Visits Requested Visits Authorized [id number] Authorized Perform Procedure 12/11/2024 12/11/2025 1 1 [facility] Work Phone: Summary Purpose Family History No Family History Records FoundUnknown Family Member Name Dates Details Family history of type 2 susan betes mellitus: Mother, Father(V18.0, Z83.3) Status:Active Family history of stent: Mot her(V19.8, Z84.89) Status:Active Family history of hypertensi on: Mother(V17.49, Z82.49) Status:Active Family history of malignant neoplasm of urinary bladder: Father(V16.52, Z80.52) Status:Active Family history of myocardial infarction: Father(V17.3, Z82.49) Status:Active Family history of chronic ob structive pulmonary disease: Father(V17.6, Z82.5) Status:Active Family history of emphysema: Father(V17.6, Z82.5) Status:Active Family history of asthma: Fa ther(V17.5, Z82.5) Status:Active Unknown Family Member Name Dates Details Family history of emphysema: Father(V17.6, Z82.5) Status:Active Family history of asthma: Fa ther(V17.5, Z82.5) Status:Active Family history of chronic ob structive pulmonary disease: Father(V17.6, Z82.5) Status:Active Family history of myocardial infarction: Father(V17.3, Z82.49) Status:Active Family history of malignant neoplasm of urinary bladder: Father(V16.52, Z80.52) Status:Active Family history of hypertensi on: Mother(V17.49, Z82.49) Status:Active Family history of stent: Mot her(V19.8, Z84.89) Status:Active Family history of type 2 susan betes mellitus: Mother, Father(V18.0, Z83.3) Status:Active Unknown Family Member Name Dates Details Family history of type 2 susan betes mellitus: Mother, Father(V18.0, Z83.3) Status:Active Family history of stent: Mot her(V19.8, Z84.89) Status:Active Family history of hypertensi on: Mother(V17.49, Z82.49) Status:Active Family history of malignant neoplasm of urinary bladder: Father(V16.52, Z80.52) Status:Active Family history of myocardial infarction: Father(V17.3, Z82.49) Status:Active Family history of chronic ob structive pulmonary disease: Father(V17.6, Z82.5) Status:Active Family history of emphysema: Father(V17.6, Z82.5) Status:Active Family history of asthma: Fa ther(V17.5, Z82.5) Status:Active Unknown Family Member Name Dates Details Family history of type 2 susan betes mellitus: Mother, Father(V18.0, Z83.3) Status:Active Family history of stent: Mot her(V19.8, Z84.89) Status:Active Family history of hypertensi on: Mother(V17.49, Z82.49) Status:Active Family history of malignant neoplasm of urinary bladder: Father(V16.52, Z80.52) Status:Active Family history of myocardial infarction: Father(V17.3, Z82.49) Status:Active Family history of chronic ob structive pulmonary disease: Father(V17.6, Z82.5) Status:Active Family history of emphysema: Father(V17.6, Z82.5) Status:Active Family history of asthma: Fa ther(V17.5, Z82.5) Status:Active Unknown Family Member Name Dates Details Family history of asthma: Fa ther(V17.5, Z82.5) Status:Active Family history of emphysema: Father(V17.6, Z82.5) Status:Active Family history of chronic ob structive pulmonary disease: Father(V17.6, Z82.5) Status:Active Family history of myocardial infarction: Father(V17.3, Z82.49) Status:Active Family history of malignant neoplasm of urinary bladder: Father(V16.52, Z80.52) Status:Active Family history of hypertensi on: Mother(V17.49, Z82.49) Status:Active Family history of stent: Mot her(V19.8, Z84.89) Status:Active Family history of type 2 susan betes mellitus: Mother, Father(V18.0, Z83.3) Status:Active Unknown Family Member Name Dates Details Family history of type 2 susan betes mellitus: Mother, Father(V18.0, Z83.3) Status:Active Family history of stent: Mot her(V19.8, Z84.89) Status:Active Family history of hypertensi on: Mother(V17.49, Z82.49) Status:Active Family history of malignant neoplasm of urinary bladder: Father(V16.52, Z80.52) Status:Active Family history of myocardial infarction: Father(V17.3, Z82.49) Status:Active Family history of chronic ob structive pulmonary disease: Father(V17.6, Z82.5) Status:Active Family history of emphysema: Father(V17.6, Z82.5) Status:Active Family history of asthma: Fa ther(V17.5, Z82.5) Status:Active Unknown Family Member Name Dates Details Family history of type 2 susan betes mellitus: Mother, Father(V18.0, Z83.3) Status:Active Family history of stent: Mot her(V19.8, Z84.89) Status:Active Family history of hypertensi on: Mother(V17.49, Z82.49) Status:Active Family history of malignant neoplasm of urinary bladder: Father(V16.52, Z80.52) Status:Active Family history of myocardial infarction: Father(V17.3, Z82.49) Status:Active Family history of chronic ob structive pulmonary disease: Father(V17.6, Z82.5) Status:Active Family history of emphysema: Father(V17.6, Z82.5) Status:Active Family history of asthma: Fa ther(V17.5, Z82.5) Status:Active Unknown Family Member Name Dates Details Family history of type 2 susan betes mellitus: Mother, Father(V18.0, Z83.3) Status:Active Family history of stent: Mot her(V19.8, Z84.89) Status:Active Family history of hypertensi on: Mother(V17.49, Z82.49) Status:Active Family history of malignant neoplasm of urinary bladder: Father(V16.52, Z80.52) Status:Active Family history of myocardial infarction: Father(V17.3, Z82.49) Status:Active Family history of chronic ob structive pulmonary disease: Father(V17.6, Z82.5) Status:Active Family history of emphysema: Father(V17.6, Z82.5) Status:Active Family history of asthma: Fa ther(V17.5, Z82.5) Status:Active Unknown Family Member Name Dates Details Family history of type 2 susan betes mellitus: Mother, Father(V18.0, Z83.3) Status:Active Family history of stent: Mot her(V19.8, Z84.89) Status:Active Family history of hypertensi on: Mother(V17.49, Z82.49) Status:Active Family history of malignant neoplasm of urinary bladder: Father(V16.52, Z80.52) Status:Active Family history of myocardial infarction: Father(V17.3, Z82.49) Status:Active Family history of chronic ob structive pulmonary disease: Father(V17.6, Z82.5) Status:Active Family history of emphysema: Father(V17.6, Z82.5) Status:Active Family history of asthma: Fa ther(V17.5, Z82.5) Status:Active Unknown Family Member Name Dates Details Family history of type 2 susan betes mellitus: Mother, Father(V18.0, Z83.3) Status:Active Family history of stent: Mot her(V19.8, Z84.89) Status:Active Family history of hypertensi on: Mother(V17.49, Z82.49) Status:Active Family history of malignant neoplasm of urinary bladder: Father(V16.52, Z80.52) Status:Active Family history of myocardial infarction: Father(V17.3, Z82.49) Status:Active Family history of chronic ob structive pulmonary disease: Father(V17.6, Z82.5) Status:Active Family history of emphysema: Father(V17.6, Z82.5) Status:Active Family history of asthma: Fa ther(V17.5, Z82.5) Status:Active Unknown Family Member Name Dates Details Family history of type 2 susan betes mellitus: Mother, Father(V18.0, Z83.3) Status:Active Family history of stent: Mot her(V19.8, Z84.89) Status:Active Family history of hypertensi on: Mother(V17.49, Z82.49) Status:Active Family history of malignant neoplasm of urinary bladder: Father(V16.52, Z80.52) Status:Active Family history of myocardial infarction: Father(V17.3, Z82.49) Status:Active Family history of chronic ob structive pulmonary disease: Father(V17.6, Z82.5) Status:Active Family history of emphysema: Father(V17.6, Z82.5) Status:Active Family history of asthma: Fa ther(V17.5, Z82.5) Status:Active Unknown Family Member Name Dates Details Family history of type 2 susan betes mellitus: Mother, Father(V18.0, Z83.3) Status:Active Family history of stent: Mot her(V19.8, Z84.89) Status:Active Family history of hypertensi on: Mother(V17.49, Z82.49) Status:Active Family history of malignant neoplasm of urinary bladder: Father(V16.52, Z80.52) Status:Active Family history of myocardial infarction: Father(V17.3, Z82.49) Status:Active Family history of chronic ob structive pulmonary disease: Father(V17.6, Z82.5) Status:Active Family history of emphysema: Father(V17.6, Z82.5) Status:Active Family history of asthma: Fa ther(V17.5, Z82.5) Status:Active Unknown Family Member Name Dates Details Family history of type 2 susan betes mellitus: Mother, Father(V18.0, Z83.3) Status:Active Family history of stent: Mot her(V19.8, Z84.89) Status:Active Family history of hypertensi on: Mother(V17.49, Z82.49) Status:Active Family history of malignant neoplasm of urinary bladder: Father(V16.52, Z80.52) Status:Active Family history of myocardial infarction: Father(V17.3, Z82.49) Status:Active Family history of chronic ob structive pulmonary disease: Father(V17.6, Z82.5) Status:Active Family history of emphysema: Father(V17.6, Z82.5) Status:Active Family history of asthma: Fa ther(V17.5, Z82.5) Status:Active Unknown Family Member Name Dates Details Family history of type 2 susan betes mellitus: Mother, Father(V18.0, Z83.3) Status:Active Family history of stent: Mot her(V19.8, Z84.89) Status:Active Family history of hypertensi on: Mother(V17.49, Z82.49) Status:Active Family history of malignant neoplasm of urinary bladder: Father(V16.52, Z80.52) Status:Active Family history of myocardial infarction: Father(V17.3, Z82.49) Status:Active Family history of chronic ob structive pulmonary disease: Father(V17.6, Z82.5) Status:Active Family history of emphysema: Father(V17.6, Z82.5) Status:Active Family history of asthma: Fa ther(V17.5, Z82.5) Status:Active Unknown Family Member Name Dates Details Family history of asthma: Fa ther(V17.5, Z82.5) Status:Active Family history of emphysema: Father(V17.6, Z82.5) Status:Active Family history of chronic ob structive pulmonary disease: Father(V17.6, Z82.5) Status:Active Family history of myocardial infarction: Father(V17.3, Z82.49) Status:Active Family history of malignant neoplasm of urinary bladder: Father(V16.52, Z80.52) Status:Active Family history of hypertensi on: Mother(V17.49, Z82.49) Status:Active Family history of stent: Mot her(V19.8, Z84.89) Status:Active Family history of type 2 susan betes mellitus: Mother, Father(V18.0, Z83.3) Status:Active Unknown Family Member Name Dates Details Family history of type 2 susan betes mellitus: Mother, Father(V18.0, Z83.3) Status:Active Family history of stent: Mot her(V19.8, Z84.89) Status:Active Family history of hypertensi on: Mother(V17.49, Z82.49) Status:Active Family history of malignant neoplasm of urinary bladder: Father(V16.52, Z80.52) Status:Active Family history of myocardial infarction: Father(V17.3, Z82.49) Status:Active Family history of chronic ob structive pulmonary disease: Father(V17.6, Z82.5) Status:Active Family history of emphysema: Father(V17.6, Z82.5) Status:Active Family history of asthma: Fa ther(V17.5, Z82.5) Status:Active Unknown Family Member Name Dates Details Family history of type 2 susan betes mellitus: Mother, Father(V18.0, Z83.3) Status:Active Family history of stent: Mot her(V19.8, Z84.89) Status:Active Family history of hypertensi on: Mother(V17.49, Z82.49) Status:Active Family history of malignant neoplasm of urinary bladder: Father(V16.52, Z80.52) Status:Active Family history of myocardial infarction: Father(V17.3, Z82.49) Status:Active Family history of chronic ob structive pulmonary disease: Father(V17.6, Z82.5) Status:Active Family history of emphysema: Father(V17.6, Z82.5) Status:Active Family history of asthma: Fa ther(V17.5, Z82.5) Status:Active Unknown Family Member Name Dates Details Family history of asthma: Fa ther(V17.5, Z82.5) Status:Active Family history of emphysema: Father(V17.6, Z82.5) Status:Active Family history of chronic ob structive pulmonary disease: Father(V17.6, Z82.5) Status:Active Family history of myocardial infarction: Father(V17.3, Z82.49) Status:Active Family history of malignant neoplasm of urinary bladder: Father(V16.52, Z80.52) Status:Active Family history of hypertensi on: Mother(V17.49, Z82.49) Status:Active Family history of stent: Mot her(V19.8, Z84.89) Status:Active Family history of type 2 susan betes mellitus: Mother, Father(V18.0, Z83.3) Status:Active Advance Directives No Advanced Directives Records FoundNo Advanced Directives Records FoundNo Advanced Directives Records FoundNo Advanced Directives Records FoundNo Advanced Directives Records FoundNo Advanced Directives Records FoundNo Advanced Directives Records FoundNo Advanced Directives Records FoundNo Advanced Directives Records Found Chief Complaint new pt to est no concerns.pt here for med check, control med agreement needed.pt here for med check, control med agreement needed.3 month med check. Reason for Referral Specialty Diagnoses / Procedures Referred By Contac t Referred To Contact Radiology Diagnoses Chronic maxillary sinusitis Procedures CT sinus wo IV contrast Acacia Campos MD [address] [facility], [address] [address] Referral ID Status Reason Start Date Expiration Date Visits Requested Visits Authorized [id number] Pending Review Perform Procedure 3 06/27/2024 1 1 Specialty Diagnoses / Procedures Referred By Contac t Referred To Contact Radiology Diagnoses Chronic maxillary sinusitis Procedures CT sinus wo IV contrast Acacia Campos MD [address] [facility], [place] [id number] [facility] [address] [place] [address] Referral ID Status Reason Start Date Expiration Date Visits Requested Visits Authorized [id number] Authorized Perform Procedure 3 06/27/2024 1 1 Specialty Diagnoses / Procedures Referred By Contac t Referred To Contact Radiology Diagnoses Abdominal pain, epigastric Procedures XR abdomen 1 view Marcos Arita, [employer] INSTALLER-SEISMIC ENGINEER [address] [facility], [place] [id number] Referral ID Status Reason Start Date Expiration Date Visits Requested Visits Authorized [id number] Authorized Perform Procedure 08/29/2023 08/28/2024 1 1 Specialty Diagnoses / Procedures Referred By Contac t Referred To Contact Radiology Diagnoses Postmenopausal Procedures XR DEXA bone density Arnold Hernandes PA-C [address] [facility], [place] [id number] Referral ID Status Reason Start Date Expiration Date Visits Requested Visits Authorized [id number] Pending Review Perform Procedure 09/09/2023 09/08/2024 1 1 Specialty Diagnoses / Procedures Referred By Contac t Referred To Contact Radiology Diagnoses Encounter for screening mammogram for breast cancer Procedures BI mammo bilateral screening tomosynthesis Arnold Hernandes PA-C [address] [facility], [place] [id number] Referral ID Status Reason Start Date Expiration Date Visits Requested Visits Authorized [id number] Authorized Perform Procedure 09/09/2023 09/08/2024 1 1 Additional Source Comments INFORMATION SOURCE (unrecogn ized section and content) DATE CREATED AUTHOR 04/13/2018 [facility] DATE CREATED AUTHOR AUTHOR'S ORGANIZ ATION 06/29/2022 [employer] DATE CREATED AUTHOR AUTHOR'S ORGANIZ ATION 09/01/2022 [facility] DATE CREATED AUTHOR AUTHOR'S ORGANIZ ATION 10/04/2022 [facility] DATE CREATED AUTHOR AUTHOR'S ORGANIZ ATION 03/05/2024 [facility] DATE CREATED AUTHOR AUTHOR'S ORGANIZ ATION 08/31/2024 [facility] DATE CREATED AUTHOR AUTHOR'S ORGANIZ ATION 05/06/2025 [facility] DATE CREATED AUTHOR AUTHOR'S ORGANIZ ATION 06/12/2025 [facility] DATE CREATED AUTHOR AUTHOR'S ORGANIZ ATION 06/15/2025 [facility] <item> Privacy Markings (unrecogniz ed section and content) Section Author: Juliet Gomez PROHIBITION ON REDISCLOSURE OF CONFIDENTIAL INFORMATION This notice accompanies a disclosure of information concerning a client made to you with the consent of such client. Reason for Visit (unrecogniz ed section and content) Reason Comments pt here for med check Pt c/o daily nause a , pt c/o red bumps all over Specialty Diagnoses / Procedures Referred By Karen t Referred To Contact Primary Care Procedures Follow Up In Primary Care - Established Arnold Hernandes PA-C [address] [facility], [address] [address] Phone: tel: fax: Referral ID Status Reason Start Date Expiration Date V isits Requested Visits Authorized [id number] Authorized 06/11/2024 06/11/2025 1 1 Reason Comments Medicare Annual Wellness Visit Subsequen t Med check Specialty Diagnoses / Procedures Referred By Larryac t Referred To Contact Primary Care Procedures Follow Up In Primary Care - Established Arnold Hernandes PA-C [address] [facility], [address] [address] Referral ID Status Reason Start Date Expiration Date V isits Requested Visits Authorized [id number] Authorized 09/09/2023 09/08/2024 1 1 Reason Comments pt c/o sinus pain, congestion,body aches , diarrhea Reason Comments Medicare Annual Wellness Visit Subsequen t 6 month med check Reason Comments pt c/o GARCÍA,sinus drainage x 2 weeks Reason Comments pt c/o GARCÍA, throat pain, ear pain x 2 wee ks Reason Comments pt c/o sinus congestion, pressure and ea r feel itchy ,tired Specialty Diagnoses / Procedures Referred By Karen t Referred To Contact Radiology Diagnoses Chronic maxillary sinusitis Procedures CT sinus wo IV contrast Acacia Campos MD [address] [facility], [address] [address] [facility] [address] [place] [address] Referral ID Status Reason Start Date Expiration Date Visits Requested Visits Authorized [id number] Authorized Perform Procedure 3 06/27/2024 1 1 Reason Comments Abdominal Pain Off and on for a cou ple weeks and worse since Saturday night Reason Comments 6 month med check UDS/CSA due GERD Wants to discuss inc reasing this Referral ID Status Reason Start Date Expiration Date Visits Re quested Visits Authorized [id number] Closed 03/07/2023 09/03/2023 1 1 Specialty Diagnoses / Procedures Referred By Karen t Referred To Contact Radiology Diagnoses Postmenopausal Procedures XR DEXA bone density Arnold Hernandes PA-C [address] [facility], [address] [address] Referral ID Status Reason Start Date Expiration Date Visits Requested Visits Authorized [id number] Pending Review Perform Procedure 09/09/2023 09/08/2024 1 1 Specialty Diagnoses / Procedures Referred By Karen t Referred To Contact Radiology Diagnoses Encounter for screening mammogram for breast cancer Procedures BI mammo bilateral screening tomosynthesis Arnold Hernandes PA-C [address] [facility], [address] [address] Referral ID Status Reason Start Date Expiration Date Visits Requested Visits Authorized [id number] Authorized Perform Procedure 09/09/2023 09/08/2024 1 1 Reason Comments Flu Symptoms GARCÍA, fever, sinus pre ssure, body aches x 4 days. Exposure to influenza. Reason Comments pt c/o all over joint pain , sx are wors e Reason Comments pt here for med check Referral ID Status Reason Start Date Expiration Date V isits Requested Visits Authorized [id number] Authorized 03/09/2024 03/09/2025 1 1 Reason Comments Animal Bite Dog bite on left elb ow and right hand x 1 day Reason Comments Eye Problem Bilateral eye irrita tion and itching X 3 days Reason Comments Medicare Annual Wellness Visit Subsequen t Pt here for medcheck , pt c/o hemorrhoids Care Teams (unrecognized sec tion and content) Cyber Security Engineer Relationship Specialty Start Date End Date Arnold Hernandes PA-C [address] [facility], [address] [address] PCP - General 03/05/22 Cyber Security Engineer Relationship Specialty Start Date End Date Arnold Hernandes PA-C [address] [facility], [place] [address] [place] [id number] PCP - General 03/05/22 Cyber Security Engineer Relationship Specialty Start Date End Date Arnold Hernandes PA-C [address] [facility], [address] [place] [address] PCP - General 03/05/22 Cyber Security Engineer Relationship Specialty Start Date End Date Arnold Hernandes PA-C [address] [facility], [address] [place] [address] PCP - General 03/05/22 Cyber Security Engineer Relationship Specialty Start Date End Date Arnold Hernandes PA-C [address] [facility], [address] [place] [address] PCP - General 03/05/22 Cyber Security Engineer Relationship Specialty Start Date End Date Arnold Hernandes PA-C [address] [facility], [address] [place] [address] PCP - General 03/05/22 Cyber Security Engineer Relationship Specialty Start Date End Date Arnold Hernandes PA-C [address] [facility], [address] [place] [address] PCP - General 03/05/22 Cyber Security Engineer Relationship Specialty Start Date End Date Arnold Hernandes PA-C [address] [facility], [address] [place] [address] PCP - General 03/05/22 Cyber Security Engineer Relationship Specialty Start Date End Date Arnold Hernandes PA-C [address] [facility], [address] [place] [address] PCP - General 03/05/22 Cyber Security Engineer Relationship Specialty Start Date End Date Arnold Hernandes PA-C [address] [facility] [address] [place] [address] PCP - General 03/05/22 Cyber Security Engineer Relationship Specialty Start Date End Date Arnold Hernandes PA-C [address] [facility], [address] [place] [address] PCP - General 03/05/22 Arnold Hernandes PA-C [address] [facility], [address] [place] [address] PCP - MSSP ACO Attributed Provider 05/19/23 Cyber Security Engineer Relationship Specialty Start Date End Date Arnold Hernandes PA-C [address] [facility], [address] [place] [address] PCP - General 03/05/22 Arnold Hernandes PA-C [address] [facility], [address] [place] [address] PCP - MSSP ACO Attributed Provider 05/19/23 Cyber Security Engineer Relationship Specialty Start Date End Date Arnold Hernandes PA-C [address] [facility] [address] [place] [address] PCP - General 03/05/22 Arnold Hernandes PA-C [address] [facility], [address] [place] [address] PCP - MSSP ACO Attributed Provider 05/19/23 Cyber Security Engineer Relationship Specialty Start Date End Date Arnold Hernandes PA-C [address] [facility], [address] [place] [address] PCP - General 03/05/22 Arnold Hernandes PA-C [address] [facility], [address] [place] [address] PCP - MSSP ACO Attributed Provider 05/19/23 Cyber Security Engineer Relationship Specialty Start Date End Date Arnold Hernandes PA-C [address] [facility], [address] [place] [address] PCP - General 03/05/22 Arnold Hernandes PA-C [address] [facility], [address] [place] [address] PCP - MSSP ACO Attributed Provider 05/19/23 Cyber Security Engineer Relationship Specialty Start Date End Date Arnold Hernandes PA-C [address] [facility], [address] [place] [address] PCP - General 03/05/22 Cyber Security Engineer Relationship Specialty Start Date End Date Arnold Hernandes PA-C [address] [facility], [address] [place] [address] PCP - General 03/05/22 Cyber Security Engineer Relationship Specialty Start Date End Date Arnold Hernandes PA-C [address] [facility], [address] [place] [address] PCP - General 03/05/22 Arnold Hernandes PA-C [address] [facility], [address] [place] [address] PCP - MSSP ACO Attributed Provider 08/19/24 Cyber Security Engineer Relationship Specialty Start Date End Date Arnold Hernandes PA-C [address] [facility], [address] [place] [address] PCP - General 03/05/22 Arnold Hernandes PA-C [address] [facility], [address] [place] [address] PCP - MSSP ACO Attributed Provider 08/19/24 FOR RECORDS PERTAINING TO PATIENTS WHO ARE OR HAVE BEEN ENROLLED IN A CHEMICAL DEPENDENCY/SUBSTANCEABUSE PROGRAM, SOME INFORMATION MAY BE OMITTED. This clinical summary was aggregated from multiple sources. Caution should be exercised in using it in the provision of clinical care. This summary normalizes information from multiple sources, and as a consequence, information in this document may materially change the coding, format and clinical context of patient data. In addition, data may be omitted in some cases. CLINICAL DECISIONS SHOULD BE BASED ON THE PRIMARY CLINICAL RECORDS. [employer] provides no warranty or guarantee of the accuracy or completeness of information in this document.
[2025-08-19 10:08] LABS: Red Blood Cell Count Test/G6PD 4.14 x10E6/uL (3.77-5.28)
== END | disposition home or self-care (01) ==
LOC: MTLAB 14:24
PROVIDERS: PCP Physician Assistant; Referring Provider Internal Medicine Rheumatology; Visit Provider Internal Medicine Rheumatology
DX: M05.79 Rheumatoid arthritis with rheumatoid factor of multiple sites without organ or systems involvement (principal); Z79.899 Other long term (current) drug therapy
CPT/HCPCS: 36415; 82955